=== PATIENT | male | born 1950 | race Caucasian/White ===

== ENCOUNTER 2024-03-08 12:35 | Outpatient (AMB) | payer MEDICARE, SELFPAY ==
--- OUTSIDE RECORDS SUMMARY | 2024-03-08 12:53 | XMS_ITS | Encounter Summary ---
Author Organization [facility] Address [address] [place] [address] Care Team Providers Care Chief Scientist Name Role Phone Jadon Dunn MD Primary Care Provider [phone] Encounter Details Date Type Department Care Team (Late st Contact Info) Description 03/01/2024 Orders Only [facility] Family Practice [address] [place] [phone] Jadon Dunn MD [address] [place] [address] Social History Tobacco Use Types Packs/Day Years Used Date Smoking Tobacco: Never Smokeless Tobacco: Never Comments:: Alcohol Use Standard Drinks/Week Comments Yes 0 (1 standard drink = 0.6 oz pur e alcohol) holidays [facility] Utilities Answer Date Recorded In the past 12 months has [employer], gas, oil, or water [employer] threatened to shut off services in your home? No 01/16/2024 Hunger Vital Sign Answer Date Recorded Within the past 12 months, y ou worried that your food would run out before you got the money to buy more. Never true 01/16/20 24 Within the past 12 months, t he food you bought just didn't last and you didn't have money to get more. Never true 01/16/2024 Transportation Answer Date Recorded In the past 12 months, has l ack of reliable transportation kept you from medical appointments, meetings, work or from getting things needed for daily living? No 01/16/2024 Housing Answer Date Recorded Housing Risk Low 2 01/16/2024 Housing Risk Medium Not on file 01/16/2024 Housing Risk High Not on file 01/16/2024 What is your living situation today? LSSTEADY 01/16/2024 Sex and Gender Information Value Date Recorded Sex Assigned at Male 09/03/2019 8:11 AM EDT Legal Sex Male 2:44 AM EDT Gender Identity Male 09/03/2019 8:11 AM EDT Sexual Orientation Straight 09/03/2019 8: 11 AM EDT Occupation Industry Job Start Date Job End Date Retired Not on file Not on file Not on file documented as of this encounter Progress Notes * Jadon Dunn MD - 03/01/2024 4:57 PM EST called requesting refill. documented in this encounter Plan of Treatment Upcoming Encounters Date Type Department Care Team (Late st Contact Info) Description 04/02/2024 10:45 AM EST Follow-Up [facility] 85 [place] Pulmonology [address] [address] Hardeep Mayers MD [address] [address] 04/12/2024 3:30 PM EST Follow-Up [facility] Neurology Clinic [address] [place] [address] Luz Felix MD [address] [place] [address] 06/05/2024 1:30 PM EDT Office Visit [facility] B [address] [place] [address] Timo Payne MD [address] [place] [address] 06/19/2024 2:00 PM EDT Follow-Up [facility] Endocrinology Clinic [address] [place] [address] Electrical Accessories I Assembler: Anna Moody MD 55 [place] [address] 07/16/2024 8:00 AM EDT Appointment [facility] Cardiac Ultrasound [address] [place] [address] 07/16/2024 9:00 AM EDT Follow-Up [facility] 4th floor Cardiology Medicine [address] [place] [address] Electrical Accessories I Assembler: Iveth Padron 02/10/2025 4:40 PM EST Follow-Up [facility] 4th floor Cardiology Medicine [address] [place] [address] Electrical Accessories I Assembler: Angely Yancey MD [address] [place] [address] documented as of this encounter Visit Diagnoses Not on filedocumented in this encounter Care Teams Chief Scientist Relationship Specialty Start Date End Date Jadon Dunn MD [address] [place] [address] PCP - General Family Medicine 08/25/16 documented as of this encounter
--- OUTSIDE RECORDS SUMMARY | 2024-03-08 12:53 | XMS_ITS | Encounter Summary ---
Author Organization [facility] Address [address] [place] [address] Care Team Providers Care Retail Zone Specialist Name Role Phone Jadon Dunn MD Primary Care Provider [phone] Encounter Details Date Type Department Care Team (Late st Contact Info) Description 02/20/2024 Telephone [facility] Family Practice [address] [place] [phone] Jadon Dunn MD [address] [place] [address] Social History Tobacco Use Types Packs/Day Years Used Date Smoking Tobacco: Never Smokeless Tobacco: Never Comments:: Alcohol Use Standard Drinks/Week Comments Yes 0 (1 standard drink = 0.6 oz pur e alcohol) holidays [facility] Utilities Answer Date Recorded In the past 12 months has [employer], gas, oil, or water [employer] threatened to shut off services in your [...] on file documented as of this encounter Miscellaneous Notes * Telephone Encounter - ABDOUL Gilman - 02/23/2024 10:02 AM EST The patient spoke with PCP yesterday 02/22/2024. Pt is all set. * Telephone Encounter - ABDOUL Gilman - 02/22/2024 1:00 PM EST The patients /July called and left a VM. I called her back and I am currently waiting for her to reach back out. July: [phone] * Telephone Encounter - ABDOUL Gilman - 02/22/2024 9:55 AM EST The patient was offered an appointment with Dr. Escalante today to discuss pain. Due to the patients pain and trouble with mobility the patient needs to coordinate transportation. The patient is going tocall us back once he secures transportation. He was reminded that UC or the ED are options as well. * Telephone Encounter - Ivon Urbina MA - 02/21/2024 3:57 PM EST Pt still waiting for your recommendations. Pt still with the same symptoms from yesterday Please advice? * Telephone Encounter - ABDOUL Gilman - 02/20/2024 10:07 AM EST The patient spoke with Dr. Dunn on 01/29/2024. The patient called this morning to discuss pain again. He stated that they tylenol is helping with severity but he is still in constant pain. He would like to know if anything else could be done. He is able to find relief based on position. The patient stated that he is finding himself spending theday on his back. He explained that he devlops worsening pain with movement. Pt is still denying fever, rash, chills, nausea, vomiting, diarrhea, swelling, leg weakness, numbing, tingling, and bowel or urinary incontinence. Do you have further recommendations? Would you like to evaluate him in office ? documented in this encounter Plan of Treatment Upcoming Encounters Date Type Department Care Team (Late st Contact Info) Description 04/02/2024 10:45 AM EST Follow-Up [facility] 85 [place] Pulmonology [address] [place] [address] Hardeep Mayers MD [address] [address] 04/12/2024 3:30 PM EST Follow-Up [facility] Neurology Clinic [address] [place] [address] Luz Felix MD [address] [place] [address] 06/05/2024 1:30 PM EDT Office Visit [facility] B [address] [place] [address] Timo Payne MD 119 [place] [address] 06/19/2024 2:00 PM EDT Follow-Up [facility] Endocrinology Clinic [address] [place] [address] Clinical Operations Leader: Anna Moody MD 55 [place] [address] 07/16/2024 8:00 AM EDT Appointment [facility] Cardiac Ultrasound [address] [place] [address] 07/16/2024 9:00 AM EDT Follow-Up [facility] 4th floor Cardiology Medicine [address] [place] [address] Clinical Operations Leader: Iveth Padron 02/10/2025 4:40 PM EST Follow-Up [facility] 4th floor Cardiology Medicine [address] [place] [address] Clinical Operations Leader: Angely Yancey MD [address] [place] [address] documented as of this encounter Visit Diagnoses Not on filedocumented in this encounter Care Teams Retail Zone Specialist Relationship Specialty Start Date End Date Jadon Dunn MD [address] [place] [address] PCP - General Family Medicine 08/25/16 documented as of this encounter
--- OUTSIDE RECORDS SUMMARY | 2024-03-08 12:53 | XMS_ITS | Encounter Summary ---
Author Organization [facility] Address [address] [place] [address] Care Team Providers Care Senior Production Manager Name Role Phone Jadon Dunn MD Primary Care Provider [phone] Reason for Visit * Reason Onset Date Comments PAC Appt Request - Established- Luz Felix MD 03/01/2024 Encounter Details Date Type Department Care Team (Late st Contact Info) Description 03/01/2024 Telephone [facility] Neurology Clinic [address] [place] [address] [phone] Telephone Intake, Staff PAC Appt Request - Gerardo- Luz Felix MD Social History Tobacco Use Types Packs/Day Years Used Date Smoking Tobacco: Never Smokeless Tobacco: Never Comments:: Alcohol Use Standard Drinks/Week Comments Yes 0 (1 standard drink = 0.6 oz pur e alcohol) holidays [facility] Utilities Answer Date Recorded In the past 12 months has [employer], gas, oil, or water [employer] threatened to shut off services in your [...] encounter Miscellaneous Notes * Telephone Encounter - Marisela Holland - 03/01/2024 4:03 PM EST Called and spoke with patient and r/s appt * Telephone Encounter - Tanesha Kunz (Jenn) - 03/01/2024 3:57 PM EST Pt's is calling to reschedule appt on 03/08/[address] Felix, I'm to schedule using DT. Please reach to Sean bah reschedule. # [phone] documented in this encounter Plan of Treatment Upcoming Encounters Date Type Department Care Team (Late st Contact Info) Description 04/02/2024 10:45 AM EST Follow-Up [facility] 85 [place] Pulmonology 85 [facility] [address] [place] [address] Hardeep Mayers MD [address] [address] 04/12/2024 3:30 PM EST Follow-Up [facility] Neurology Clinic [address] [place] [address] Luz Felix MD [address] [place] [address] 06/05/2024 1:30 PM EDT Office Visit [facility] B [address] [place] [address] Timo Payne MD [address] [place] [address] 06/19/2024 2:00 PM EDT Follow-Up [facility] Endocrinology Clinic [address] [place] [address] Composition Instructor: Anna Moody MD 55 [place] [address] 07/16/2024 8:00 AM EDT Appointment [facility] Cardiac Ultrasound [address] [place] [address] 07/16/2024 9:00 AM EDT Follow-Up [facility] 4th floor Cardiology Medicine [address] [place] [address] Composition Instructor: Iveth Padron 02/10/2025 4:40 PM EST Follow-Up [facility] 4th floor Cardiology Medicine [address] [place] [address] Composition Instructor: Angely Yancey MD [address] [place] [address] documented as of this encounter Visit Diagnoses Not on filedocumented in this encounter Care Teams Senior Production Manager Relationship Specialty Start Date End Date Jadon Dunn MD [address] [place] [address] PCP - General Family Medicine 08/25/16 documented as of this encounter
--- OUTSIDE RECORDS SUMMARY | 2024-03-08 12:53 | XMS_ITS | Encounter Summary ---
Author Organization [facility] Address [address] [place] [address] Care Team Providers Care Senior Managing Director Name Role Phone Jadon Dunn MD Primary Care Provider [phone] Reason for Referral * Surgical (Routine) - Authorized Specialty Diagnoses / Procedures Referred By Contac t Referred To Contact Neurosurgery Diagnoses Spinal stenosis, unspecified spinal region Jadon Dunn MD [address] [place] [address] Phone: tel: fax: Lauro Jolly MD [address] [place] [address] Phone: tel: fax: Referral ID Status Reason Start Date Expiration Date Visits Requested Visits Authorized [id number] Authorized Specialty Services Required 02/28/2024 08/29/2025 6 6 Encounter Details Date Type Department Care Team (Late st Contact Info) Description 02/28/2024 Orders Only [facility] Family Practice [address] [place] [phone] Jadon Dunn MD [address] [place] [address] [phone] Spinal stenosis, unspecified spinal region (Primary Dx) Social History Tobacco Use Types Packs/Day Years Used Date Smoking Tobacco: Never Smokeless Tobacco: Never Comments:: Alcohol Use Standard Drinks/Week Comments Yes 0 (1 standard drink = 0.6 oz pur e alcohol) holidays [facility] Utilities Answer Date Recorded In the past 12 months has th e electric, gas, oil, or water company threatened to shut off services in your [...] 8:11 AM EDT Sexual Orientation Straight 09/03/2019 8 :11 AM EDT Occupation Industry Job Start Date Job End Date Retired Not on file Not on file Not on file documented as of this encounter Plan of Treatment Upcoming Encounters Date Type Department Care Team (Late st Contact Info) Description 04/02/2024 10:45 AM EST Follow-Up [facility] 85 [place] Pulmonology [address] [address] Hardeep Mayers MD [address] [address] 04/12/2024 3:30 PM EST Follow-Up [facility] Neurology Clinic [address] [place] [address] Luz Felix MD 26 [place] [address] 06/05/2024 1:30 PM EDT Office Visit [facility] B [address] [place] [address] Timo Payne MD 119 [place] [address] 06/19/2024 2:00 PM EDT Follow-Up [facility] Endocrinology Clinic 55 [place] [address] Golf Teacher: Anna Moody MD [address] [place] [address] 07/16/2024 8:00 AM EDT Appointment [facility] Cardiac Ultrasound 55 [place] [address] 07/16/2024 9:00 AM EDT Follow-Up [facility] 4th floor Cardiology Medicine [address] [place] [address] Golf Teacher: Iveth Padron 02/10/2025 4:40 PM EST Follow-Up [facility] 4th floor Cardiology Medicine [address] [place] [address] Golf Teacher: Angely Yancey MD [address] [place] [address] Scheduled Referrals Name Type Priority Associated Diagnoses Orde r Schedule Ambulatory referral to Neurosurgery Outpatient Referral Routine Spinal stenosis, unspecified spinal region Expected: 02/28/2024, Expires: 08/27/2024 documented as of this encounter Visit Diagnoses Diagnosis Spinal stenosis, unspecified spinal region- Primary documented in this encounter Care Teams Senior Managing Director Relationship Specialty Start Date End Date Jadon Dunn MD [address] [place] [address] PCP - General Family Medicine 08/25/16 documented as of this encounter
--- OUTSIDE RECORDS SUMMARY | 2024-03-08 12:53 | XMS_ITS | Encounter Summary ---
Author Organization [facility] Address [address] [place] [address] Care Team Providers Care Twisting Press Operator Name Role Phone Jadon Dunn MD Primary Care Provider [phone] Encounter Details Date Type Department Care Team (Late Contact Info) Description 07/03/2021 myChart Message [facility] [address] [place] [phone] Mychart, Generic Provider [address] [place], [place] [phone] Follow up appointment requested Social History Tobacco Use Types Packs/Day Years Used Date Smoking Tobacco: Never Smokeless Tobacco: Never Comments:: Alcohol Use Standard Drinks/Week Comments Yes 0 (1 standard drink = 0.6 oz pur e alcohol) ocassionally Sex and Gender Information Value Date Recorded [...] Info) Description 04/02/2024 10:45 AM EST Follow-Up [facility] 85 [place] Pulmonology [address] [address] Hardeep Mayers MD [address] [address] 04/12/2024 3:30 PM EST Follow-Up [facility] Neurology Clinic 55 [place] [address] Luz Felix MD 26 [place] [address] 06/05/2024 1:30 PM EDT Office Visit [facility] B [address] [place] [address] Timo Payne MD [address] [place] [address] 06/19/2024 2:00 PM EDT Follow-Up [facility] Endocrinology Clinic 55 [place] [address] Picu Nurse: Anna Moody MD [address] [place] [address] 07/16/2024 8:00 AM EDT Appointment [facility] Cardiac Ultrasound [address] [place] [address] 07/16/2024 9:00 AM EDT Follow-Up [facility] 4th floor Cardiology Medicine [address] [place] [address] Picu Nurse: Iveth Padron 02/10/2025 4:40 PM EST Follow-Up [facility] 4th floor Cardiology Medicine [address] [place] [address] Picu Nurse: Angely Yancey MD [address] [place] [address] documented as of this encounter Visit Diagnoses Not on filedocumented in this encounter Care Teams Twisting Press Operator Relationship Specialty Start Date End Date Jadon Dunn MD [address] [place], [place] [phone] PCP - General Family Medicine 08/25/16 documented as of this encounter
--- OUTSIDE RECORDS SUMMARY | 2024-03-08 12:53 | XMS_ITS | Encounter Summary ---
Author Organization [facility] Address [address] [place] [address] Care Team Providers Care Tank Setter Name Role Phone Jadon Dunn MD Primary Care Provider [phone] Encounter Details Date Type Department Care Team (Late st Contact Info) Description 01/27/2023 Orders Only [facility] Interventional Radiology [address] [place] [address] [phone] Jenniffer Swanson MD [address] [place] [phone] Social History Tobacco Use Types Packs/Day Years Used Date Smoking Tobacco: Never Smokeless Tobacco: Never Comments:: Alcohol Use Standard Drinks/Week Comments Yes 0 (1 standard drink = 0.6 oz pure alcohol) occasional, less than one drink per month Transportation Answer Date Recorded Please ollie the areas for ich the patient would like information or assistance: None Apply 01/25/2023 Lack of Transportation (Medical) Not on file 01/25/2023 Housing Stability Answer Date Recorded Please ollie the areas for ich the patient would like information or assistance: None Apply 01/25/2023 Unable to Pay for Housing in the Last Year Not o n file 01/25/2023 Last EPDS Total Score Not on file 01/25/2023 Unstable Housing in the Last Year Not on file 01/25/2023 Sex and Gender Information Value Date Recorded [...] Info) Description 04/02/2024 10:45 AM EST Follow-Up [facility] 85 [place] Pulmonology [address] [address] Hardeep Mayers MD [address] [address] 04/12/2024 3:30 PM EST Follow-Up [facility] Neurology Clinic 55 [place] [address] Luz Felix MD 26 [place] [address] 06/05/2024 1:30 PM EDT Office Visit [facility] B [address] [place] [address] Timo Payne MD [address] [place] [address] 06/19/2024 2:00 PM EDT Follow-Up [facility] Endocrinology Clinic [address] [place] [address] Reservations Clerk: Anna Moody MD [address] [place] [address] 07/16/2024 8:00 AM EDT Appointment [facility] Cardiac Ultrasound [address] [place] [address] 07/16/2024 9:00 AM EDT Follow-Up [address] floor Cardiology Medicine [address] [place] [address] Reservations Clerk: Iveth Padron 02/10/2025 4:40 PM EST Follow-Up [address] Cardiology Medicine [address] [place] [address] Reservations Clerk: Angely Yancey MD [address] [place] [address] documented as of this encounter Visit Diagnoses Not on filedocumented in this encounter Care Teams Tank Setter Relationship Specialty Start Date End Date Jadon Dunn MD [address] [place] [address] PCP - General Family Medicine 08/25/16 documented as of this encounter
--- OUTSIDE RECORDS SUMMARY | 2024-03-08 12:53 | XMS_ITS | Encounter Summary ---
Author Organization [facility] Address [address] [place] [address] Care Team Providers Care Customs Verifier Name Role Phone Jadon Dunn MD Primary Care Provider [phone] Encounter Details Date Type Department Care Team (Late st Contact Info) Description 02/22/2024 Documentation [facility] Family Practice [address] [place] [phone] Jadon Dunn MD [address] [place] [address] Social History Tobacco Use Types Packs/Day Years Used Date Smoking Tobacco: Never Smokeless Tobacco: Never Comments:: Alcohol Use Standard Drinks/Week Comments Yes 0 (1 standard drink = 0.6 oz pur e alcohol) holidays [facility] Utilities Answer Date Recorded In the past 12 months has [employer], gas, oil, or water [employer] threatened to shut off services in your [...] Progress Notes * Jadon Dunn MD - 02/22/2024 11:33 AM EST PC to Pt Still having pain. MRI is Monday; Dr. Felix is next Monday Pain is OK when supine but is severe with standing. Also bad with sitting. Sx start in buttocks and go down his leg PT not really helped. Sleep is OK without difficulty. A/P: L Sciatica without trauma in Pt with complex PMHx Will add a plan LS film if he can tolerate Get MRI on Monday Tramadol prn daytime if needs to go to appointments. Follow up mychart. documented in this encounter Plan of Treatment Upcoming Encounters Date Type Department Care Team (Late st Contact Info) Description 04/02/2024 10:45 AM EST Follow-Up [facility] 85 [place] Pulmonology 85 [facility] [address] [place] [address] Hardeep Mayers MD [address] [address] 04/12/2024 3:30 PM EST Follow-Up [facility] Neurology Clinic [address] [place] [address] Luz Felix MD [address] [place] [address] 06/05/2024 1:30 PM EDT Office Visit [facility] B [address] [place] [address] Timo Panye MD [address] [place] [address] 06/19/2024 2:00 PM EDT Follow-Up [facility] Endocrinology Clinic [address] [place] [address] Transportation Maintenance Supervisor: Anna Moody MD [address] [place] [address] 07/16/2024 8:00 AM EDT Appointment [facility] Cardiac Ultrasound [address] [place] [address] 07/16/2024 9:00 AM EDT Follow-Up [facility] 4th floor Cardiology Medicine [address] [place] [address] Transportation Maintenance Supervisor: Iveth Padron 02/10/2025 4:40 PM EST Follow-Up [facility] 4th floor Cardiology Medicine [address] [place] [address] Transportation Maintenance Supervisor: Angely Yancey MD [address] [place] [address] Scheduled Orders Name Type Priority Associated Diagnoses Orde r Schedule XR Lumbar Spine 2 or 3 Views Imaging Routine Sciatica of left side Expected: 02/22/2024, Expires: 04/23/2025 documented as of this encounter Visit Diagnoses Diagnosis Sciatica of left side- Primary documented in this encounter Care Teams Customs Verifier Relationship Specialty Start Date End Date Jadon Dunn MD 4 [place] [address] PCP - General Family Medicine 08/25/16 documented as of this encounter
--- OUTSIDE RECORDS SUMMARY | 2024-03-08 12:53 | XMS_ITS | Clinical Summary ---
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 aspirin 81 mg EC tablet Take 1 tablet (81 mg total) by mouth once a day. 90 tablet 3 03/28/19 24 Active rosuvastatin (CRESTOR) 20 mg tablet Take 1 tablet (20 mg total) by mouth nightly. 90 tablet 3 03/28/19 24 Active lisinopriL (PRINIVIL,ZESTRI L) 40 mg tabletIndication s:Essential (primary) hypertension TAKE 1 TABLET EVERY DAY DIRECTED. 90 tablet 3 11/15/19 24 Active sertraline (ZOLOFT) 25 mg tablet Take 2 tablets (50 mg total) by mouth once a day. 60 tablet 3 11/18/19 24 Active methIMAzole (TAPAZOLE) 5 mg tablet Take 1 tablet (5 mg total) by mouth once a day. 90 tablet 3 12/22/19 24 Active diclofenac (VOLTAREN) 75 mg EC tablet Take 1 tablet (75 mg total) by mouth 2 times a day. 60 tablet 1 03/01/19 25 Active traMADoL (ULTRAM) 50 mg tabletIndication s:Spinal stenosis, unspecified spinal region Take 1 tablet (50 mg total) by mouth every 8 hours as needed for pain for up to 5 days. 15 tablet 03/04/19 25 025 Active traMADoL (ULTRAM) 50 mg tablet Take 1 tablet (50 mg total) by mouth every 8 hours as needed for pain for up to 5 days. 15 tablet 02/21/19 025 Discontinued Active Problems Problem Noted Date Diagnosed Date Acute neuritis 01/16/2024 Assessment & Plan (01/16/2024 5:05 PM EST): Differential includes infectious versus secondary to the Tapazole versus referred pain from the lumbar spine. Will obtain labs. Venous duplex in [place] demonstrated no sign of a DVT so I will not do a D-dimer at this time as there is no clinical symptoms to warrant it. Will start diclofenac 75 twice daily with the hopes of further controlling the pain. Patient is urged to walk with a cane or a walker and do everything he can to not fall. As he seems to be considerably improving, will continue to follow and make neurology and endocrine aware. 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 Luz Felix as the family is interested in considering infusion therapy for his dementia. They are not scheduled to see him till sometime later next year. Parkinsonism 06/09/2023 Assessment & Plan (07/19/2023 5:49 PM EDT): Neurology took him off the Sinemet for a week and then ultimately it appears decided to keep him off it. Clinically today he has little to no recognizable tremor. I recommend they follow-up with Dr. Felix to decide next steps concerning this as well as his memory loss. Vertigo 03/24/2022 Hyperglycemia 01/19/2022 Assessment & Plan (01/19/2022 1:33 PM EST): Will repeat A1c and lipids Short-term memory loss 01/19/2022 Assessment & Plan (07/19/2023 5:50 PM EDT): Unchanged clinically. His still has to give him direction with driving and he was able to get 1 out of 3 after 5 minutes on memory testing. He was able to do serial threes which is impressive. Would like neurology to complete the workup with this which includes an LP. Assessment & Plan (04/26/2023 2:01 PM EDT): Clinically seems to have responded to the Sinemet although he and his noticed only small differences. He was able to do serial threes and remember 3 objects at 5 minutes. I expressed with him my concern about him driving and for now he should only drive when someone is with him as he has some sense of direction issue. His feels that his coordination is excellent and not a concern. I reminded him that should he notice any decrease in his ability to respond he must stop driving and he agrees. He assures me he does not feel depressed but he still is hyperfocused on politics. I urged him to please stop watching the news and limited to less than 10 minutes a day. Assessment & Plan (01/25/2023 2:51 PM EST): Differential diagnosis includes medication induced versus small vessel disease versus related to his aortic stenosis versus new onset dementia Alzheimer's type. Will obtain labs to rule out metabolic causes as well as infectious causes. Will obtain MRI with and without contrast of the brain. Will contact neurology to assist in further evaluation. Differential diagnosis and outcomes are reviewed. He is to hold all of the vitamins and supplements he is currently taking. Assessment & Plan (07/27/2022 2:47 PM EDT): This appears resolved. Switch statins as noted above Assessment & Plan (01/19/2022 1:41 PM EST): I was apprised by his inability to recall objects at 1 and 3 minutes. Labs will be sent and he will be referred to neurology. In light of his longstanding tremor, he had a work-up by neurology in the distant past but neither of us can remember when. Encounter for screening colonoscopy 03/05/2021 Bilateral hearing loss 10/30/2018 Assessment & Plan (01/19/2022 1:41 PM EST): Appears stable. We will follow Assessment & Plan (09/04/2019 3:32 PM EDT): Reviewed details of hearing test; F/U if worsens; using drops for cerumen Assessment & Plan (10/30/2018 2:38 PM EDT): Bolanos Lateralized to Right; will refer for audiologic eval. Bilateral impacted cerumen 10/30/2018 Assessment & Plan (10/30/2018 2:39 PM EDT): After IC; TM irrigated and cerumen removed with spoon bilaterally without complication Encounter for general adult medical examination with abnormal findings 09/26/2017 Assessment & Plan (07/27/2022 2:46 PM EDT): All vaccines are up-to-date as other well is all other screening issues. I am curious if he should have a bone density test in light of his thyroid disease etc. He is very aggressive with weightbearing exercise so I do not imagine that he has osteoporosis. Message sent to Dr. Russo to determine neck steps. Advanced directive is up-to-date and current. Assessment & Plan (07/14/2021 3:14 PM EDT): He is scheduled for a colonoscopy this fall. All of his other issues are up-to-date all vaccines and other health maintenance issues. Advanced directive is recorded in [facility] Assessment & Plan (07/14/2020 1:39 PM EDT): Will set up CRC later this year; he requests PSA without Sx; will order. Continue exercise. Assessment & Plan (11/29/2019 10:02 AM EDT): Received influenza vaccine today otherwise completely caught up. Assessment & Plan (10/30/2018 11:18 AM EDT): Will give flu shot this year otherwise is current. Keep exercising 5 days a week. Assessment & Plan (09/26/2017 4:12 PM EDT): After IC discussion, agrees to Prostate cancer screening. Discuss pros and cons. Rec Zoster vaccine. Flu in the fall. Exercise; he agrees to join a local gym. Non-alcoholic fatty liver disease 08/31/2016 Assessment & Plan (07/27/2022 2:47 PM EDT): LFTs look great with his diet and exercise plan will continue to follow clinically Assessment & Plan (01/19/2022 1:41 PM EST): Check LFTs today. Assessment & Plan (07/14/2021 3:14 PM EDT): Very stable his weight stable and his exercise routine is excellent. We will check A1c today. LFTs as well Assessment & Plan (07/14/2020 1:43 PM EDT): Back on track exercising and losing weight. Will follow Assessment & Plan (11/29/2019 10:01 AM EDT): 5% weight loss over the last year. He is congratulated. Urged to keep up the diet and resume his exercise routine. Especially as winter comes on. We will continue to follow. Labs after the first of the year Assessment & Plan (10/30/2018 11:17 AM EDT): 10 pounds over the last 12 months. Continue current eating regimen and exercise. Assessment & Plan (05/01/2018 3:23 PM EDT): We discussed his weight gain and the goal of 190. We will add Metamucil when teaspoon 3 times daily increase fluid exercise decrease carbohydrates decrease meal size. Recheck in 3-6 months depending upon how successful he is doing. Assessment & Plan (09/26/2017 4:17 PM EDT): Very happy with weight loss progress. CHeck LFT's and ultimately needs repeat US if weight loss gets to under 200; his goal is 170's Gall stone 08/31/2016 Benign head tremor 05/13/2014 Assessment & Plan (01/25/2023 2:50 PM EST): He has had this times many years and I believe sometime in the past he was seen by neurology but he cannot recall and I do not see any evidence of that in epic. He no worse than prior. Carpal tunnel syndrome of right wrist 01/21/2014 Arthritis of hand, degenerative 12/25/2013 Graves' disease 12/05/2011 Assessment & Plan (01/16/2024 5:06 PM EST): Currently on Tapazole. His labs were just done in our stable. Will discuss with Dr. Russo Assessment & Plan (07/19/2023 5:50 PM EDT): He is clinically asymptomatic currently on Tapazole 5 mg a day. 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 Assessment & Plan (06/20/2023 9:34 AM EDT): Documented history of graves disease. Stable on Methomazole 5mg Daily. - Continue home methimazole. Assessment & Plan (07/14/2021 3:14 PM EDT): He has a follow-up this fall with endocrinology we will check TSH today. Assessment & Plan (01/12/2021 2:57 PM EST): We discuss the pro and con of tapazole; he agrees to continue. Assessment & Plan (07/14/2020 1:39 PM EDT): Per Dr. Russo; ? If needs BMD scan; clinically unstable Assessment & Plan (09/04/2019 3:29 PM EDT): PEr Karan; doing well. Assessment & Plan (05/01/2018 3:23 PM EDT): We will recheck TSH today. Previous neurology workup felt his tremor was associated to his previous history of Graves'. Diverticulosis 11/16/2010 GONSALO (obstructive sleep apnea) 11/16/2010 Assessment & Plan (07/19/2023 5:48 PM EDT): This week and will be the first time since he stopped using his CPAP that his can determine if he has had any apnea or worsening of snoring. Patient states he does not feel he needs it we will be curious to see what her thoughts would be. Questions also whether he needs a repeat sleep study with his recent weight loss. Might consider. Assessment & Plan (01/19/2022 1:41 PM EST): He reports good success with his CPAP. He will discuss with his if she notices any unusual behavior Assessment & Plan (01/12/2021 3:02 PM EST): Uses CPAP successfully; Assessment & Plan (05/01/2018 3:24 PM EDT): He has reported daytime fatigue with napping almost every day. Unsure if this is because of his semi-nursing home or because of insufficient sleep. Will refer back to pulmonary for further evaluation and updating his sleep status Vitamin d deficiency 01/16/2008 Assessment & Plan (01/19/2022 1:42 PM EST): We will check 25-hydroxy vitamin D today Assessment & Plan (11/29/2019 10:02 AM EDT): Increase to 4000 a day. Hyperlipidemia 01/16/2008 Assessment & Plan (06/21/2023 11:02 AM EDT): Documented history of mixed dyslipidemia. LDL at goal on rosuvastatin 20mg nightly Latest Ref Rng & Units 01/25/2023 3:01 PM 01/19/2022 1:45 PM 07/14/2021 3:18 PM Lipids Cholesterol <200 mg/dL 139 157 140 Triglycerides <150 mg/dL 90 115 69 Cholesterol, HDL > OR = 40 mg/dL 62 64 69 LDL-Cholesterol mg/dL (calc) 60 73 56 - Continue home Crestor 20mg nightly Assessment & Plan (07/27/2022 2:46 PM EDT): In light of concerns about memory loss etc. we will stop simvastatin and switch to rosuvastatin 5 mg once a day. Recheck LFTs as well as lipid panel before next visit Assessment & Plan (07/14/2020 1:39 PM EDT): On Simvastatin 40; check labs Hypertension 01/16/2008 Assessment & Plan (06/21/2023 11:02 AM EDT): Documented history of essential HTN. Taking Lisinopril 40mg Daily. Blood pressure on admission: 139/91, baseline. - Resume Lisinopril 40mg Daily as needed for BP control. Assessment & Plan (07/27/2022 2:47 PM EDT): Currently on lisinopril 40 mg a day with stable labs. Continue. Assessment & Plan (01/19/2022 1:41 PM EST): Lisinopril 40 mg once a day. Unlikely to be contributing to his memory loss. Check BUN and creatinine Assessment & Plan (07/14/2021 3:14 PM EDT): Currently on lisinopril 40 mg a day. Continue with his aggressive exercise routine. We will check BUN/creatinine electrolytes Assessment & Plan (07/14/2020 1:40 PM EDT): On lisinopril 40/day; will check BUN/creat Assessment & Plan (11/29/2019 10:02 AM EDT): Stable on lisinopril 40 today. Assessment & Plan (05/01/2018 3:23 PM EDT): We will continue his lisinopril 40 mg a day but I asked him to please take it at bedtime. He would like to restart the spironolactone. Will restart and 25 mg in the morning. We will recheck electrolytes BUN/creatinine 1 week after. Assessment & Plan (09/26/2017 4:18 PM EDT): Based upon his weight loss and low readings today, will dc the spironolactone and have him come in in 2 weeks for labs and repeat BP check. He is to check BP at home and let me know if > 140/>90. Resolved Problems Problem Noted Date Diagnosed Date Resolved Date Severe aortic stenosis 05/05/202312/31 Assessment & Plan (07/19/2023 5:50 PM EDT): Status post TAVR everything went well and recent echo cooks and confirms that things are working well. I was hoping he might have some improved neurological status from having this replaced. I do not recognize that clinically currently he is currently on aspirin 81 mg a day and clopidogrel 75 a day. According to the and cardiology notes he should be on the clopidogrel for 3 months and then stop. Assessment & Plan (06/21/2023 11:08 AM EDT): Documented history of severe aortic stenosis. Recent pre-TAVR TTE finds peak/mean gradient (64/41 mmHg). Now s/p successful 26mm Leah S3 Ultra Resilia TAVR valve placement. Hemodynamically stable throughout, no vasopressor or TVP requirement. Right femoral access with Mantis closure, Left via Perclose. Patient returned to cardiac short stay in hemodynamically stable condition. Left femoral venous sheath left in place for vascular access was removed without difficulty. No evidence of oozing, ecchymosis, hematoma. Patient admitted for overnight observation. 06/21/23 - Patient had uneventful night. Groin sites stable, soft no hematoma or oozing. He denies chest pain, palpitations, shortness of breath. He is tolerating PO intake and ambulating at his baseline. Continues on plavix 75 mg daily and asa 81 mg daily. Stable EKG intervals. POD1 TTE showing MG of 13 mmHg. After discussion with Dr. Reyes patient is stable for discharge today. - Discharge home - 75 mg daily x 3 months and aspirin 81 mg daily for lifetime - TTE in 1 mo and 1 year - Endocarditis prophylaxis - No driving x 14 days - Outpatient follow up per Structural Heart Team. Elevated LFTs 04/05/2016 09/26/2017 Tremor of both hands 05/13/2014 023 Assessment & Plan (07/27/2022 2:47 PM EDT): Clinically it appears different and considerably less than prior. We will continue to follow. Assessment & Plan (01/19/2022 1:42 PM EST): He is referred back to neurology both for the tremor, the peripheral loss of sensation to vibration in the foot, and his memory loss. Labs pending. Distant work-up diagnosed with essential tremor years ago by [facility] neurology Assessment & Plan (07/14/2021 3:15 PM EDT): Clinically this remains stable and unchanged. We reviewed the fact that his brother was recently diagnosed with Parkinson's. He is to make me aware should he have any worsening of his symptoms. Assessment & Plan (07/14/2020 1:43 PM EDT): PT feels this is not clinically bothersome; no Treatment at this time. Assessment & Plan (05/01/2018 3:24 PM EDT): Workup by neurology in 2014 felt this was not new onset of Parkinson's. He continues to have slight tremor at rest of his hands and with a slight head purnima but that is irregular and can occur both at rest and with intention. He has no rigidity or flattening of his face ease. Both he and his feel comfortable this will follow Aortic stenosis 08/29/2012 01/01/2024 Overview (10/27/2016): mild; last echo 08/17 Assessment & Plan (04/26/2023 1:54 PM EDT): We again reviewed the indications for this and Sean is ready to move forward with aortic valve replacement. Will contact the TAVR team. Assessment & Plan (01/25/2023 2:50 PM EST): We review the recent echocardiogram together. Will discuss his memory changes with Dr. Lux. Will continue rosuvastatin 5 mg a day and lisinopril 40 mg a day Assessment & Plan (07/27/2022 2:46 PM EDT): Clinically he is unchanged. We will continue to follow clinically and will follow-up with Dr. Lux. Likely in his future will be a TAVR procedure but so far he has been very stable Assessment & Plan (07/14/2021 3:14 PM EDT): This is remained stable. Follow-up with Dr. Lux in cardiology. No active clinical signs. Assessment & Plan (01/12/2021 3:02 PM EST): Recent ETT was excellent; Echo stable Assessment & Plan (07/14/2020 1:38 PM EDT): Will review with Dr. Lux re next steps; clinicallly he is stable. Assessment & Plan (05/01/2018 3:22 PM EDT): We reviewed Dr. Lux's evaluation. I let him listen to his aortic valve. We discuss in any event he does need to replace he is a good candidate for a Travon procedure. He is not any presyncopal symptoms or other signs of aortic valve failure. Will continue to watch for these but till then continue current care. Assessment & Plan (09/26/2017 4:13 PM EDT): He never had the repeat echo. Will order today. Encounters * This document contains information received from the source organization and may not represent a complete record from that organization. Date Type Department Care Team Description 03/01/2024 myChart Message [address] [phone] Jadon Dunn MD Refill needed on tramadol 03/01/[address] [phone] Jadon Dunn MD Spinal stenosis, unspecified spinal region (Primary Dx) 03/01/2024 Orders Only [facility] [address] [phone] Jadon Dunn MD 03/01/2024 Telephone [facility] [address] [place] [phone] Telephone Intake, Staff PAC Appt Request - Established- Luz Felix MD 02/28/2024 Orders Only [address] [phone] Jadon Dunn MD Spinal stenosis, unspecified spinal region (Primary Dx) 02/28/[address] [phone] Jadon Dunn MD 02/22/[address] [phone] Jadon Dunn MD 02/20/[address] [address] Jadon Dunn MD 01/29/[address] [phone] Jadon Dunn MD 01/29/[address] [address] Jadon Dunn MD 01/18/2024 myChart Message [address] [phone] Jadon Dunn MD labs look great 01/16/2024 3:00 PM EST Office Visit [address] [phone] Jadon Dunn MD Acute neuritis (Primary Dx); Alzheimer's disease (HCC); Graves' disease 01/10/2024 Telephone [facility] [address] [place] [phone] Piedad Smith MA 01/01/2024 1:40 PM EST Follow-Up [address] floor Cardiology Medicine [address] [place] [phone] Manager Training And Development: Angely Yancey MD Mixed hyperlipidemia (Primary Dx); S/P TAVR (transcatheter aortic valve replacement); Hypertension 01/01/[address] floor Cardiology Medicine [address] [place] [phone] Manager Training And Development: Angely Yancey MD 12/26/[address] floor Cardiology Medicine [address] [place] [phone] Manager Training And Development: Iveth Padron Telephone Intake, Staff PAC Appt Request - Established 12/22/2023 myChart Message [facility] [address] [place] [phone] Manager Training And Development: Anna Moody MD results 12/22/2023 Orders Only [facility] [address] [place] [phone] Manager Training And Development: Anna Moody MD 12/20/2023 3:00 PM EST Follow-Up [facility] [address] [place] [phone] Manager Training And Development: Anna Moody MD Graves' disease (Primary Dx) from Last 3 Months Immunizations Name Administration Dates Next Due COVID-19, Pfizer, mRNA, Biva lent Booster, PF, 30 mcg/0.3 mL dose (for age 12 y and up) 06/21/2022 Covid-19, Moderna, mRNA, Vac cine, PF, 50 mcg/0.5 mL (for age 12 y and up) 10/14/2023,10/30/2022 Covid-19, Pfizer, mRNA, [place] valent, PF 30 mcg/0.3 mL dose (for ages 12 and older) 06/17/2021,11/10/2020,04/30/2020,04/02 Diphtheria and Tetanus Toxoi ds, Adsorbed for Pediatric Use 12/04/1992 INFLUENZA, SPLIT VIRUS, TRIVALENT, PF 11/17/2015 ,01/28/2014,02/22/2012 Influenza Whole 11/12/2019 Influenza, High Dose Seasona l, Preservative Free 10/14/2023,10/30/2022,11/07/2017 Influenza, High Dose Seasona l, Quadrivalent PF 10/30/2022,12/01/2021,11/29/2020 Influenza, Unspecified 12/14/2018 Pneumococcal Conjugate Vacci ne, 13 Valent 12/14/2018,11/17/2015 Pneumococcal Polysaccharide Vaccine, 23 Valent 04/03/2013 Pneumococcal conjugate PCV20,polysaccharide [id number] conjugate, adjuvant, PF (Prevnar 20) 11/27/2022 RSV, Bivalent, Protein Subun it RSVpreF, Diluent Reconstituted, 0.5 mL, PF 11/10/2022 Tetanus Toxoid, Reduced Diph theria Toxoid, and Acellular Pertussis Vaccine, Adsorbed 06/21/2022,02/22/2012 Zoster Vaccine Recombinant 10/16/2018,06/26/2018 Zoster Vaccine, Live 03/09/2013 Family History Medical History Relation Name Comments Other Brother 1 Fraternal histo ry of Type 2 Diabetes Mellitus Other Brother 2 Fraternal histo ry of Type 2 Diabetes Mellitus Other Father Paternal histor y of Silent Myocardial Infarction /Paternal history of Stroke Syndrome age 58. Other Mother Maternal histor y of Congestive Heart Failure , early 70s Other Other Denied Family h istory of Thyroid Disorder Relation Name Status Comments Brother 1 Brother 2 Father Mother Other Social History Tobacco Use Types Packs/Day Years Used Date Smoking Tobacco: Never Smokeless Tobacco: Never Tobacco Cessation:Counseling Given: Not Answered Comments:: Alcohol Use Standard Drinks/Week Comments Yes 0 (1 standard drink = 0.6 oz pur e alcohol) holidays [facility] Utilities Answer Date Recorded In the [...] file Not on file Not on file Last Filed Vital Signs Vital Sign Reading Time Taken Comments Blood Pressure 132/88 01/16/2024 3:00 PM EST Pulse 70 01/16/2024 3:00 PM EST Temperature 36.7 ??C (98.1 ??F) 10/13/2023 3:03 PM ED T Respiratory Rate 16 10/13/2023 3:03 PM EDT Oxygen Saturation 98% 01/16/2024 3:00 PM EST Inhaled Oxygen Concentration - - Weight 86.3 kg (190 lb 3.2 oz) 01/16/2024 3:00 PM EST Height 177.8 cm (5' 10 ) 01/16/2024 3:00 PM EST Body Mass Index 27.29 01/16/2024 3:00 PM EST Plan of Treatment Upcoming Encounters Date Type Department Care Team (Late st Contact Info) Description 04/02/2024 10:45 AM EST Follow-Up [facility] [address] [place] [facility] [address] [place] [address] Hardeep Mayers MD [address] [phone] 04/12/2024 3:30 PM EST Follow-Up [facility]rology Clinic [address] [place] [address] Luz Felix MD [address] [place] [address] 06/05/2024 1:30 PM EDT Office Visit [facility] [address] [place] [address] Timo Payne MD [address] [place] [phone] 06/19/2024 2:00 PM EDT Follow-Up [facility] [address] [place] [address] Manager Training And Development: Anna Moody MD [address] [place] [phone] 07/16/2024 8:00 AM EDT Appointment [facility] Cardiac Ultrasound [address] [place] [address] 07/16/2024 9:00 AM EDT Follow-Up [facility] 4th floor Cardiology Medicine [address] [place] [address] Manager Training And Development: Iveth Padron 02/10/2025 4:40 PM EST Follow-Up [facility] 4th floor Cardiology Medicine [address] [place] [address] Manager Training And Development: Angely Yancey MD [address] [place] [phone] Health Maintenance Due Date Last Done Comments Alcohol/Substance Use Screening 02/07/2024 Fall Risk Screening 02/07/2024 09/04/2019 Basic Metabolic Panel 01/16/2025 01/17/2024 , 06/21/2023, 06/20/2023, Additional history exists DTaP,Tdap,and Td Vaccines (4 - Td or Tdap) 06/21/2032 06/21/2022, 02/22/2012, 12/04/1992 Tobacco Screening 02/06/2042 01/16/2024 Hepatitis C Screening Completed 04/05/2016 Zoster Vaccines Completed 10/16/2018, 06/07, 03/09/2013 Colon Cancer Screening Discontinued Colonoscopy Discontinued 05/10/2022, 05/2022, 11/02/2015, Additional history exists RSV Vaccine (60+ years old a nd patients) Completed 11/10/2022 Pneumococcal Vaccine: 65+ Years Completed 11/27/2022, 12/14/2018, 11/17/2015, Additional history exists Statin Therapy Completed 03/28/2023 COVID-19 Vaccine Completed 10/14/2023, , 06/21/2022, Additional history exists Influenza Vaccine Completed 10/14/2023, , 10/30/2022, Additional history exists Depression Screening and Follow-Up Discontinued 01/16/2024 Social Drivers of Health Ingrid ual Screening Discontinued 01/16/2024 Cologuard Discontinued FOBT / Fit Test Discontinued Health Care Proxy Review Discontinued Hepatitis B Vaccines Discontinued Sigmoidoscopy Discontinued Medical Devices Implanted Type Area Records Management Director Device Identifier Shelf Expiration Date Model / Serial / Lot System Closure And Repair Suture-Mediated Perclose Prostyle - S0 - [id number] Implanted:Qty: 1 on 06/20/2023 by Tina Reyes MD at [facility] Implant Right: Groin [employer] [id number] 03/08/2025 [id number] / 0 / [id number] System Closure And Repair Suture-Mediated Perclose Prostyle - S0 - [id number] Implanted:Qty: 1 on 06/20/2023 by Tina Reyes MD at [facility] Implant Right: Groin [employer] [id number] 03/08/2025 [id number] / 0 / [id number] Device Closure Vascular Plug 6fr Angio-Seal Vip - S0 - [id number] Implanted:Qty: 1 on 06/20/2023 by Tina Reyes MD at [facility] Implant Left: Groin [employer] [id number] 12/23/2023 [id number] / 0 / [id number] Valve Heart Transcatheter With Commander System 26mm Quintana Leah 3 Ultra Resilia - [id number] - [id number] Implanted:Qty: 1 on 06/20/2023 by Tina Reyes MD at [facility] Tissue N/A: Heart [employer] 09/26/2025 [id number] / [id number] / Explanted Type Area Records Management Director Device Identifier Shelf Expiration Date Model / Serial / Lot Catheter Femoral Insertion [place]-Kumar J-Tip 5fr 90cm - S0 - [id number] Explanted:Qty: 1 on 06/20/2023 by Tina Reyes MD at [facility] Catheter Left: Vein [employer] [id number] 12/25/2024 [id number] / 0 / [id number] Procedures * Due to [place] state law, this organization might not be sharing negative HIV tests. Procedure Name Priority Date/Time Associated Diagnosis Comments MRI LUMBAR SPINE WO CONTRAST Routine 02/25/2024 5:20 PM EST Sciatica of left side IMAGING - SCANNED 02/25/2024 VITAMIN B12 Routine 01/17/2024 1:57 PM EST SEDIMENTATION RATE, AUTOMATED Routine 01/17/2024 1:57 PM EST Acute neuritis [facility] TICK-BORNE DISEASE, ANTIBODY [id number] Routine 01/17/2024 1:57 PM EST Acute neuritis C-REACTIVE PROTEIN Routine 01/17/2024 1: 57 PM EST Acute neuritis CBC AUTO DIFFERENTIAL Routine 01/17/2024 1:57 PM EST Acute neuritis COMPREHENSIVE METABOLIC PANEL Routine 01/17/2024 1:57 PM EST Acute neuritis T4, FREE Routine 12/20/2023 3:17 PM EST Graves' disease TSH Routine 12/20/2023 3:17 PM EST Graves' disease HEPATITIS PANEL, ACUTE Routine 7 11:38 AM EST COLONOSCOPY 11/02/2015 11:14 AM EDT from Last 3 Months or Most Recently Relevant to Health Maintenance Results * Due to [place] state law, this organization might not be sharing negative HIV tests. * MRI Lumbar Spine without Contrast (02/25/2024 5:20 PM EST) Anatomical Region Laterality Modality Spine, L-spine Magnetic Resonan ce 02/25/2024 5:0 0 PM EST Impressions 02/27/2024 11:01 AM EST Moderate to severe lumbar degenerative disc disease and facet arthropathy. Disc extrusion at L2-L3 impinges the traversing right L3 nerve root. Severe spinal canal stenosis at L3-L4. Disc protrusion at L5-S1 impinges the exiting left L5 nerve root. If this radiology report contains a blank impression section, it is an incomplete radiology report. ??Please contact the interpreting radiologist or applicable radiology division as soon as possible to obtain the completed interpretation. ? Workstation ID: [id number] Narrative 02/27/2024 11:01 AM EST INDICATION: Severe Left eg pain with any ambulation. M54.32 - I10 - Sciatica, left side TECHNIQUE: Multiplanar, multisequence MRI of the lumbar spine was performed without contrast using standard departmental protocol. COMPARISON: There are no pertinent prior studies available at this time. FINDINGS: Numbering: This report assumes five nonrib-bearing lumbar-type vertebrae. ??L5 is identified by the iliolumbar ligament and lumbosacral angle. Alignment: Grade 1 retrolisthesis L2 on L3. Slight anterolisthesis L5 on S1. Bones: Edematous endplate degeneration at L2-L3 and L3-L4. No acute fracture. Developmental stenosis: Absent. Sacroiliac joints: Incompletely imaged. Nerves: The conus medullaris terminates at L1-L2. ??The visualized spinal cord signal is intact. ??No clumping or thickening of cauda equina nerve roots. T12-L1: Imaged on sagittal sequences only. No spinal canal or neuroforaminal stenosis. L1-L2: Intervertebral disc: Small bulge. Spinal canal: No stenosis. Neuroforamina: Mild narrowing. Facet joints: Mild arthropathy. L2-L3: Intervertebral disc: Disc bulge with right subarticular extrusion. 1 cm: Migration. Spinal canal: Moderate stenosis. Disc extrusion impinges the traversing right L3 nerve root. Neuroforamina: Moderate to severe narrowing. Facet joints: Mild arthropathy. L3-L4: Intervertebral disc: Disc bulge. Spinal canal: Severe stenosis. Neuroforamina: Moderate to severe narrowing. Facet joints: Mild arthropathy. L4-L5: Intervertebral disc: Disc bulge. Spinal canal: Mild stenosis. Neuroforamina: Moderate to severe narrowing. Facet joints: Moderate arthropathy, left greater than right. L5-S1: Intervertebral disc: Disc bulge. Left foraminal protrusion. Spinal canal: No stenosis. Neuroforamina: Severe left narrowing with disc protrusion impinging the exiting left L5 nerve root. Mild right narrowing. Facet joints: Moderate arthropathy with left sided effusion. Abdomen/Retroperitoneum: Probable renal cysts. Paraspinal muscles and soft tissues: Mild symmetric fatty atrophy of the paraspinal musculature. Resulting Agency Comment [id number] Procedure Note Benjamin Chamorro MD - 02/27/2024 INDICATION: Severe Left eg pain with any ambulation. M54.32 - I10 -Sciatica, left side TECHNIQUE: Multiplanar, multisequence MRI of the lumbar spine wasperformed without contrast using standard departmental protocol. COMPARISON: There are no pertinent prior studies available at this time. FINDINGS: Numbering: This report assumes five nonrib-bearing lumbar-type vertebrae.L5 is identified by the iliolumbar ligament and lumbosacral angle. Alignment: Grade 1 retrolisthesis L2 on L3. Slight anterolisthesis L5 onS1. Bones: Edematous endplate degeneration at L2-L3 and L3-L4. No acutefracture. Developmental stenosis: Absent. Sacroiliac joints: Incompletely imaged. Nerves: The conus medullaris terminates at L1-L2. The visualized spinalcord signal is intact. No clumping or thickening of cauda equina nerveroots. T12-L1: Imaged on sagittal sequences only. No spinal canal or neuroforaminalstenosis. L1-L2: Intervertebral disc: Small bulge. Spinal canal: No stenosis. Neuroforamina: Mild narrowing. Facet joints: Mild arthropathy. L2-L3: Intervertebral disc: Disc bulge with right subarticular extrusion. 1 cm:Migration. Spinal canal: Moderate stenosis. Disc extrusion impinges the traversingright L3 nerve root. Neuroforamina: Moderate to severe narrowing. Facet joints: Mild arthropathy. L3-L4: Intervertebral disc: Disc bulge. Spinal canal: Severe stenosis. Neuroforamina: Moderate to severe narrowing. Facet joints: Mild arthropathy. L4-L5: Intervertebral disc: Disc bulge. Spinal canal: Mild stenosis. Neuroforamina: Moderate to severe narrowing. Facet joints: Moderate arthropathy, left greater than right. L5-S1: Intervertebral disc: Disc bulge. Left foraminal protrusion. Spinal canal: No stenosis. Neuroforamina: Severe left narrowing with disc protrusion impinging theexiting left L5 nerve root. Mild right narrowing. Facet joints: Moderate arthropathy with left sided effusion. Abdomen/Retroperitoneum: Probable renal cysts. Paraspinal muscles and soft tissues: Mild symmetric fatty atrophy of theparaspinal musculature. IMPRESSION: Moderate to severe lumbar degenerative disc disease and facetarthropathy. Disc extrusion at L2-L3 impinges the traversing right L3 nerve root. Severe spinal canal stenosis at L3-L4. Disc protrusion at L5-S1 impinges the exiting left L5 nerve root. If this radiology report contains a blank impression section, it is anincomplete radiology report. Please contact the interpreting radiologistor applicable radiology division as soon as possible to obtain thecompleted interpretation. Workstation ID: [id number] us Jadon Dunn MD IMG MRI PROCEDURES Final Resul t * IMAGING - SCANNED (02/25/2024) Anatomical Region Laterality Modality Other us Onbase Scan Radha SCANNED PROCEDURES Final Resu lt * Vitamin B12 & Folate (01/17/2024 1:57 PM EST) Pathologist [facility] Vitamin B12 450 200 - 1,100 pg/mL 01/18/2024 3:52 AM EST [facility] Folate, Serum 18.5 ng/mL 01/18/2024 3:52 AM EST [facility] Comment: ? Reference Range ? Low: ? <3.4 ? Borderline: ?3.4-5.4 ? Normal: ?>5.4 01/17/2024 1:57 PM EST 01/18/2024 2:54 AM EST Narrative [facility] - 01/24/2024 1:58 PM EST FASTING:NO us Jadon Dunn MD LAB BLOOD ORDERABLES Final Res ult [facility] [address] [facility] 3rd Floor, [place] [address], [place] [phone] [facility] [employer] [facility] [address] [place] [address] * Tick-borne disease, antibody (01/17/2024 1:57 PM EST) A. Phagocytophilum IGG <1:64 <1:64 01/24/2024 1:51 PM EST [facility] A. Phagocytophilum IGM <1:20 <1:20 01/24/2024 1:51 PM EST [facility] Interpretation ANTIBODY NOT DETECTED 01/24/2024 1:51 PM EST [facility] Comment See Comments 01/24/2024 1:51 PM EST [facility] Comment: Anaplasma phagocytophilum is the tick-borne agent causing Human Granulocytic Ehrlichiosis (HGE). HGE is distinct and separate from Human Monocytic Ehrlichiosis (HME), caused by Ehrlichia chaffeensis. Serologic cross-reactivity between A. phagocytophilum and E. Chaffeensis is minimal (5-15%). This test was developed and its performance characteristics have been determined by [employer]. It has not been cleared or approved by the U.S. Food and Drug Administration. This assay has been validated pursuant to the CLIA regulations and is used for clinical purposes. WA1 IGG Antibody, IFA <1:256 01/19/2024 6:09 PM EST [facility] Comment: REFERENCE RANGE: ??<1:256 ?INTERPRETIVE CRITERIA: ? <1:256 Antibody not detected ? > or = 1:256 Antibody detected Babesia duncani, also known as WA1, has been associated with symptoms similar to those caused by Babesia microti. Little, if any, cross-reactivity occurs between Babesia microti and WA1. This test was developed and its analytical performance characteristics have been determined by [employer]. It has not been cleared or approved by FDA. This assay has been validated pursuant to the CLIA regulations and is used for clinical purposes. Babesia Microti IgG <1:64 <1:64 titer 01/19/2024 11:31 PM EST [facility] Comment: This test was developed and its analytical performance characteristics have been determined by [employer]. It has not been cleared or approved by the FDA. This assay has been validated pursuant to the CLIA regulations and is used for clinical purposes. Babesia Microti IgM <1:20 <1:20 titer 01/19/2024 11:31 PM EST [facility] Comment: This test was developed and its analytical performance characteristics have been determined by [employer]. It has not been cleared or approved by the FDA. This assay has been validated pursuant to the CLIA regulations and is used for clinical purposes. Interpretation See Comments 01/19/2024 11:31 PM EST [facility] Comment: ANTIBODY NOT DETECTED Elevated antibody levels to B. microti indicate exposure to the organism. Human babesiosis infection is transmitted by the bite of an infected Ixodes tick or less frequently from transfusion with blood from an infected donor. Definitive diagnosis is made by identifying intraerythrocytic organisms in peripheral blood. In patients with low parasitemia, antibody detection by IFA is recommended. IgG levels greater than or equal to 1:1024 can be detected in acute phase patients with parasites in blood smears. The IFA assay can be used as a seroepidemiologic tool to study the frequency and distribution of B. microti in endemic areas especially in persons with mixed infections also involving Borrelia burgdorferi. Lyme Ab Screen <0.90 index 01/18/2024 5:27 AM EST [facility] Comment: ? Index ?Interpretation ? ----- ? < 0.90 ? Negative ? 0.90-1.09 ?Equivocal ? > 1.09 ? Positive ?? As recommended by the Food and Drug Administration (FDA), all samples with positive or equivocal results in a Borrelia burgdorferi antibody screen will be tested using a blot method. Positive or equivocal screening test results should not be interpreted as truly positive until verified as such using a supplemental assay (e.g., B. burgdorferi blot). The screening test and/or blot for B. burgdorferi antibodies may be falsely negative in early stages of Lyme disease, including the period when erythema migrans is apparent. E. Chaffeenis AB IGG <1:64 <1:64 01/06 6:49 AM EST [facility] E. Chaffeensis AB IGM <1:20 <1:20 01/22/2024 6:49 AM EST [facility] Interpretation ANTIBODY NOT DETECTED 01/22/2024 6:49 AM EST [facility] Comment See Comments 01/22/2024 6:49 AM EST [facility] Comment: Ehrlichia chaffeensis has been identified as the causative agent of Human Monocytic Ehrlichiosis (HME). Infected individuals produce specific antibodies to E. chaffeensis that can be detected by an immunofluorescent antibody (IFA) test. Single IgG IFA titers of 1:64 or greater indicate exposure to E. chaffeensis. A four-fold rise in IgG titers between acute and convalescent samples and/or the presence of IgM antibody against E. chaffeensis suggest recent or current infection. This test was developed and its performance characteristics have been determined by [employer]. It has not been cleared or approved by the U.S. Food and Drug Administration. This assay has been validated pursuant to the CLIA regulations and is used for clinical purposes. Blood Structure of peripheral vein / Unknown 01/17/2024 1:57 PM EST 01/18/2024 1:30 AM EST Narrative [facility] - 01/24/2024 1:58 PM EST FASTING:NO us Jaodn Dunn MD LAB BLOOD ORDERABLES Final Res ult [facility] [address] [facility] 3rd Floor, [place] [address], [place] [phone] [facility] [address] [place] [address] [facility] [address] [place] [address] * CBC Auto Differential (01/17/2024 1:57 PM EST) [facility] White Blood Cell Count 8.9 3.8 - 10.8 Thousand/ uL 01/18/2024 6:22 AM EST [facility] Red Blood Cell Count 4.75 4.20 - 5.80 Million/u L 01/18/2024 6:22 AM EST [facility] Hemoglobin 14.9 13.2 - 17.1 g/dL 01/18/2024 6:22 AM EST [facility] Hematocrit 43.6 38.5 - 50.0 % 01/18/2024 6:22 AM EST [facility] MCV 91.8 80.0 - 100.0 fL 01/18/2024 6:22 AM EST [facility] MCH 31.4 27.0 - 33.0 pg 01/18/2024 6:22 AM EST [facility] MCHC 34.2 32.0 - 36.0 g/dL 01/18/2024 6:22 AM [employer] [facility] Comment: For adults, a slight decrease in the calculated MCHC value (in the range of 30 to 32 g/dL) is most likely not clinically significant; however, it should be interpreted with caution in correlation with other red cell parameters and the patient's clinical condition. RDW 13.1 11.0 - 15.0 % 01/18/2024 6:22 AM EST [facility] Platelet Count 223 140 - 400 Thousand/ uL 01/18/2024 6:22 AM EST [facility] MPV 10.5 7.5 - 12.5 fL 01/18/2024 6:22 AM EST [facility] Absolute Neutrophils 6,542 1,500 - 7,800 cells/uL 01/18/2024 6:22 AM EST [facility] Absolute Lymphocytes 1,469 850 - 3,900 cells/uL 01/18/2024 6:22 AM EST [facility] Absolute Monocytes 641 200 - 950 cells/uL 01/18/2024 6:22 AM EST [facility] Absolute Eosinophils 160 15 - 500 cells/uL 01/18/2024 6:22 AM EST [facility] Absolute Basophils 89 0 - 200 cells/uL 01/18/2024 6:22 AM EST [facility] Neutrophils 73.5 % 01/18/2024 6:22 AM EST [facility] Lymphocytes 16.5 % 01/18/2024 6:22 AM EST [facility] Monocytes 7.2 % 01/18/2024 6:22 AM EST [facility] Eosinophils 1.8 % 01/18/2024 6:22 AM EST [facility] Basophils 1.0 % 01/18/2024 6:22 AM EST [facility] Blood Structure of peripheral vein / Unknown 01/17/2024 1:57 PM EST 01/18/2024 5:31 AM EST Narrative [facility] - 01/24/2024 1:58 PM EST FASTING:NO us Jadon Dunn MD LAB BLOOD ORDERABLES Final Res ult Performing Organization Address City/[facility] [address]/[facility] Co de Phone Number [facility] [address], [place] [address], [place] [phone] [facility] [employer] [address] [address] * Sedimentation rate, automated (01/17/2024 1:57 PM EST) Sed Rate By Modified Zebergren 11 0 - 20 mm/h 01/18/2024 6:40 AM EST [facility] Blood Structure of peripheral vein / Unknown 01/17/2024 1:57 PM EST 01/18/2024 4:53 AM EST Narrative [facility] - 01/24/2024 1:58 PM EST FASTING:NO us Jadon Dunn MD LAB BLOOD ORDERABLES Final Res ult Performing Organization Address City/[facility] [address]/ZIP Co de Phone Number [facility] [address], [place] [address], [place] [phone] [facility] [address] [address] * C-Reactive Protein (01/17/2024 1:57 PM EST) C-Reactive Protein 4.6 <8.0 mg/L 01/18/2024 5:21 AM [facility] Blood Structure of peripheral vein / Unknown 01/17/2024 1:57 PM EST 01/18/2024 2:54 AM EST Narrative [facility] - 01/24/2024 1:58 PM EST FASTING:NO us Jadon Dunn MD LAB BLOOD ORDERABLES Final Res ult [facility] [address] [facility] 3rd Floor, [place] [address], [place] [phone] [facility] [employer] [address] [place] [address] * Comprehensive Metabolic Panel (01/17/2024 1:57 PM EST) Glucose 127 65 - 139 mg/dL 01/18/2024 9:21 AM [facility] Comment: ? Non-fasting reference interval BUN 17 7 - 25 mg/dL 01/18/2024 9:21 AM [place] Creatinine 0.87 0.70 - 1.28 mg/dL 01/18/2024 9:21 AM [facility] eGFR 90 > OR = 60 mL/min/1. 73m2 01/18/2024 9:21 AM [place] Bun/Creatinine Ratio SEE NOTE: 6 22 (calc) 01/18/2024 9:21 AM [facility] Comment: ?? Not Reported: BUN and Creatinine are within ?? reference range. ? Sodium 145 135 - 146 mmol/L 01/18/2024 9:21 AM [place] Potassium 4.2 3.5 - 5.3 mmol/L 01/18/2024 9:21 AM [place] Chloride 109 98 - 110 mmol/L 01/18/2024 9:21 AM [place] Carbon Dioxide 26 20 - 32 mmol/L 01/18/2024 9:21 AM [place] Calcium 9.5 8.6 - 10.3 mg/dL 01/18/2024 9:21 AM [place] Protein, Total 7.1 6.1 - 8.1 g/dL 01/18/2024 9:21 AM EST [facility] Albumin 4.7 3.6 - 5.1 g/dL 01/18/2024 9:21 AM EST [facility] Globulin 2.4 1.9 - 3.7 g/dL (calc) 01/18/2024 9:21 AM EST [facility] Albumin/Globuli n Ratio 2.0 1.0 - 2.5 (calc) 01/18/2024 9:21 AM EST [facility] Bilirubin, Total 1.0 0.2 - 1.2 mg/dL 01/18/2024 9:21 AM EST [facility] Alkaline Phosphatase 56 35 - 144 U/L 01/18/2024 9:21 AM EST [facility] AST 13 10 - 35 U/L 01/18/2024 9:21 AM EST [facility] ALT 15 9 - 46 U/L 01/18/2024 9:21 AM EST [facility] Blood Structure of peripheral vein / Unknown 01/17/2024 1:57 PM EST 01/18/2024 2:54 AM EST Narrative [facility] - 01/24/2024 1:58 PM EST FASTING:NO Jadon Dunn MD LAB BLOOD ORDERABLES Final Res ult [facility] [address] [facility] 3[address], [place] [address], [facility] [address] [place] [address] * TSH (12/20/2023 3:17 PM EST) TSH 1.930 0.280 - 3.890 uIU/mL 12/20/2023 4:16 PM EST [facility] Blood Structure of peripheral vein / Unknown Venipuncture / Unknown 12/20/2023 3:17 PM EST 12/20/2023 3:40 PM EST Anna Russo MD LAB BLOOD ORDERABLES Final Resu lt [facility] [address] [place] [address], * T4, Free (12/20/2023 3:17 PM EST) Free T4 0.96 0.93 - 1.70 ng/dL 12/20/2023 4:16 PM EST [facility] Comment: Females: (ng/dL) First Trimester ? 0.95-1.58 ng/dL Second Trimester ?0.76-1.24 ng/dL Third Trimester ? 0.70-1.25 ng/dL Dietary supplements containing biotin may interfere in assays and may skew analyte results to be falsely high. ?? For patients receiving the recommended daily doses of biotin, draw samples at least 8 hours following the last biotin supplementation. ?? For patients on keyur-doses of biotin supplements, draw samples at least 72 hours following the last biotin supplementation. Blood Structure of peripheral vein / Unknown Venipuncture / Unknown 12/20/2023 3:17 PM EST 12/20/2023 3:40 PM EST Anna Russo MD LAB BLOOD ORDERABLES Final Resu lt Performing Organization Address [facility] Co de Phone Number [facility] [address] [place] [phone], * Hepatitis Panel, Acute (04/05/2016 11:38 AM EST) Pathologist [facility] Hepatitis A IgM NON-REACT LUCA NON-REACT LUCA [facility] Hepatitis B Surface Antigen NON-REACT LUCA NON-REACT LUCA [facility] Hepatitis B Core Antibody NON-REACT LUCA NON-REACT LUCA [facility] Hepatitis C Antibody NON-REACT LUCA NON-REACT LUCA [facility] Signal To Cut-Off 0.01 <1.00 [facility] 04/05/2016 11:3 8 AM EST 04/05/2016 3:02 PM EST Narrative [facility] - 04/05/2016 7:15 PM EST Report Comments: Received Date: [id number] us Jadon Dunn MD LAB BLOOD ORDERABLES Final Res ult [facility] [address] [place] [address] [address]rd Floor, [place] [address], [place] [phone] * COLONOSCOPY (11/02/2015 11:14 AM EDT) Narrative Procedure Note Jesus Mohamud MD - 11/02/2015 11:14 AM EDT Patient Name: Sean Patel Procedure Date: 11/02/2015 11:14 AM Date of : 1950 Admit Type: Outpatient Age: 65 Room: Room 5 Gender: Male Note Status: Finalized Attending MD: Jesus Mohamud MD Procedure: Colonoscopy Indications: Personal history of colonic polyps Providers: Jesus Mohamud MD (Doctor) Referring MD: Jadon Dunn MD (Referring MD) Requesting Provider: Medicines: None Complications: No immediate complications. Estimated Blood Loss: Estimated blood loss: none. Procedure: Pre-Anesthesia Assessment: - Prior to the procedure, a History and Physical was performed, and patient medications and allergies were reviewed. The patient is competent. The risks andbenefits of the procedure and the sedation options and riskswere discussed with the patient. All questions were answered and informed consent was obtained. Patientidentification and proposed procedure were verified by the physicianin the procedure room. Mental Status Examination: alertand oriented. Airway Examination: normal oropharyngealairway and neck mobility. Respiratory Examination: clear to auscultation. CV Examination: normal. ASA Grade Assessment: II - A patient with mild systemic disease. After reviewing the risks and benefits, the patient was deemed in satisfactory condition to undergo theprocedure. The anesthesia plan was to use no sedation oranesthesia. Immediately prior to administration of medications, the patient was re-assessed for adequacy to receivesedatives. The heart rate, respiratory rate, oxygen saturations, blood pressure, adequacy of pulmonary ventilation, and response to care were monitored throughout theprocedure. The physical status of the patient was re-assessedafter the procedure. After I obtained informed consent, the scope was passed under direct vision. Throughout the procedure, the patient's blood pressure, pulse, and oxygen saturations were monitored continuously. The [id number] was introduced through the anus and advanced to thececum, identified by appendiceal orifice and ileocecal valve.The colonoscopy was performed without difficulty. Thepatient tolerated the procedure well. The quality of the bowel preparation was good. The bowel preparation used was Miralax. Findings: The perianal and digital rectal examinations were normal. Multiple small and large-mouthed diverticula were found in thesigmoid colon, in the descending colon and in the ascending colon. The exam was otherwise without abnormality. Impression: - Diverticulosis in the sigmoid colon, in thedescending colon and in the ascending colon. - The examination was otherwise normal. - No specimens collected. Recommendation: - Return to endoscopist in 5 years. Jesus Mohamud MD 11/02/2015 11:55:22 AM This report has been signed electronically. 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 Expl anation Health Care Proxy 01/16/2024 3:17 PM Health Care Proxy 09/09/2020 1:34 PM VALUES HISTORY Advance Directive 12/26/2019 9:31 AM Heal th Care proxy 11/30/19 * Full Code (Latest Code Status on File) Date Activated Date Inactivated Comments 06/20/2023 12:32 PM 06/21/2023 2:43 PM * Full Code Date Activated Date Inactivated Comments 06/20/2023 12:21 PM 06/20/2023 12:32 PM * Full Code Date Activated Date Inactivated Comments 06/20/2023 10:32 AM 06/20/2023 12:21 PM * Full Code Date Activated Date Inactivated Comments 06/19/2023 10:34 AM 06/19/2023 2:07 PM * Full Code Date Activated Date Inactivated Comments 06/19/2023 10:34 AM 06/19/2023 10:34 AM Healthcare Agents on File Name Relationship Healthcare Agent Relationshi p Communication Tiarra Patel Spouse Health Care Agent Yesika Guo Daughter Alternate Health Care Agent Chase Patel Son Alternate Health Care Agent Care Teams Cuff Cutter Relationship Specialty Start Date End Date Jadon Dunn MD [address] [place] [id number] PCP - General Family Medicine 08/25/16
--- OUTSIDE RECORDS SUMMARY | 2024-03-08 12:53 | XMS_ITS | Encounter Summary ---
Author Organization [facility] Address [address] [place] [address] Care Team Providers Care Security Control Room Officer Name Role Phone Jadon Dunn MD Primary Care Provider Encounter Details Date Type Department Care Team (Late st Contact Info) Description 02/28/2024 Telephone [facility] [address] [place] [phone] Jadon Dunn MD [address] [place] [phone] Social History Tobacco Use Types Packs/Day Years Used Date Smoking Tobacco: Never Smokeless Tobacco: Never Comments:: Alcohol Use Standard Drinks/Week Comments Yes 0 (1 standard drink = 0.6 oz pur e alcohol) holidays [facility] Utilities Answer Date Recorded In the past 12 months has [employer], gas, oil, or water [employer] threatened to shut off services in your [...] encounter Miscellaneous Notes * Telephone Encounter - Emily Becerra - 03/01/2024 3:23 PM EST Patient has called to relay that patient is scheduled for microsurgery next week. She has also requested more pain medications to be sent to the pharmacy as patient still has some but will not be enough to last until surgery date (Monday) Please advise. * Telephone Encounter - ABDOUL Gilman - 02/29/2024 9:29 AM EST The referral was faxed along with the MRI results, demographics information, and med list. I also provided Tiarra(on HIPAA) with the number to Dr. Monsivais's office to call in about 1-2 hours so they can process the referral. The patient is all set. Dr. Lauro Monsivais's fax: [phone] * Telephone Encounter - ABDOUL Gilman - 02/29/2024 9:[address] Dunn's response: Let them know Dr. Jolly office will call and arrange a visit; please put through the necessary referral. Thanks * Telephone Encounter - Emily Becerra - 02/28/2024 1:27 PM EST Patient's has called in. She estates that after discussing with patient, they have decided to go ahead with your advice and follow through with the surgery with the Doctor in [place]. Do you need me to do anything? Please advise. documented in this encounter Plan of Treatment Upcoming Encounters Date Type Department Care Team (Late st Contact Info) Description 04/02/2024 10:45 AM EST Follow-Up [address] Pulmonology [address] [place] [id number] Hardeep Mayers MD [address] [place] [phone] 04/12/2024 3:30 PM EST Follow-Up [facility] [address] [place] [phone] Luz Felix MD [address] [place] [phone] 06/05/2024 1:30 PM EDT Office Visit [facility] [address] [place] [address] Timo Payne MD [address] [place] [phone] 06/19/2024 2:00 PM EDT Follow-Up [facility] [address] [place] [address] [employer] Knife Fish Chopper: Anna Moody MD [address] [place] [phone] 07/16/2024 8:00 AM EDT Appointment [facility] Cardiac Ultrasound [address] [place] [address] 07/16/2024 9:00 AM EDT Follow-Up [facility] 4th floor Cardiology Medicine [address] [place] [address] [employer] Chopper: Iveth Padron 02/10/2025 4:40 PM EST Follow-Up [facility] 4th floor Cardiology Medicine [address] [place] [address] [employer] Fish Chopper: Angely Yancey MD [address] [place] [address] documented as of this encounter Visit Diagnoses Diagnosis Facet arthropathy of spine- Primary Spondylosis of unspecified site without mention of myelopathy Protrusion of lumbar intervertebral disc documented in this encounter Care Teams Security Control Room Officer Relationship Specialty Start Date End Date Jadon Dunn MD [address] [place] [phone] PCP - General Family Medicine 08/25/16 documented as of this encounter
--- OUTSIDE RECORDS SUMMARY | 2024-03-08 12:53 | XMS_ITS | Referral Summary ---
Author Organization [facility] Address [address] [place] [address] Care Team Providers Care Manager Laboratory Name Role Phone Jadon Dunn MD Primary Care Provider [phone] Encounters * This document contains information received from the source organization and may not represent a complete record from that organization. Date Type Department Care Team Description 03/01/2024 myChart Message [address] [phone] Jadon Dunn MD Refill needed on tramadol 03/01/2024 Refill [facility] [address] [place] [phone] Jadon Dunn MD Spinal stenosis, unspecified spinal region (Primary Dx) 03/01/2024 Orders Only [facility] [address] [place] [phone] Jadon Dunn MD 03/01/2024 Telephone [facility]rology [facility] [address] [place] [address] Telephone Intake, Staff PAC Appt Request - Established- Luz Felix MD 02/28/2024 Orders Only [address] [phone] Jadon Dunn MD Spinal stenosis, unspecified spinal region (Primary Dx) 02/28/2024 Telephone [facility] [address] [place] [phone] Jadon Dunn MD 02/22/2024 Documentation [facility] [address] [place] [phone] Jadon Dunn MD 02/20/2024 Telephone [facility] [address] [place] [phone] Jadon Dunn MD 01/29/[address] [phone] Jadon Dunn MD 01/29/[address] [phone] Jadon Dunn MD 01/18/2024 myChart Message [address] [phone] Jadon Dunn MD labs look great 01/16/2024 3:00 PM EST Office Visit [address] [phone] Jadon Dunn MD Acute neuritis (Primary Dx); Alzheimer's disease (HCC); Graves' disease 01/10/[address] [phone] Piedad Smith MA 01/01/2024 Telephone [facility] 4th floor Cardiology Medicine [address] [place] [address] Tax Collector: Angely Yancey MD 01/01/2024 1:40 PM EST Follow-Up [facility] 4th floor Cardiology Medicine [address] [place] [address] Tax Collector: Angely Yancey MD Mixed hyperlipidemia (Primary Dx); S/P TAVR (transcatheter aortic valve replacement); Hypertension 12/26/[address] Cardiology Medicine [address] [place] [address] Tax Collector: Iveth Padron Telephone Intake, Staff PAC Appt Request - Established 12/22/2023 myChart Message [facility] Endocrinology Clinic [address] [place] [address] Tax Collector: Anna Moody MD results 12/22/2023 Orders Only [facility] Endocrinology [facility] [address] [place] [address] Tax Collector: Anna Moody MD 12/20/2023 3:00 PM EST Follow-Up [facility]inology [facility] [address] [place] [address] Tax Collector: Anna Moody MD Graves' disease (Primary Dx) from Last 3 Months Allergies No known active allergies Medications * [...] up to 5 days. 15 tablet 02/21/19 25 025 Discontinued Active Problems Problem Noted Date Diagnosed Date Acute neuritis 01/16/2024 Assessment & Plan (01/16/2024 5:05 PM EST): Differential includes infectious versus secondary to the Tapazole versus referred pain from the lumbar spine. Will obtain labs. Venous duplex in [place] demonstrated no sign of a DVT so [...] Advanced directive is recorded in [facility] Assessment & Plan (07/14/2020 1:39 PM EDT): [...] day. He should schedule follow-up with his ornamenter. Assessment & Plan (06/20/2023 9:34 AM EDT): [...] & Plan (09/04/2019 3:29 PM EDT): PEr Russo; doing well. Assessment & Plan (05/01/2018 3:23 [...] Unsure if this is because of his semi-fci or because of insufficient sleep. Will refer [...] diagnosed with essential tremor years ago by [facility] neurology Assessment & Plan (07/14/2021 3:15 PM [...] had the repeat echo. Will order today. Immunizations Name Administration Dates Next Due COVID-19, Pfizer, mRNA, Biva lent Booster, PF, 30 mcg/0.3 mL dose (for age 12 y and up) 06/21/2022 Covid-19, Moderna, mRNA, Vac cine, PF, 50 mcg/0.5 mL (for age 12 y and up) 10/14/2023,10/30/2022 Covid-19, Pfizer, mRNA, [place] valent, PF 30 mcg/0.3 mL dose (for [...] Vaccine, 23 Valent 04/03/2013 Pneumococcal conjugate PCV20,polysaccharide [id number] conjugate, adjuvant, PF (Prevnar 20) 11/27/2022 RSV, Bivalent, Protein Subun it RSVpreF, Diluent Reconstituted, 0.5 mL, PF 11/10/2022 Tetanus Toxoid, Reduced Diph theria Toxoid, and Acellular Pertussis Vaccine, Adsorbed 06/21/2022,02/22/2012 Zoster Vaccine Recombinant 10/16/2018,06/26/2018 Zoster Vaccine, Live 03/09/2013 Social History Tobacco Use Types Packs/Day Years Used Date Smoking Tobacco: Never Smokeless Tobacco: Never Tobacco Cessation:Counseling Given: Not Answered Comments:: Alcohol Use Standard Drinks/Week Comments Yes 0 (1 standard drink = 0.6 oz pur e alcohol) holidays [facility] Utilities Answer Date Recorded In the past 12 months has e Location Labs, gas, oil, or water [employer] threatened to shut off services in your [...] kg (190 lb 3.2 oz) 01/16/2024 3:00 P M EST Height 177.8 cm (5' 10 ) 01/16/2024 3:00 PM EST Body Mass Index 27.29 01/16/2024 3:00 PM EST Plan of Treatment Upcoming Encounters Date Type Department Care Team (Late st Contact Info) Description 04/02/2024 10:45 AM EST Follow-Up [facility] [place] Pulmon[facility] [address] [address] Hardeep Mayers MD [address] [phone] 04/12/2024 3:30 PM EST Follow-Up [facility] Neurology Clinic [address] [place] [address] Luz Felix MD [address] [place] [address] 06/05/2024 1:30 PM EDT Office Visit [facility] [address] [place] [address] Timo Payne MD [address] [place] [phone] 06/19/2024 2:00 PM EDT Follow-Up [facility] Endocrinology Clinic [address] [place] [address] Tax Collector: Anna Moody MD [address] [place] [address] 07/16/2024 8:00 AM EDT Appointment [facility] Cardiac Ultrasound [address] [place] [phone] 07/16/2024 9:00 AM EDT Follow-Up [facility] 4th floor Cardiology Medicine [address] [place] [address] Tax Collector: Iveth Padron 02/10/2025 4:40 PM EST Follow-Up [facility] 4th floor Cardiology Medicine [address] [place] [address] Tax Collector: Angely Yancey MD [address] [place] [address] Medical Devices Implanted Type Area Veterinarian Epidemiologist Device Identifier Shelf Expiration Date Model / Serial / Lot System Closure And Repair Suture-Mediated Perclose Prostyle - S0 - [id number] Implanted:Qty: 1 on 06/20/2023 by EricTina bailey MD at [facility] Implant Right: Groin [employer] [id number] 03/08/2025 [id number] / 0 / [id number] System Closure And Repair Suture-Mediated Perclose Prostyle - S0 - [id number] Implanted:Qty: 1 on 06/20/2023 by Tina Reyes MD at [facility] Implant Right: Groin [employer] [id number] 03/08/2025 [id number] / 0 / [id number] Device Closure Vascular Plug 6fr Angio-Seal Vip - S0 - [id number] Implanted:Qty: 1 on 06/20/2023 by Tina Reyes MD at [facility] Implant Left: Groin [employer] [id number] 12/23/2023 [id number] / 0 / [id number] 91 Valve Heart Transcatheter With Commander System 26mm Quintana Leah 3 Ultra Resilia - [id number] - [id number] Implanted:Qty: 1 on 06/20/2023 by Tina Reyes MD at [facility] Tissue N/A: Heart [employer] 09/26/2025 [id number] / [id number] / Explanted Type Area Veterinarian Epidemiologist Device Identifier Shelf Expiration Date Model / Serial / Lot Catheter Femoral Insertion [place]-Kumar J-Tip 5fr 90cm - S0 - [id number] Explanted:Qty: 1 on 06/20/2023 by Tina Reyes MD at [facility] Catheter Left: Vein [employer] [id number] 12/25/2024 [id number] / 0 / [id number] Procedures * Due to [place] state law, this organization might not be sharing negative HIV tests. Procedure Name Priority Date/Time Associated Diagnosis Comments MRI LUMBAR SPINE WO CONTRAST Routine 02/25/2024 5:20 PM EST Sciatica of left side IMAGING - SCANNED 02/25/2024 VITAMIN B12 Routine 01/17/2024 1:57 PM EST SEDIMENTATION RATE, AUTOMATED Routine 01/17/2024 1:57 PM EST Acute neuritis [facility], ANTIBODY [id number] Routine 01/17/2024 1:57 PM EST Acute neuritis [...] to Health Maintenance Results * Due to [place] state law, this organization might not be sharing negative HIV tests. * MRI Lumbar Spine without Contrast (02/25/2024 5:20 PM EST) Anatomical Region Laterality Modality Spine, L-spine Magnetic Resonan ce 02/25/2024 5:00 PM EST Impressions 02/27/2024 11:01 AM EST [...] obtain the completed interpretation. ? Workstation ID: [id number] Narrative 02/27/2024 11:01 AM EST INDICATION: Severe [...] of the paraspinal musculature. Resulting Agency Comment [id number] Procedure Note Benjamin Chamorro MD - 02/27/2024 [...] possible to obtain thecompleted interpretation. Workstation ID: [id number] us Jadon Dunn MD IMG MRI PROCEDURES Final Resul t * IMAGING - SCANNED (02/25/2024) Anatomical Region Laterality Modality Other us Onbase Scan [facility] SCANNED PROCEDURES Final Resu lt * Vitamin B12 & Folate (01/17/2024 1:57 PM EST) [facility] Vitamin B12 450 200 - 1,100 pg/mL 01/18/2024 3:52 AM EST [facility] Folate, Serum 18.5 ng/mL 01/18/2024 3:52 AM EST [facility] Comment: ? Reference Range ? Low: ? <3.4 ? Borderline: ?3.4-5.4 ? Normal: ?>5.4 01/17/2024 1:57 PM EST 01/18/2024 2:54 AM EST Narrative [facility] - 01/24/2024 1:58 PM EST FASTING:NO us Jadon Dunn MD LAB BLOOD ORDERABLES Final Res ult [facility] [address] [facility] 3rd Floor, [place] [address], [facility] [address] [place] [address] * Tick-borne disease, antibody (01/17/2024 1:57 PM EST) A. Phagocytophilum IGG <1:64 <1:64 01/24/2024 1:51 PM EST [facility] A. Phagocytophilum IGM <1:20 <1:20 01/24/2024 1:51 PM EST [facility] Interpretation ANTIBODY NOT DETECTED 01/24/2024 1:51 PM EST [facility] Comment See Comments 01/24/2024 1:51 PM EST [facility] Comment: Anaplasma phagocytophilum is the tick-borne agent causing Human Granulocytic Ehrlichiosis (HGE). HGE is distinct and separate from Human Monocytic Ehrlichiosis (HME), caused by Ehrlichia chaffeensis. Serologic cross-reactivity between A. phagocytophilum and E. Chaffeensis is minimal (5-15%). This test was developed and its performance characteristics have been determined by [employer]. It has not been cleared or approved by the U.S. Food and Drug Administration. This assay has been validated pursuant to the CLIA regulations and is used for clinical purposes. WA1 IGG Antibody, IFA <1:256 01/19/2024 6:09 PM EST [facility] Comment: REFERENCE RANGE: ??<1:256 ?INTERPRETIVE CRITERIA: ? <1:256 Antibody not detected ? > or = 1:256 Antibody detected Babesia duncani, also known as WA1, has been associated with symptoms similar to those caused by Babesia microti. Little, if any, cross-reactivity occurs between Babesia microti and WA1. This test was developed and its analytical performance characteristics have been determined by [employer]. It has not been cleared or approved by FDA. This assay has been validated pursuant to the CLIA regulations and is used for clinical purposes. Babesia Microti IgG <1:64 <1:64 titer 01/19/2024 11:31 PM EST [facility] Comment: This test was developed and its analytical performance characteristics have been determined by [employer]. It has not been cleared or approved by the FDA. This assay has been validated pursuant to the CLIA regulations and is used for clinical purposes. Babesia Microti IgM <1:20 <1:20 titer 01/19/2024 11:31 PM EST [facility] Comment: This test was developed and its analytical performance characteristics have been determined by [employer]. It has not been cleared or approved by the FDA. This assay has been validated pursuant to the CLIA regulations and is used for clinical purposes. Interpretation See Comments 01/19/2024 11:31 PM EST [facility] Comment: ANTIBODY NOT DETECTED Elevated antibody levels [...] Screen <0.90 index 01/18/2024 5:27 AM EST [facility] Comment: ? Index ?Interpretation ? ----- ? [...] IGG <1:64 <1:64 01/06 6:[address] [facility] E. Chaffeensis AB IGM <1:20 <1:20 01/22/2024 6:49 AM EST [facility] Interpretation ANTIBODY NOT DETECTED 01/22/2024 6:[address] [facility] Comment See Comments 01/22/2024 6:[address] [facility] Comment: Ehrlichia chaffeensis has been identified as [...] its performance characteristics have been determined by [employer]. It has not been cleared or approved [...] ORDERABLES Final Res ult [facility] [address] [facility] [address], [place] [address], [place] [phone] [facility] [address] [place] [address] [facility] [address] [place] [address] * CBC Auto Differential (01/17/2024 1:57 PM EST) [facility] White Blood Cell Count 8.9 3.8 - 10.8 Thousand/ uL 01/18/2024 6:22 AM EST [facility] Red Blood Cell Count 4.75 4.20 - 5.80 Million/u L 01/18/2024 6:22 AM EST [facility] Hemoglobin 14.9 13.2 - 17.1 g/dL 01/18/2024 6:22 AM EST [facility] Hematocrit 43.6 38.5 - 50.0 % 01/18/2024 6:22 AM EST [facility] MCV 91.8 80.0 - 100.0 fL 01/18/2024 6:22 AM EST [facility] MCH 31.4 27.0 - 33.0 pg 01/18/2024 6:22 AM EST [facility] MCHC 34.2 32.0 - 36.0 g/dL 01/18/2024 6:22 AM [employer] [facility] Comment: For adults, a slight decrease in the calculated MCHC value (in the range of 30 to 32 g/dL) is most likely not clinically significant; however, it should be interpreted with caution in correlation with other red cell parameters and the patient's clinical condition. RDW 13.1 11.0 - 15.0 % 01/18/2024 6:22 AM EST [facility] Platelet Count 223 140 - 400 Thousand/ uL 01/18/2024 6:22 AM EST [facility] [facility] MPV 10.5 7.5 - 12.5 fL 01/18/2024 6:22 AM EST [facility] [facility] Absolute Neutrophils 6,542 1,500 - 7,800 cells/uL 01/18/2024 6:[address] [facility] Absolute Lymphocytes 1,469 850 - 3,900 cells/uL 01/18/2024 6:22 AM [employer] [facility] Monocytes 641 200 - 950 cells/uL 01/18/2024 6:22 AM EST [facility] [facility] Absolute Eosinophils 160 15 - 500 cells/uL 01/18/2024 6:22 AM EST [facility] [facility] Absolute Basophils 89 0 - 200 cells/uL 01/18/2024 6:22 AM EST [facility] [facility] Neutrophils 73.5 % 01/18/2024 6:22 AM EST [facility] Lymphocytes 16.5 % 01/18/2024 6:22 AM EST [facility] Monocytes 7.2 % 01/18/2024 6:22 AM EST [facility] Eosinophils 1.8 % 01/18/2024 6:22 AM EST [facility] Basophils 1.0 % 01/18/2024 6:22 AM EST [facility] Blood Structure of peripheral vein / Unknown 01/17/2024 1:57 PM EST 01/18/2024 5:31 AM EST Narrative [facility] - 01/24/2024 1:58 PM EST FASTING:NO Jadon Dunn MD LAB BLOOD ORDERABLES Final Res ult Performing Organization Address City/[facility]/ZIP Co de Phone Number [facility] [address], [facility] [place] [address], [place] [phone] [facility] [address] [place] [address] * Sedimentation rate, automated (01/17/2024 1:57 PM EST) Sed Rate By Modified Zebergren 11 0 - 20 mm/h 01/18/2024 6:40 AM EST [facility] Blood Structure of peripheral vein / Unknown 01/17/2024 1:57 PM EST 01/18/2024 4:53 AM EST Narrative [facility] - 01/24/2024 1:58 PM EST FASTING:NO us Jadon Dunn MD LAB BLOOD ORDERABLES Final Res ult [facility] [address], [place] [address], [place] [phone] [facility] [address] [place] [address] * C-Reactive Protein (01/17/2024 1:57 PM EST) C-Reactive Protein 4.6 <8.0 mg/L 01/18/2024 5:21 AM EST [facility] Blood Structure of peripheral vein / Unknown 01/17/2024 1:57 PM EST 01/18/2024 2:54 AM EST Narrative [facility] - 01/24/2024 1:58 PM EST FASTING:NO us Jadon Dunn MD LAB BLOOD ORDERABLES Final Res ult [facility] [address] [facility] [address], [place] [address], [place] [phone] [facility] [address] [place] [address] * Comprehensive Metabolic Panel (01/17/2024 1:57 PM EST) Pathologist [facility] Glucose 127 65 - 139 mg/dL 01/18/2024 9:21 AM [employer] Comment: ? Non-fasting reference interval BUN 17 7 - 25 mg/dL 01/18/2024 9:21 AM [employer] Creatinine 0.87 0.70 - 1.28 mg/dL 01/18/2024 9:21 AM [employer] eGFR 90 > OR = 60 mL/min/1. 73m2 01/18/2024 9:21 AM [employer] Bun/Creatinine Ratio SEE NOTE: 6 (calc) 01/18/2024 9:21 AM [employer] Comment: ?? Not Reported: BUN and Creatinine are within ?? reference range. ? Sodium 145 135 - 146 mmol/L 01/18/2024 9:21 AM [employer] Potassium 4.2 3.5 - 5.3 mmol/L 01/18/2024 9:21 AM [employer] Chloride 109 98 - 110 mmol/L 01/18/2024 9:21 AM [employer] Carbon Dioxide 26 20 - 32 mmol/L 01/18/2024 9:21 AM EST [facility] Calcium 9.5 8.6 - 10.3 mg/dL 01/18/2024 9:21 AM EST [facility] Protein, Total 7.1 6.1 - 8.1 g/dL 01/18/2024 9:21 AM EST [facility] Albumin 4.7 3.6 - 5.1 g/dL 01/18/2024 9:21 AM EST [facility] Globulin 2.4 1.9 - 3.7 g/dL (calc) 01/18/2024 9:21 AM EST [facility] Albumin/Globuli n Ratio 2.0 1.0 - 2.5 (calc) 01/18/2024 9:21 AM EST [facility] Bilirubin, Total 1.0 0.2 - 1.2 mg/dL 01/18/2024 9:21 AM EST [facility] Alkaline Phosphatase 56 35 - 144 U/L 01/18/2024 9:21 AM EST [facility] AST 13 10 - 35 U/L 01/18/2024 9:21 AM EST [facility] [facility] ALT 15 9 - 46 U/L 01/18/2024 9:21 AM EST [facility] Blood Structure of peripheral vein / Unknown 01/17/2024 1:57 PM EST 01/18/2024 2:54 AM EST Narrative [facility] - 01/24/2024 1:58 PM EST FASTING:NO us Jadon Dunn MD LAB BLOOD ORDERABLES Final Res ult [facility] [address] [facility] [address], [place] [address], [facility] [facility] [address] [place] [address] * TSH (12/20/2023 3:17 PM EST) TSH 1.930 0.280 - 3.890 uIU/mL 12/20/2023 4:16 PM EST [facility] Blood Structure of peripheral vein / Unknown Venipuncture / Unknown 12/20/2023 3:17 PM EST 12/20/2023 3:40 PM EST Anna Russo MD LAB BLOOD ORDERABLES Final Resu lt Performing Organization Address City/[facility] Co de Phone Number [facility] [address] [place] [address], * T4, Free (12/20/2023 3:17 PM EST) Pathologist [facility] Free T4 0.96 0.93 - 1.70 ng/dL 12/20/2023 4:16 PM EST [email or web address] Comment: Females: (ng/dL) First [...] MD LAB BLOOD ORDERABLES Final Resu lt [facility] [address] [place] [address], [place] * Hepatitis Panel, Acute (04/05/2016 11:38 AM EST) [facility] Hepatitis A IgM NON-REACT LUCA NON-REACT LUCA [facility] Hepatitis B Surface Antigen NON-REACT LUCA NON-REACT LUCA [facility] Hepatitis B Core Antibody NON-REACT LUCA NON-REACT LUCA [facility] Hepatitis C Antibody NON-REACT LUCA NON-REACT LUCA [facility] Signal To Cut-Off 0.01 <1.00 [facility] 04/05/2016 11:3 8 AM EST 04/05/2016 3:02 PM EST Narrative [facility] - 04/05/2016 7:15 PM EST Report Comments: Received Date: [id number] us Jadon Dunn MD LAB BLOOD ORDERABLES Final Res ult [facility] [address], [place] [address], [place] [phone] * COLONOSCOPY (11/02/2015 11:14 AM EDT) Narrative [...] and oxygen saturations were monitored continuously. The [id number] was introduced through the anus and advanced [...] Recently Relevant to Health Maintenance Insurance MEDICARE [facility] Advance Directives Documents on File Type Date Recorded Patient Tar Boiler Expl anation Health Care Proxy 01/16/2024 3:17 [...] Relationship Healthcare Agent Relationshi p Communication Tiarra Jorge Spouse Health Care Agent Yesika Guo Daughter Alternate Health Care Agent Chase Patel Son Alternate Health Care Agent Care Teams Manager Laboratory Relationship Specialty Start Date End Date Jadon Dunn MD [address] [place] [phone] PCP - General Family Medicine 08/25/16
--- OUTSIDE RECORDS SUMMARY | 2024-03-08 12:53 | XMS_ITS | Encounter Summary ---
Author Organization [facility] Address [address] [place] [address] Care Team Providers Care Route Sales Person Name Role Phone Jadon Dunn MD Primary Care Provider Encounter Details Date Type Department Care Team (Late st Contact Info) Description 03/01/2024 myChart Message [facility] [address] [place] [phone] Jadon Dunn MD [address] [place] [address] Refill needed on tramadol Social History Tobacco Use Types Packs/Day Years Used Date Smoking Tobacco: Never Smokeless Tobacco: Never Comments:: Alcohol Use Standard Drinks/Week Comments Yes 0 (1 standard drink = 0.6 oz pur e alcohol) holidays [facility] Utilities Answer Date Recorded In the past 12 months has e [employer], gas, oil, or water [email or web address] threatened to shut off services in your [...] encounter Miscellaneous Notes * Telephone Encounter - Christine Edmonds [place] - 03/04/2024 8:32 AM EST Rx request sent to provider. documented in this encounter Plan of Treatment Upcoming Encounters Date Type Department Care Team (Late st Contact Info) Description 04/02/2024 10:45 AM EST Follow-Up [facility] [address] [place] [facility]mon[facility] [address] [address] Hardeep Mayers MD [address] [address] 04/12/2024 3:30 PM EST Follow-Up [facility] Building Neurology Clinic [address] [place] [address] Luz Felix MD [address] [place] [address] 06/05/2024 1:30 PM EDT Office Visit [facility] B [address] [place] [address] Timo Payne MD [address] [place] [address] 06/19/2024 2:00 PM EDT Follow-Up [facility] Endocrinology Clinic [address] [place] [address] Reconciliation Analyst: Anna Moody MD [address] [place] [address] 07/16/2024 8:00 AM EDT Appointment [facility] Cardiac Ultrasound [address] [place] [address] 07/16/2024 9:00 AM EDT Follow-Up [facility] 4th floor Cardiology Medicine [address] [place] [address] Reconciliation Analyst: Iveth Padron 02/10/2025 4:40 PM EST Follow-Up [facility] 4th floor Cardiology Medicine [address] [place] [address] Reconciliation Analyst: Angely Yancey MD [address] [place] [address] documented as of this encounter Visit Diagnoses Not on filedocumented in this encounter Care Teams Route Sales Person Relationship Specialty Start Date End Date Jadon Dunn MD [address] [place] [address] PCP - General Family Medicine 08/25/16 documented as of this encounter
--- OUTSIDE RECORDS SUMMARY | 2024-03-08 12:53 | XMS_ITS | Encounter Summary ---
Author Organization [facility] Address [address] [place] [address] Care Team Providers Care Pressurised Container Filler Name Role Phone Jadon Dunn MD Primary Care Provider [phone] Encounter Details Date Type Department Care Team (Late st Contact Info) Description 01/18/2024 myCTresatat Message [facility] [address] [place] [phone] Jadon Dunn MD [address] [place] [address] labs look great Social History Tobacco Use Types Packs/Day Years Used Date Smoking Tobacco: Never Smokeless Tobacco: Never Comments:: Alcohol Use Standard Drinks/Week Comments Yes 0 (1 standard drink = 0.6 oz pur e alcohol) holidays [facility] Utilities Answer Date Recorded In the past 12 months has th e [employer], gas, oil, or water [employer] threatened to shut off services in your [...] encounter Miscellaneous Notes * Telephone Encounter - Ivon Urbina MA - 01/24/2024 1:52 PM EST Patient is calling back regarding his labs from 01/15. Pt want to know what would be the next stepsregarding his labs results? Patient say he didn't see the message that you sent over [employer] but he is feeling a little better with the medications documented in this encounter Plan of Treatment Upcoming Encounters Date Type Department Care Team (Late st Contact Info) Description 04/02/2024 10:45 AM EST Follow-Up [facility] 85 [place] Pulmon[facility] [address] [address] Hardeep Mayers MD [address] [address] 04/12/2024 3:30 PM EST Follow-Up [facility] Neurology Clinic [address] [place] [address] Luz Felix MD [address] [place] [address] 06/05/2024 1:30 PM EDT Office Visit [facility] B [address] [place] [address] Timo Payne MD [address] [place] [address] 06/19/2024 2:00 PM EDT Follow-Up [facility] Endocrinology Clinic [address] [place] [address] Milled Lumber Grader: Anna Moody MD [address] [place] [address] 07/16/2024 8:00 AM EDT Appointment [facility] Cardiac Ultrasound [address] [place] [address] 07/16/2024 9:00 AM EDT Follow-Up [facility] 4th floor Cardiology Medicine [address] [place] [address] Milled Lumber Grader: Iveth Padron 02/10/2025 4:40 PM EST Follow-Up [facility] 4th floor Cardiology Medicine [address] [place] [address] Milled Lumber Grader: Angely Yancey MD [address] [place] [address] documented as of this encounter Visit Diagnoses Not on filedocumented in this encounter Care Teams Pressurised Container Filler Relationship Specialty Start Date End Date Jadon Dunn MD [address] [place] [address] PCP - General Family Medicine 08/25/16 documented as of this encounter
--- OUTSIDE RECORDS SUMMARY | 2024-03-08 12:53 | XMS_ITS | Encounter Summary ---
Author Organization [facility] Address [address] [place] [address] Care Team Providers Care Sewer Line Photo Inspector Name Role Phone Jadon Dunn MD Primary Care Provider [phone] Encounter Details Date Type Department Care Team (Latest Contact Info) Description 03/09/2023 [employer] Message [facility] Interventional Lab [address] [place] [phone] Mychart, Generic Provider [address] [place], [place] [phone] Pre-procedure instructions/ Coronary angiography Social History Tobacco Use Types Packs/Day Years [...] Info) Description 04/02/2024 10:45 AM EST Follow-Up [facility] 85 [place] Pulmonology [address] [address] Hardeep Mayers MD [address] [address] 04/12/2024 3:30 PM EST Follow-Up [facility] Neurology Clinic 55 [place] [address] Luz Felix MD [address] [place] [address] 06/05/2024 1:30 PM EDT Office Visit [facility] B [address] [place] [address] Timo Payne MD [address] [place] [address] 06/19/2024 2:00 PM EDT Follow-Up [facility] Endocrinology Clinic 55 [place] [address] Construction Engineer: Anna Moody MD [address] [place] [address] 07/16/2024 8:00 AM EDT Appointment [facility] Cardiac Ultrasound [address] [place] [address] 07/16/2024 9:00 AM EDT Follow-Up [facility] 4th floor Cardiology Medicine [address] [place] [address] Construction Engineer: Iveth Padron 02/10/2025 4:40 PM EST Follow-Up [facility] 4th floor Cardiology Medicine [address] [place] [address] Construction Engineer: Angely Yancey MD [address] [place] [phone] documented as of this encounter Visit Diagnoses Not on filedocumented in this encounter Care Teams Sewer Line Photo Inspector Relationship Specialty Start Date End Date Jadon Dunn MD [address] [place] [address] PCP - General Family Medicine 08/25/16 documented as of this encounter
--- OUTSIDE RECORDS SUMMARY | 2024-03-08 12:53 | XMS_ITS | Clinical Summary ---
Author Organization [facility] Address [address] [place] [address] Care Team Providers Care Private Security Guard Name Role Phone Unavailable Primary Care Provider Unavailabl e Allergies No known active allergies Medications * This document contains information received from the source organization and may not represent a complete record from that organization. No known medications Active Problems Problem Noted Date Diagnosed Date Obstructive sleep apnea syndrome 07/18/2013 HTN (hypertension) 07/18/2013 Overview (06/13/2014): Social History Tobacco Use Types Packs/Day Years Used Date Smoking Tobacco: Never Smokeless Tobacco: Never Alcohol Use Standard Drinks/Week Comments Not Asked 0 (1 standard drink = 0.6 oz pur e alcohol) Sex and Gender Information Value Date Recorded Sex Assigned at Not on file Legal Sex Male 10:25 PM EDT Gender Identity Not on file Sexual Orientation Not on file Last Filed Vital Signs Vital Sign Reading Time Taken Comments Blood Pressure 124/88 07/18/2013 9:41 AM EDT Pulse 66 07/18/2013 9:41 AM EDT Temperature - - Respiratory Rate - - Oxygen Saturation - - Inhaled Oxygen Concentration - - Weight 102 kg (224 lb) 07/18/2013 9:41 AM EDT Height 180.3 cm (5' 11 ) 07/18/2013 9:41 AM EDT Body Mass Index 31.24 07/18/2013 9:41 AM EDT Plan of Treatment Health Maintenance Due Date Last Done Comments Hepatitis C Screening 1950 DTaP/Tdap/Td (1 - Tdap) 02/15/1966 Pneumococcal 50+ years (1 of 1 - PCV) 02/15/1998 Zoster (Shingrix) (1 of 2) 02/15/1998 RSV (1 - 1-dose 75+ series) 02/15/2023 COVID-19 Vaccine (2023-2 5 season) 2023 Influenza (#1) 2023 HPV Vaccine Aged Out No longer eligi ble based on patient's age to complete this topic Hep A Aged Out No longer eligi ble based on patient's age to complete this topic Hep B Aged Out No longer eligi ble based on patient's age to complete this topic Hib Aged Out No longer eligi ble based on patient's age to complete this topic Meningococcal ACWY Aged Out No longer eligible based on patient's age to complete this topic Zoster (Zostavax) Discontinued Insurance * Guarantor: RYLIE PATEL Account Type Relation to Patient Date of Phone Billing Address Personal/Family [address] [place] [address] MEDICARE PART B [facility] MEDICARE-SUPPLEMENTAL
--- OUTSIDE RECORDS SUMMARY | 2024-03-08 12:53 | XMS_ITS | Encounter Summary ---
Author Organization [facility] Address [address] [place] [address] Care Team Providers Care Kitchen Supervisor Name Role Phone Jadon Dunn MD Primary Care Provider [phone] Reason for Visit * Reason Comments Med Refill Encounter Details Date Type Department Care Team (Late st Contact Info) Description 03/01/2024 Refill [facility] [address] [place] [phone] Jadon Dunn MD [address] [place] [phone] Spinal stenosis, unspecified spinal region (Primary Dx) Social History Tobacco Use Types Packs/Day Years Used Date Smoking Tobacco: Never Smokeless Tobacco: Never Comments:: Alcohol Use Standard Drinks/Week Comments Yes 0 (1 standard drink = 0.6 oz pur e alcohol) holidays [facility] Utilities Answer Date Recorded In the past 12 months has [employer], gas, oil, or water company threatened [...] Info) Description 04/02/2024 10:45 AM EST Follow-Up [address] Pulmonology [address] [address] Hardeep Mayers MD [address] [address] 04/12/2024 3:30 PM EST Follow-Up [facility] Neurology Clinic [address] [place] [address] Luz Felix MD [address] [place] [address] 06/05/2024 1:30 PM EDT Office Visit [facility] B [address] [place] [address] Timo Payne MD [address] [place] [address] 06/19/2024 2:00 PM EDT Follow-Up [facility] Endocrinology Clinic [address] [place] [address] Pedicab Driver: Anna Moody MD [address] [place] [address] 07/16/2024 8:00 AM EDT Appointment [facility] Cardiac Ultrasound [address] [place] [address] 07/16/2024 9:00 AM EDT Follow-Up [facility] 4th floor Cardiology Medicine [address] [place] [address] Pedicab Driver: Iveth Padron 02/10/2025 4:40 PM EST Follow-Up [address] floor Cardiology Medicine [address] [place] [address] Pedicab Driver: Angely Yancey MD [address] [place] [address] documented as of this encounter Visit Diagnoses Diagnosis Spinal stenosis, unspecified spinal region- Primary documented in this encounter Care Teams Kitchen Supervisor Relationship Specialty Start Date End Date Jadon Dunn MD [address] [place] [address] PCP - General Family Medicine 08/25/16 documented as of this encounter
--- NOTE | 2024-03-08 12:55 | HO.SPINEOV ---
Vital Signs 03/08/24 13:01 Height 5 ft 10 in Weight 181 lb BMI 26.0 Intake Visit Reasons: Left low back pain. Intake Note: Mr. Patel is here today c/o left sided low back pain. Conductor/Engineer Required: No Physical Exam Vital Signs: BMI result Body Mass Index 26.0 Assessment & Plan Assessment & Plan (1) Lumbosacral radiculopathy at L5: Code(s): M54.17 - Radiculopathy, lumbosacral region Category: Medical (2) Lumbar stenosis with neurogenic claudication: Code(s): M48.062 - Spinal stenosis, lumbar region with neurogenic claudication Category: Medical Plan Dear colleague Thank you for referring Sean Patel to the office today with a chief complaint of severe left leg pain. HPI: This 74-year-old previously very active male developed severe pain radiating down his left leg to the outside of his ankle around [facility]. The pain is debilitating and not improving despite anti-inflammatories extra-strength Tylenol and tramadol. In addition to the pain there is hip weakness. The pain is constantly present. The best position is laying flat. He denies numbness bowel urinary problems. The pain prevented him from doing physical therapy. PMH: Mitral valve replacement 2023. His last cardiology visit in the fall reported no issues., hypertension, Graves disease, early stage Alzheimer's Medications: Tramadol, extra-strength Tylenol, rosuvastatin, sertraline, diclofenac, methimazole Allergies: NKDA Social history: , nonsmoker. Review of systems: No chest pain or shortness of breath. Physical Exam: Pleasant male who was in obvious discomfort. He is standing deviated towards the right side. Straight leg raise is positive with radiating pain down his left leg. There is iliopsoas weakness 3/5 on the left. Sensory exam is intact. Normal reflexes Radiological Studies: MRI done at [place] on 02/25/2024 shows a severe left L5 foraminal stenosis with possible small intraforaminal disc herniation. In addition there is severe L3-4 central spinal stenosis and a right L2-3 disc herniation and stenosis. Impression/Plan: This patient is suffering from severe left L5 radiculopathy due to severe L5 neuroforaminal stenosis and possible intraforaminal disc herniation. I recommended a left L5 foraminotomy to decompress the L5 nerve root but also a left L3-4 hemilaminotomy. The right L2-3 disc herniation is of no significance clinically. He is in so much pain and therefore I scheduled him early for 03/20/2024. He will get preoperative clearance from his primary care physician and education administrator. Thank you for allowing me to participate in your patients care. total time spent was 50 minutes in counseling ,coordination of plan, personal review of imaging, surgical decision making and subsequent plan Lauro Jolly MD, PhD Spine Fellowship Trained Neurosurgeon Director, [facility] Coding Level of Care Code New Pt Level 4 (04247) Diagnoses Lumbosacral radiculopathy at L5 M54.17 Lumbar stenosis with neurogenic claudication M48.062
[2024-03-08 13:01] VITALS: BMI 26.0
== END 2024-03-08 13:45 | disposition home or self-care (01) ==
PROVIDERS: PCP Family Medicine; Referring Provider Family Medicine; Visit Provider Neurological Surgery
DX: M54.17 Radiculopathy, lumbosacral region (principal); M48.062 Spinal stenosis, lumbar region with neurogenic claudication
CPT/HCPCS: 99204

== ENCOUNTER → 2024-03-08 12:35 | Outpatient (BNVA) | payer MEDICARE, SELFPAY | PROVIDERS: PCP Family Medicine; Referring Provider Family Medicine; Visit Provider Neurological Surgery | DX: M54.17 Radiculopathy, lumbosacral region (principal); M48.062 Spinal stenosis, lumbar region with neurogenic claudication | CPT/HCPCS: 99202 ==

== ENCOUNTER 2024-03-20 06:23 | Day surgery (SDC) | payer MEDICARE, SELFPAY ==
[2024-03-15 09:56] VITALS: BMI 24.8
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
--- NOTE | ~2024-03-20 | FL_ITS ---
EXAMINATION: FL GUIDANCE ONLY HISTORY: l3-l5 left laminotomy COMPARISON: None available. TECHNIQUE: Fluoroscopy time: 9.6 seconds. Cumulative Dose: 8.1036 mGy. DAP: 2.9988 mGym2 Images: 1. FINDINGS: A single fluoroscopic spot film of the lumbar spine in the lateral projection demonstrates a probe directed toward the L5-S1 intervertebral disc space from a posterior approach. FL/FL guidance in OR IMPRESSION: Fluoroscopy during procedure. Please see procedure report for additional information. Electronically signed by: Christopher Higgins MD 03/20/2024 09:00 AM ANGY
--- OUTSIDE RECORDS SUMMARY | 2024-03-20 06:25 | XMS_ITS | Referral Summary ---
Author Organization [facility] Address [address] [place] [address] Care Team Providers Care Mobile Home Set Up Person Name Role Phone Jadon Dunn MD Primary Care Provider Encounters * This document contains information received from the source organization and may not represent a complete record from that organization. Date Type Department Care Team Description 03/09/[address] [phone] Jadon Dunn MD 03/01/2024 myChart Message [address] [phone] Jadon Dunn MD Refill needed on tramadol 03/01/[address] [phone] Jadon Dunn MD Spinal stenosis, unspecified spinal region (Primary Dx) 03/01/2024 Orders Only [address] [phone] Jadon Dunn MD 03/01/2024 Telephone [facility] [address] [place] [address] [phone] Telephone Intake, Staff PAC Appt Request - Established- Luz Felix MD 02/28/2024 Orders Only [facility] [address] [place] [phone] Jadon Dunn MD Spinal stenosis, unspecified spinal region (Primary Dx) 02/28/[address] [phone] Jadon Dunn MD 02/22/[address] [phone] Jadon Dnun MD 02/20/[address] [phone] Jadon Dunn MD 01/29/[address] [address] Jadon Dunn MD 01/29/[address] [address] Jadon Dunn MD 01/18/2024 myChart Message [address] [phone] Jadon Dunn MD labs look great 01/16/2024 3:00 PM EST Office Visit [address] [phone] Jadon Dunn MD Acute neuritis (Primary Dx); Alzheimer's disease (HCC); Graves' disease 01/10/[address] [phone] Piedad Smith MA 01/01/2024 Telephone [facility] 4th floor Cardiology Medicine [address] [place] [address] Coding Quality Analyst: Angely Yancey MD 01/01/2024 1:40 PM EST Follow-Up [address] Cardiology Medicine [address] [place] [phone] Coding Quality Analyst: Angely Yancey MD Mixed hyperlipidemia (Primary Dx); S/P TAVR (transcatheter aortic valve replacement); Hypertension 12/26/[address] Cardiology Medicine [address] [place] [address] Coding Quality Analyst: Iveth Padron Telephone Intake, Staff PAC Appt Request - Established 12/22/2023 myChart Message [facility] [address] [place] [phone] Coding Quality Analyst: Anna Moody MD results 12/22/2023 Orders Only [facility] [address] [place] [address] Coding Quality Analyst: Anna Moody MD 12/20/2023 3:00 PM EST Follow-Up [facility] [address] [place] [phone] Coding Quality Analyst: Anna Moody MD Graves' disease (Primary Dx) [...] 03/01/19 25 Active traMADoL (ULTRAM) 50 mg tablet Take 1 tablet (50 mg total) by mouth every 8 hours as needed for pain for up to 5 days. 15 tablet 02/21/19 25 025 Discontinued traMADoL (ULTRAM) 50 mg tabletIndication s:Spinal stenosis, unspecified spinal region Take 1 tablet (50 mg total) by mouth every 8 hours as needed for pain for up to 5 days. 15 tablet 03/04/19 25 025 Active Problems Problem Noted Date Diagnosed Date Acute neuritis 01/16/2024 Assessment & Plan (01/16/2024 5:05 PM EST): Differential includes infectious versus secondary to the Tapazole versus referred pain from the lumbar spine. Will obtain labs. Venous duplex in [place] demonstrated no sign of a DVT so [...] maintenance issues. Advanced directive is recorded in [facility] Assessment & Plan (07/14/2020 1:39 PM EDT): [...] day. He should schedule follow-up with his acute care clinical nurse specialist. Assessment & Plan (06/20/2023 9:34 AM EDT): [...] Plan (07/14/2020 1:39 PM EDT): Per Dr. Rusos; ? If needs BMD scan; clinically unstable [...] Unsure if this is because of his semi-group home or because of insufficient sleep. Will [...] diagnosed with essential tremor years ago by [facility] neurology Assessment & Plan (07/14/2021 3:15 PM [...] (05/01/2018 3:22 PM EDT): We reviewed Dr. Lxu's evaluation. I let him listen to his [...] y and up) 10/14/2023,10/30/2022 Covid-19, Pfizer, mRNA, Mccormick valent, PF 30 mcg/0.3 mL dose (for [...] Vaccine, 23 Valent 04/03/2013 Pneumococcal conjugate PCV20,polysaccharide [id number] conjugate, adjuvant, PF (Prevnar 20) 11/27/2022 RSV, [...] = 0.6 oz pur e alcohol) holidays [facility] Utilities Answer Date Recorded In the past 12 months has [employer], [employer], oil, or water [email or web address] threatened to shut off services in your [...] Info) Description 04/02/2024 10:45 AM EST Follow-Up [facility] [address] [facility] [facility] [address] [place] [address] Hardeep Mayers MD [address] [address] 04/12/2024 3:30 PM EST Follow-Up [facility] [address] [place] [address] Luz Felix MD [address] [place] [phone] 06/05/2024 1:30 PM EDT Office Visit [facility] [address] [place] [address] Timo Payne MD [address] [place] [phone] 06/19/2024 2:00 PM EDT Follow-Up [facility] [address] [place] [phone] Coding Quality Analyst: Anna Moody MD [address] [place] [phone] 07/16/2024 8:00 AM EDT Appointment [facility] Cardiac Ultrasound [address] [place] [phone] 07/16/2024 9:00 AM EDT Follow-Up [facility] 4th floor Cardiology Medicine [address] [place] [phone] Coding Quality Analyst: Iveth Padron 02/10/2025 4:40 PM EST Follow-Up [facility] 4th floor Cardiology Medicine [address] [place] [address] Coding Quality Analyst: Angely Yancey MD [address] [place] [phone] Medical Devices Implanted Type Area Wood Mechanist Device Identifier Shelf Expiration Date Model / Serial / Lot System Closure And Repair Suture-Mediated Perclose Prostyle - S0 - [id number] Implanted:Qty: 1 on 06/20/2023 by Tina Reyes MD at [facility] Implant Right: Groin [employer] [id number] 03/08/2025 [id number] / 0 / [id number] System Closure And Repair Suture-Mediated Perclose Prostyle - S0 - [id number] Implanted:Qty: 1 on 06/20/2023 by Tina Reyes MD at [facility] Implant Right: Groin [employer] [id number] 03/08/2025 [id number] / 0 / [id number] Device Closure Vascular Plug 6fr Angio-Seal Vip - S0 - [id number] Implanted:Qty: 1 on 06/20/2023 by Tina Reyes MD at [facility] Implant Left: Groin [employer] [id number] 12/23/2023 [id number] / 0 / [id number] 91 Valve Heart Transcatheter With Commander System 26mm Quintana Leah 3 Ultra Resilia - [id number] - [id number] Implanted:Qty: 1 on 06/20/2023 by Tina Reyes MD at [facility] Tissue N/A: Heart [employer] 09/26/2025 [id number] / [id number] / Explanted Type Area Wood Mechanist Device Identifier Shelf Expiration Date Model / Serial / Lot Catheter Femoral Insertion Oldhams-Kumar J-Tip 5fr 90cm - S0 - [id number] Explanted:Qty: 1 on 06/20/2023 by Tina Reyes MD at [facility] Catheter Left: Vein [employer] [id number] 12/25/2024 [id number] / 0 / [id number] Procedures * Due to [place] state law, this organization might not be sharing negative HIV tests. Procedure Name Priority Date/Time Associated Diagnosis Comments MRI LUMBAR SPINE WO CONTRAST Routine 02/25/2024 5:20 PM EST Sciatica of left side IMAGING - SCANNED 02/25/2024 VITAMIN B12 Routine 01/17/2024 1:57 PM EST SEDIMENTATION RATE, AUTOMATED Routine 01/17/2024 1:57 PM EST Acute neuritis [facility], ANTIBODY [id number] Routine 01/17/2024 1:57 PM EST Acute neuritis [...] to Health Maintenance Results * Due to [place] state law, this organization might not be [...] obtain the completed interpretation. ? Workstation ID: [id number] Narrative 02/27/2024 11:01 AM EST INDICATION: Severe [...] of the paraspinal musculature. Resulting Agency Comment [id number] Procedure Note Benjamin Chamorro MD - 02/27/2024 [...] possible to obtain thecompleted interpretation. Workstation ID: [id number] us Jadon Dunn MD IMG MRI PROCEDURES Final Resul t * IMAGING - SCANNED (02/25/2024) Anatomical Region Laterality Modality Other us Onbase Scan Radha SCANNED PROCEDURES Final Resu lt * Vitamin B12 & Folate (01/17/2024 1:57 PM EST) [facility] Vitamin B12 450 200 - 1,100 pg/mL 01/18/2024 3:52 AM EST [employer] Folate, Serum 18.5 ng/mL 01/18/2024 3:52 AM EST [employer] Comment: ? Reference Range ? Low: ? <3.4 ? Borderline: ?3.4-5.4 ? Normal: ?>5.4 01/17/2024 1:57 PM EST 01/18/2024 2:54 AM EST [facility] - 01/24/2024 1:58 PM EST FASTING:NO us Jadon Dunn MD LAB BLOOD ORDERABLES Final Res ult [facility] [address], [place] [address], [facility] [address] [place] [address] * Tick-borne disease, antibody (01/17/2024 1:57 PM EST) A. Phagocytophilum IGG <1:64 <1:64 01/24/2024 1:51 PM EST [facility] A. Phagocytophilum IGM <1:20 <1:20 01/24/2024 1:51 PM EST [facility] Interpretation ANTIBODY NOT DETECTED 01/24/2024 1:51 PM EST [facility] Comment See Comments 01/24/2024 1:51 PM EST [facility] Comment: Anaplasma phagocytophilum is the tick-borne agent causing Human Granulocytic Ehrlichiosis (HGE). HGE is distinct and separate from Human Monocytic Ehrlichiosis (HME), caused by Ehrlichia chaffeensis. Serologic cross-reactivity between A. phagocytophilum and E. Chaffeensis is minimal (5-15%). This test was developed and its performance characteristics have been determined by [employer]. It has not been cleared or approved by the U.S. Food and Drug Administration. This assay has been validated pursuant to the CLIA regulations and is used for clinical purposes. WA1 IGG Antibody, IFA <1:256 01/19/2024 6:09 PM EST [facility] Comment: REFERENCE RANGE: ??<1:256 ?INTERPRETIVE CRITERIA: ? <1:256 Antibody not detected ? > or = 1:256 Antibody detected Babesia duncani, also known as WA1, has been associated with symptoms similar to those caused by Babesia microti. Little, if any, cross-reactivity occurs between Babesia microti and WA1. This test was developed and its analytical performance characteristics have been determined by [employer]. It has not been cleared or approved by FDA. This assay has been validated pursuant to the CLIA regulations and is used for clinical purposes. Babesia Microti IgG <1:64 <1:64 titer 01/19/2024 11:31 PM EST [employer] Comment: This test was developed and its analytical performance characteristics have been determined by [employer]. It has not been cleared or approved by the FDA. This assay has been validated pursuant to the CLIA regulations and is used for clinical purposes. Babesia Microti IgM <1:20 <1:20 titer 01/19/2024 11:31 PM EST [employer] Comment: This test was developed and its analytical performance characteristics have been determined by [employer]. It has not been cleared or approved by the FDA. This assay has been validated pursuant to the CLIA regulations and is used for clinical purposes. Interpretation See Comments 01/19/2024 11:31 PM EST [employer] Comment: ANTIBODY NOT DETECTED Elevated antibody levels [...] Screen <0.90 index 01/18/2024 5:27 AM EST [employer] Comment: ? Index ?Interpretation ? ----- ? [...] AB IGG <1:64 <1:64 01/06 6:49 AM [employer] [facility] E. Chaffeensis AB IGM <1:20 <1:20 01/22/2024 6:49 AM [employer] [facility] Interpretation ANTIBODY NOT DETECTED 01/22/2024 6:49 AM [employer] [facility] Comment See Comments 01/22/2024 6:49 AM [employer] [facility] Comment: Ehrlichia chaffeensis has been identified as [...] its performance characteristics have been determined by [employer]. It has not been cleared or approved by the U.S. Food and Drug Administration. This assay has been validated pursuant to the CLIA regulations and is used for clinical purposes. Blood Structure of peripheral vein / Unknown 01/17/2024 1:57 PM EST 01/18/2024 1:30 AM EST [facility] - 01/24/2024 1:58 PM EST FASTING:NO us Jadon Dunn MD LAB BLOOD ORDERABLES Final Res ult [facility] [address], [place] [address], [place] [phone] [facility] [address] [place] [address] [facility] [address] [place] [address] * CBC Auto Differential (01/17/2024 1:57 PM EST) White Blood Cell Count 8.9 3.8 - 10.8 Thousand/ uL 01/18/2024 6:22 AM EST [employer] Red Blood Cell Count 4.75 4.20 - 5.80 Million/u L 01/18/2024 6:22 AM EST [employer] [facility] Hemoglobin 14.9 13.2 - 17.1 g/dL 01/18/2024 6:22 AM EST [facility] Hematocrit 43.6 38.5 - 50.0 % 01/18/2024 6:22 AM EST [facility] MCV 91.8 80.0 - 100.0 fL 01/18/2024 6:22 AM EST [facility] MCH 31.4 27.0 - 33.0 pg 01/18/2024 6:22 AM EST [facility] MCHC 34.2 32.0 - 36.0 g/dL 01/18/2024 6:22 AM EST [employer] Comment: For adults, a slight decrease in the calculated MCHC value (in the range of 30 to 32 g/dL) is most likely not clinically significant; however, it should be interpreted with caution in correlation with other red cell parameters and the patient's clinical condition. RDW 13.1 11.0 - 15.0 % 01/18/2024 6:22 AM EST [employer] [facility] Platelet Count 223 140 - 400 Thousand/ uL 01/18/2024 6:22 AM EST [employer] [facility] MPV 10.5 7.5 - 12.5 fL 01/18/2024 6:22 AM EST [employer] [facility] Absolute Neutrophils 6,542 1,500 - 7,800 cells/uL 01/18/2024 6:22 AM EST [facility] Absolute Lymphocytes 1,469 850 - 3,900 cells/uL 01/18/2024 6:22 AM EST [facility] Absolute Monocytes 641 200 - 950 cells/uL 01/18/2024 6:22 AM EST [facility] Absolute Eosinophils 160 15 - 500 cells/uL 01/18/2024 6:22 AM EST [facility] Absolute Basophils 89 0 - 200 cells/uL 01/18/2024 6:22 AM EST [facility] Neutrophils 73.5 % 01/18/2024 6:22 AM EST [facility] Lymphocytes 16.5 % 01/18/2024 6:22 AM EST [facility] Monocytes 7.2 % 01/18/2024 6:22 AM EST [facility] Eosinophils 1.8 % 01/18/2024 6:22 AM EST [facility] Basophils 1.0 % 01/18/2024 6:22 AM EST [facility] Blood Structure of peripheral vein / Unknown 01/17/2024 1:57 PM EST 01/18/2024 5:31 AM EST Narrative [facility] - 01/24/2024 1:58 PM EST FASTING:NO us Jadon Dunn MD LAB BLOOD ORDERABLES Final Res ult [facility] [address], [place] [address], [facility] [address] [place] [address] * Sedimentation rate, automated (01/17/2024 1:57 PM EST) Sed Rate By Modified Rileyren 11 0 - 20 mm/h 01/18/2024 6:40 AM EST [facility] Blood Structure of peripheral vein / Unknown 01/17/2024 1:57 PM EST 01/18/2024 4:53 AM EST Narrative [facility] - 01/24/2024 1:58 PM EST FASTING:NO us Jadon Dunn MD LAB BLOOD ORDERABLES Final Res ult Performing Organization Address City/[facility]/ZIP Co de Phone Number [facility] [address], [facility] [place] [address], [place] [phone] [facility] [address] [place] [address] * C-Reactive Protein (01/17/2024 1:57 PM EST) Pathologist [facility] C-Reactive Protein 4.6 <8.0 mg/L 01/18/2024 5:21 AM [employer] Blood Structure of peripheral vein / Unknown 01/17/2024 1:57 PM EST 01/18/2024 2:54 AM EST [facility] - 01/24/2024 1:58 PM EST FASTING:NO us Jadon Dunn MD LAB BLOOD ORDERABLES Final Res ult Performing Organization Address City/[facility]/ZIP Co de Phone Number [facility] [address], [facility] [place] [address], [place] [phone] [facility] [address] [place] [address] * Comprehensive Metabolic Panel (01/17/2024 1:57 PM EST) Pathologist [facility] Glucose 127 65 - 139 mg/dL 01/18/2024 9:21 AM [employer] Comment: ? Non-fasting reference interval BUN 17 7 - 25 mg/dL 01/18/2024 9:21 AM [employer] Creatinine 0.87 0.70 - 1.28 mg/dL 01/18/2024 9:21 AM [employer] eGFR 90 > OR = 60 mL/min/1. 73m2 01/18/2024 9:21 AM [employer] Bun/Creatinine Ratio SEE NOTE: (calc) 01/18/2024 9:21 AM [employer] Comment: ?? Not Reported: BUN and Creatinine are within ?? reference range. ? Sodium 145 135 - 146 mmol/L 01/18/2024 9:21 AM [employer] Potassium 4.2 3.5 - 5.3 mmol/L 01/18/2024 9:21 AM EST [facility] Chloride 109 98 - 110 mmol/L 01/18/2024 9:21 AM EST [facility] Carbon Dioxide 26 20 - 32 mmol/L 01/18/2024 9:21 AM EST [facility] Calcium 9.5 8.6 - 10.3 mg/dL 01/18/2024 9:21 AM EST [facility] Protein, Total 7.1 6.1 - 8.1 g/dL 01/18/2024 9:21 AM EST [facility] Albumin 4.7 3.6 - 5.1 g/dL 01/18/2024 9:21 AM EST [facility] Globulin 2.4 1.9 - 3.7 g/dL (calc) 01/18/2024 9:21 AM EST [facility] Albumin/Globuli n Ratio 2.0 1.0 - 2.5 (calc) 01/18/2024 9:21 AM [facility] Bilirubin, Total 1.0 0.2 - 1.2 mg/dL 01/18/2024 9:21 AM [employer] Alkaline Phosphatase 56 35 - 144 U/L 01/18/2024 9:21 AM EST [facility] AST 13 10 - 35 U/L 01/18/2024 9:21 AM EST [facility] ALT 15 9 - 46 U/L 01/18/2024 9:21 AM [facility] Blood Structure of peripheral vein / Unknown 01/17/2024 1:57 PM EST 01/18/2024 2:54 AM EST Narrative [facility] - 01/24/2024 1:58 PM EST FASTING:NO us Jadon Dunn MD LAB BLOOD ORDERABLES Final Res ult [facility] [address], [place] [address], [place] [phone] [facility] [address] [place] [address] * TSH (12/20/2023 3:17 PM EST) TSH 1.930 0.280 - 3.890 uIU/mL 12/20/2023 4:16 PM EST [facility] Blood Structure of peripheral vein / Unknown Venipuncture / Unknown 12/20/2023 3:17 PM EST 12/20/2023 3:40 PM EST Anna Russo MD LAB BLOOD ORDERABLES Final Resu lt Performing Organization Address [facility] Co de Phone Number [facility] [address] [place] [address], [place] * T4, Free (12/20/2023 3:17 PM EST) Free T4 0.96 0.93 - 1.70 ng/dL 12/20/2023 4:16 PM EST [facility] [facility] Comment: Females: (ng/dL) First [...] ORDERABLES Final Resu lt Performing Organization Address [facility] Co de Phone Number [facility] [employer] [facility] [address] [place] [address], [place] * Hepatitis Panel, Acute (04/05/2016 11:38 AM EST) Pathologist [facility] Hepatitis A IgM NON-REACT LUCA NON-REACT LUCA [facility] Hepatitis B Surface Antigen NON-REACT LUCA NON-REACT LUCA [facility] Hepatitis B Core Antibody NON-REACT LUCA NON-REACT LUCA [facility] Hepatitis C Antibody NON-REACT LUCA NON-REACT LUCA [facility] Signal To Cut-Off 0.01 <1.00 [facility] 04/05/2016 11:3 8 AM EST 04/05/2016 3:02 PM EST Narrative [facility] - 04/05/2016 7:15 PM EST Report Comments: Received Date: [id number] us Jadon Dunn MD LAB BLOOD ORDERABLES Final Res ult [employer] [address], [facility] [place] [address], * COLONOSCOPY (11/02/2015 11:14 AM EDT) Narrative [...] and oxygen saturations were monitored continuously. The [id number] was introduced through the anus and advanced [...] Recently Relevant to Health Maintenance Insurance MEDICARE [facility] Advance Directives Documents on File Type Date Recorded Patient Brake Specialist Expl anation Health Care Proxy 01/16/2024 3:17 [...] Son Alternate Health Care Agent Care Teams Mobile Home Set Up Person Relationship Specialty Start Date End Date Jadon Dunn MD [address] [place] [phone] PCP - General Family Medicine 08/25/16
--- OUTSIDE RECORDS SUMMARY | 2024-03-20 06:25 | XMS_ITS | Clinical Summary ---
Author Organization [facility] Address [address] [place] [address] Care Team Providers Care Boat Engine Mechanic Name Role Phone Jadon Dunn MD Primary Care Provider Allergies No known active allergies Medications * [...] maintenance issues. Advanced directive is recorded in psychiatric Assessment & Plan (07/14/2020 1:39 PM EDT): [...] day. He should schedule follow-up with his textile stylist. 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 Will refer [...] LFTs 04/05/2016 09/26/2017 Tremor of both hands 05/13/201401/25/ 023 Assessment & Plan (07/27/2022 2:47 PM [...] diagnosed with essential tremor years ago by [facility] Assessment & Plan (07/14/2021 3:15 PM [...] Type Department Care Team Description 03/09/[address] [address] Jadon Dunn MD 03/01/2024 myChart Message [address] [address] Jadon Dunn MD Refill needed on tramadol 03/01/[address] [address] Jadon Dunn MD Spinal stenosis, unspecified spinal region (Primary Dx) 03/01/2024 Orders Only [facility] [address] [place] [phone] Jadon Dunn MD 03/01/2024 Telephone [facility] [address] [place] [address] [phone] Telephone Intake, Staff PAC Appt Request - Established- Luz Felix MD 02/28/2024 Orders Only [address] [address] Jadon Dunn MD Spinal stenosis, unspecified spinal region (Primary Dx) 02/28/[address] [address] Jadon Dunn MD 02/22/[address] [address] Jadon Dunn MD 02/20/[address] [address] Jadon Dunn MD 01/29/[address] [address] Jadon Dunn MD 01/29/[address] [address] Jadon Dunn MD 01/18/2024 myChart Message [address] [address] Jadon Dunn MD labs look great 01/16/2024 3:00 PM EST Office Visit [facility] [address] [place] [address] Jadon Dunn MD Acute neuritis (Primary Dx); Alzheimer's disease (HCC); Graves' disease 01/10/2024 Telephone [facility] [address] [place] [address] Piedad Smith MA 01/01/2024 1:40 PM EST Follow-Up [facility] 4th floor Cardiology Medicine [address] [place] [address] Hand Compositor: Angely Yancey MD Mixed hyperlipidemia (Primary Dx); S/P TAVR (transcatheter aortic valve replacement); Hypertension 01/01/[address] floor Cardiology Medicine [address] [place] [address] Hand Compositor: Angely Yancey MD 12/26/[address] floor Cardiology Medicine [address] [place] [address] Hand Compositor: Iveth Padron Telephone Intake, Staff PAC Appt Request - Established 12/22/2023 myChart Message [facility]ology [facility] [address] [place] [address] Hand Compositor: Anna Moody MD results 12/22/2023 Orders Only [facility] [address] [place] [address] Hand Compositor: Anna Moody MD 12/20/2023 3:00 PM EST Follow-Up [facility] [address] [place] [address] Hand Compositor: Anna Moody MD Graves' disease (Primary Dx) from Last 3 Months Immunizations Name Administration Dates Next Due COVID-19, Pfizer, mRNA, Biva lent Booster, PF, 30 mcg/0.3 mL dose (for age 12 y and up) 06/21/2022 Covid-19, Moderna, mRNA, Vac cine, PF, 50 mcg/0.5 mL (for age 12 y and up) 10/14/2023,10/30/2022 Covid-19, Pfizer, mRNA, Jackson valent, PF 30 mcg/0.3 mL dose (for [...] Vaccine, 23 Valent 04/03/2013 Pneumococcal conjugate PCV20,polysaccharide CRQ225 conjugate, adjuvant, PF (Prevnar 20) 11/27/2022 RSV, [...] = 0.6 oz pur e alcohol) holidays [facility] Utilities Answer Date Recorded In the [...] Follow-Up [facility] [address] [place] [facility] [address] [address] Hardeep Mayers MD [address] [address] 04/12/2024 3:30 PM EST Follow-Up [facility] [address] [place] [address] Luz Felix MD [address] [place] [address] 06/05/2024 1:30 PM EDT Office Visit [facility] [address] [place] [address] Timo Payne MD [address] [place] [address] 06/19/2024 2:00 PM EDT Follow-Up [facility] Endocrinology Clinic [address] [place] [address] Hand Compositor: Anna Moody MD [address] [place] [address] 07/16/2024 8:00 AM EDT Appointment [facility] Cardiac Ultrasound [address] [place] [address] 07/16/2024 9:00 AM EDT Follow-Up [facility] 4th floor Cardiology Medicine [address] [place] [address] Hand Compositor: Iveth Padron 02/10/2025 4:40 PM EST Follow-Up [facility] 4th floor Cardiology Medicine [address] [place] [address] Hand Compositor: Angely Yancey MD [address] [place] [address] Health Maintenance Due Date Last Done Comments Alcohol/Substance Use Screening 02/07/2024 Fall Risk Screening 02/07/2024 09/04/2019 Basic Metabolic Panel 01/16/2025 01/17/2024 , 06/21/2023, 06/20/2023, Additional history exists DTaP,Tdap,and Td Vaccines (4 - Td or Tdap) 06/21/2032 06/21/2022, 02/22/2012, 12/04/1992 Tobacco Screening 02/06/2042 01/16/2024 Hepatitis C Screening Completed 04/05/2016 Zoster Vaccines Completed 10/16/2018, 06/07, 03/09/2013 Colon Cancer Screening Discontinued Colonoscopy Discontinued 05/10/2022, 0405/2022, 11/02/2015, Additional history exists RSV Vaccine (60+ [...] Sigmoidoscopy Discontinued Medical Devices Implanted Type Area Drafting Instructor Device Identifier Shelf Expiration Date Model / Serial / Lot System Closure And Repair Suture-Mediated Perclose Prostyle - S0 - [id number] Implanted:Qty: 1 on 06/20/2023 by Tina Reyes MD at [facility] Implant Right: Groin [employer] [id number] 03/08/2025 [id number] / 0 / [id number] System Closure And Repair Suture-Mediated Perclose Prostyle - S0 - [id number] Implanted:Qty: 1 on 06/20/2023 by Tina Reyes MD at [facility] Implant Right: Groin [employer] [id number] 03/08/2025 [id number] / 0 / [id number] Device Closure Vascular Plug 6fr Angio-Seal Vip - S0 - [id number] Implanted:Qty: 1 on 06/20/2023 by Tina Reyes MD at [facility] Implant Left: Groin [employer] [id number] 12/23/2023 [id number] / 0 / [id number] 91 Valve Heart Transcatheter With Commander System 26mm Quintana Leah 3 Ultra Resilia - [id number] - [id number] Implanted:Qty: 1 on 06/20/2023 by Tina Reyes MD at [facility] Tissue N/A: Heart [employer] 09/26/2025 [id number] / [id number] / Explanted Type Area Drafting Instructor Device Identifier Shelf Expiration Date Model / Serial / Lot Catheter Femoral Insertion [place] J-Tip 5fr 90cm - S0 - [id number] Explanted:Qty: 1 on 06/20/2023 by Tina Reyes MD at [facility] Catheter Left: Vein [employer] [id number] 12/25/2024 [id number] / 0 / [id number] Procedures * Due to [place] state law, this organization might not be sharing negative HIV tests. Procedure Name Priority Date/Time Associated Diagnosis Comments MRI LUMBAR SPINE WO CONTRAST Routine 02/25/2024 5:20 PM EST Sciatica of left side IMAGING - SCANNED 02/25/2024 VITAMIN B12 Routine 01/17/2024 1:57 PM EST SEDIMENTATION RATE, AUTOMATED Routine 01/17/2024 1:57 PM EST Acute neuritis [facility], ANTIBODY [id number] Routine 01/17/2024 1:57 PM EST Acute neuritis [...] to Health Maintenance Results * Due to [place] state law, this organization might not be [...] obtain the completed interpretation. ? Workstation ID: [id number] Narrative 02/27/2024 11:01 AM EST INDICATION: Severe [...] of the paraspinal musculature. Resulting Agency Comment [id number] Procedure Note Benjamin Chamorro MD - 02/27/2024 [...] possible to obtain thecompleted interpretation. Workstation ID: [id number] us Jadon Dunn MD IMG MRI PROCEDURES Final Resul t * IMAGING - SCANNED (02/25/2024) Anatomical Region Laterality Modality Other us Onbase Scan Radha SCANNED PROCEDURES Final Resu lt * Vitamin B12 & Folate (01/17/2024 1:57 PM EST) [facility] Vitamin B12 450 200 - 1,100 pg/mL 01/18/2024 3:52 AM EST [facility] Folate, Serum 18.5 ng/mL 01/18/2024 3:52 AM EST [facility] Comment: ? Reference Range ? Low: ? <3.4 ? Borderline: ?3.4-5.4 ? Normal: ?>5.4 01/17/2024 1:57 PM EST 01/18/2024 2:54 AM EST Narrative [facility] - 01/24/2024 1:58 PM EST FASTING:NO us Jadon Dunn MD LAB BLOOD ORDERABLES Final Res ult [facility] [address] [facility] 3rd Floor, [place] [address], [place] [phone] [employer] [address] [address] * Tick-borne disease, antibody (01/17/2024 1:57 PM EST) A. Phagocytophilum IGG <1:64 <1:64 01/24/2024 1:51 PM EST [employer] [facility] A. Phagocytophilum IGM <1:20 <1:20 01/24/2024 1:51 PM EST [employer] [facility] Interpretation ANTIBODY NOT DETECTED 01/24/2024 1:51 PM EST [facility] Comment See Comments 01/24/2024 1:51 PM EST [facility] Comment: Anaplasma phagocytophilum is the tick-borne agent causing Human Granulocytic Ehrlichiosis (HGE). HGE is distinct and separate from Human Monocytic Ehrlichiosis (HME), caused by Ehrlichia chaffeensis. Serologic cross-reactivity between A. phagocytophilum and E. Chaffeensis is minimal (5-15%). This test was developed and its performance characteristics have been determined by [facility]. It has not been cleared or approved by the U.S. Food and Drug Administration. This assay has been validated pursuant to the CLIA regulations and is used for clinical purposes. WA1 IGG Antibody, IFA <1:256 01/19/2024 6:09 PM EST [facility] Comment: REFERENCE RANGE: ??<1:256 ?INTERPRETIVE CRITERIA: ? <1:256 Antibody not detected ? > or = 1:256 Antibody detected Babesia duncani, also known as WA1, has been associated with symptoms similar to those caused by Babesia microti. Little, if any, cross-reactivity occurs between Babesia microti and WA1. This test was developed and its analytical performance characteristics have been determined by [facility]. It has not been cleared or approved by FDA. This assay has been validated pursuant to the CLIA regulations and is used for clinical purposes. Babesia Microti IgG <1:64 <1:64 titer 01/19/2024 11:31 PM EST [facility] Comment: This test was developed and its analytical performance characteristics have been determined by [facility]. It has not been cleared or approved by the FDA. This assay has been validated pursuant to the CLIA regulations and is used for clinical purposes. Babesia Microti IgM <1:20 <1:20 titer 01/19/2024 11:31 PM EST [facility] Comment: This test was developed and its analytical performance characteristics have been determined by [facility]. It has not been cleared or approved by the FDA. This assay has been validated pursuant to the CLIA regulations and is used for clinical purposes. Interpretation See Comments 01/19/2024 11:31 PM EST [facility] Comment: ANTIBODY NOT DETECTED Elevated antibody levels [...] Screen <0.90 index 01/18/2024 5:27 AM EST [employer] [facility] Comment: ? Index ?Interpretation ? ----- ? [...] IGG <1:64 <1:64 01/06 6:49 AM EST [employer] [facility] E. Chaffeensis AB IGM <1:20 <1:20 01/22/2024 6:49 AM EST [employer] [facility] Interpretation ANTIBODY NOT DETECTED 01/22/2024 6:49 AM EST [employer] [facility] Comment See Comments 01/22/2024 6:49 AM EST [employer] [facility] Comment: Ehrlichia chaffeensis has been identified [...] its performance characteristics have been determined by [facility]. It has not been cleared or approved [...] ORDERABLES Final Res ult [facility] [address] [facility] 3rd Floor, [place] [address], [place] [phone] [employer] [address] [address] [facility] [address] [place] [address] * CBC Auto Differential (01/17/2024 1:57 PM EST) [facility] White Blood Cell Count 8.9 3.8 - 10.8 Thousand/ uL 01/18/2024 6:22 AM EST [employer] [facility] Red Blood Cell Count 4.75 4.20 - 5.80 Million/u L 01/18/2024 6:22 AM EST [employer] [facility] Hemoglobin 14.9 13.2 - 17.1 g/dL 01/18/2024 6:22 AM EST [employer] [facility] Hematocrit 43.6 38.5 - 50.0 % 01/18/2024 6:22 AM EST [employer] [facility] MCV 91.8 80.0 - 100.0 fL 01/18/2024 6:22 AM EST [employer] [facility] MCH 31.4 27.0 - 33.0 pg 01/18/2024 6:22 AM EST [employer] [facility] MCHC 34.2 32.0 - 36.0 g/dL 01/18/2024 6:22 AM EST [employer] [facility] Comment: For adults, a slight decrease in the calculated MCHC value (in the range of 30 to 32 g/dL) is most likely not clinically significant; however, it should be interpreted with caution in correlation with other red cell parameters and the patient's clinical condition. RDW 13.1 11.0 - 15.0 % 01/18/2024 6:22 AM EST [employer] [facility] Platelet Count 223 140 - 400 Thousand/ uL 01/18/2024 6:22 AM EST [employer] [facility] MPV 10.5 7.5 - 12.5 fL 01/18/2024 6:22 AM EST [employer] [facility] Absolute Neutrophils 6,542 1,500 - 7,800 cells/uL 01/18/2024 6:22 AM EST [employer] [facility] Absolute Lymphocytes 1,469 850 - 3,900 cells/uL 01/18/2024 6:22 AM EST [employer] [facility] Absolute Monocytes 641 200 - 950 cells/uL 01/18/2024 6:22 AM EST [facility] Absolute Eosinophils 160 15 - 500 cells/uL 01/18/2024 6:22 AM EST [facility] Absolute Basophils 89 0 - 200 cells/uL 01/18/2024 6:22 AM EST [facility] Neutrophils 73.5 % 01/18/2024 6:22 AM EST [facility] Lymphocytes 16.5 % 01/18/2024 6:22 AM EST [facility] Monocytes 7.2 % 01/18/2024 6:22 AM EST [facility] Eosinophils 1.8 % 01/18/2024 6:22 AM EST [facility] Basophils 1.0 % 01/18/2024 6:22 AM EST [facility] Blood Structure of peripheral vein / Unknown 01/17/2024 1:57 PM EST 01/18/2024 5:31 AM EST Narrative [facility] - 01/24/2024 1:58 PM EST FASTING:NO us Jadon Dunn MD LAB BLOOD ORDERABLES Final Res ult Performing Organization Address City/[facility]/ZIP Co de Phone Number [facility] [address], [place] [address], [place] [phone] [employer] [address] [address] * Sedimentation rate, automated (01/17/2024 1:57 PM EST) Sed Rate By Modified Zebergren 11 0 - 20 mm/h 01/18/2024 6:40 AM EST [employer] [facility] Blood Structure of peripheral vein / Unknown 01/17/2024 1:57 PM EST 01/18/2024 4:53 AM EST Narrative [facility] - 01/24/2024 1:58 PM EST FASTING:NO us Jadon Dunn MD LAB BLOOD ORDERABLES Final Res ult Performing Organization Address City/[facility]/ZIP Co de Phone Number [facility] [address], [place] [address], [place] [phone] [employer] [address] [address] * C-Reactive Protein (01/17/2024 1:57 PM EST) Pathologist [facility] C-Reactive Protein 4.6 <8.0 mg/L 01/18/2024 5:21 AM [employer] Blood Structure of peripheral vein / Unknown 01/17/2024 1:57 PM EST 01/18/2024 2:54 AM EST Narrative [facility] - 01/24/2024 1:58 PM EST FASTING:NO us Jadon Dunn MD LAB BLOOD ORDERABLES Final Res ult [facility] [address] [facility] 3rd Floor, [place] [address], [facility] [address] [place] [address] * Comprehensive Metabolic Panel (01/17/2024 1:57 PM EST) Pathologist [facility] Glucose 127 65 - 139 mg/dL 01/18/2024 9:21 AM [employer] Comment: ? Non-fasting reference interval BUN 17 7 - 25 mg/dL 01/18/2024 9:21 AM [employer] Creatinine 0.87 0.70 - 1.28 mg/dL 01/18/2024 9:21 AM [employer] eGFR 90 > OR = 60 mL/min/1. 73m2 01/18/2024 9:21 AM [employer] Bun/Creatinine Ratio SEE NOTE: 22 (calc) 01/18/2024 9:21 AM [employer] Comment: ?? Not Reported: BUN and Creatinine are within ?? reference range. ? Sodium 145 135 - 146 mmol/L 01/18/2024 9:21 AM [employer] Potassium 4.2 3.5 - 5.3 mmol/L 01/18/2024 9:21 AM [employer] Chloride 109 98 - 110 mmol/L 01/18/2024 9:21 AM [employer] Carbon Dioxide 26 20 - 32 mmol/L 01/18/2024 9:21 AM [employer] Calcium 9.5 8.6 - 10.3 mg/dL 01/18/2024 9:21 AM EST [employer] [facility] Protein, Total 7.1 6.1 - 8.1 g/dL 01/18/2024 9:21 AM EST [employer] [facility] Albumin 4.7 3.6 - 5.1 g/dL 01/18/2024 9:21 AM EST [employer] [facility] Globulin 2.4 1.9 - 3.7 g/dL (calc) 01/18/2024 9:21 AM EST [employer] [facility] Albumin/Globuli n Ratio 2.0 1.0 - 2.5 (calc) 01/18/2024 9:21 AM EST [employer] [facility] Bilirubin, Total 1.0 0.2 - 1.2 mg/dL 01/18/2024 9:21 AM EST [employer] [facility] Alkaline Phosphatase 56 35 - 144 U/L 01/18/2024 9:21 AM EST [employer] [facility] AST 13 10 - 35 U/L 01/18/2024 9:21 AM EST [employer] [facility] ALT 15 9 - 46 U/L 01/18/2024 9:21 AM EST [employer] [facility] Blood Structure of peripheral vein / Unknown 01/17/2024 1:57 PM EST 01/18/2024 2:54 AM EST Narrative [facility] - 01/24/2024 1:58 PM EST FASTING:NO us Jadon Dunn MD LAB BLOOD ORDERABLES Final Res ult [facility] [address] [facility] 3rd Floor, [place] [address], [employer] [address] [place] [address] * TSH (12/20/2023 3:17 PM EST) TSH 1.930 0.280 - 3.890 uIU/mL 12/20/2023 4:16 PM EST [facility] Blood Structure of peripheral vein / Unknown Venipuncture / Unknown 12/20/2023 3:17 PM EST 12/20/2023 3:40 PM EST Anna Russo MD LAB BLOOD ORDERABLES Final Resu lt Performing Organization Address [facility] Co de Phone Number [facility] [address] [place] [address], [place] * T4, Free (12/20/2023 3:17 PM EST) Free T4 0.96 0.93 - 1.70 ng/dL 12/20/2023 4:16 PM EST [facility] Comment: Females: (ng/dL) First [...] ORDERABLES Final Resu lt Performing Organization Address City/[facility] Co de Phone Number [facility] [address] [place] [address], [place] * Hepatitis Panel, Acute (04/05/2016 11:38 AM EST) Pathologist [facility] Hepatitis A IgM NON-REACT LUCA NON-REACT LUCA [employer] [facility] Hepatitis B Surface Antigen NON-REACT LUCA NON-REACT LUCA [employer] [facility] Hepatitis B Core Antibody NON-REACT LUCA NON-REACT LUCA [employer] [facility] Hepatitis C Antibody NON-REACT LUCA NON-REACT LUCA [employer] [facility] Signal To Cut-Off 0.01 <1.00 Results [facility] 04/05/2016 11:3 8 AM EST 04/05/2016 3:02 PM EST Narrative [facility] - 04/05/2016 7:15 PM EST Report Comments: Received Date: [id number] us Jadon Dunn MD LAB BLOOD ORDERABLES Final Res ult [facility] [address], [place] [address], * COLONOSCOPY (11/02/2015 11:14 AM EDT) Narrative Procedure Note Jesus Mohamud MD - 11/02/2015 11:14 AM EDT Patient Name: Sean Mejiaivero Procedure Date: 11/02/2015 11:14 AM Date of [...] and oxygen saturations were monitored continuously. 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
--- OUTSIDE RECORDS SUMMARY | 2024-03-20 06:25 | XMS_ITS | Clinical Summary ---
Author Organization [facility] Address [address] [place] [address] Care Team Providers Care Franchise Sales Manager Name Role Phone Unavailable Primary Care Provider [...] Date of Phone Billing Address Personal/Family [address] [place] [address] MEDICARE PART B [facility] MEDICARE-SUPPLEMENTAL
--- OUTSIDE RECORDS SUMMARY | 2024-03-20 06:26 | XMS_ITS | Encounter Summary ---
Author Organization [facility] Address [address] [place] [address] Care Team Providers Care Digital Media Sales Consultant Name Role Phone Jadon Dunn MD Primary Care Provider [phone] Encounter Details Date Type Department Care Team (Late st Contact Info) Description 02/28/2024 Telephone [facility] Family Practice [address] [place] [phone] Jadon Dunn MD [address] [place] [phone] Social History Tobacco Use Types Packs/Day Years Used Date Smoking Tobacco: Never Smokeless Tobacco: Never Comments:: Alcohol Use Standard Drinks/Week Comments Yes 0 (1 standard drink = 0.6 oz pur e alcohol) holidays [facility] Utilities Answer Date Recorded In the past 12 months has [employer], gas, oil, or water [employer] threatened to shut off services in your [...] is all set. Dr. Lauro Monsivais's fax: [phone] * Telephone Encounter - ABDOUL Gilman - [...] with the surgery with the Doctor in [place]. Do you need me to do anything? Please advise. documented in this encounter Plan of Treatment Upcoming Encounters Date Type Department Care Team (Late st Contact Info) Description 04/02/2024 10:45 AM EST Follow-Up [address] Pulmonology [address] [place] [address] Hardeep Mayers MD [address] [place] [address] 04/12/2024 3:30 PM EST Follow-Up [facility] [address] [place] [address] Luz Felix MD [address] [place] [address] 06/05/2024 1:30 PM EDT Office Visit [facility] [address] [place] [address] Timo Payne MD [address] [place] [address] 06/19/2024 2:00 PM EDT Follow-Up [facility] Endocrinology Clinic [address] [place] [address] Vocational Nurse: Anna Moody MD [address] [place] [address] 07/16/2024 8:00 AM EDT Appointment [facility] Cardiac Ultrasound [address] [place] [address] 07/16/2024 9:00 AM EDT Follow-Up [facility] 4th floor Cardiology Medicine [address] [place] [address] Vocational Nurse: Iveth Padron 02/10/2025 4:40 PM EST Follow-Up [facility] 4th floor Cardiology Medicine [address] [place] [address] Vocational Nurse: Angely Yancey MD [address] [place] [address] documented as of this encounter Visit Diagnoses Diagnosis Facet arthropathy of spine- Primary 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
--- OUTSIDE RECORDS SUMMARY | 2024-03-20 06:26 | XMS_ITS | Encounter Summary ---
Author Organization [facility] Address [address] [place] [address] Care Team Providers Care Pilot Plant Supervisor Name Role Phone Jadon Dunn MD Primary Care Provider [phone] Encounter Details Date Type Department Care Team (Late st Contact Info) Description 02/22/2024 Documentation [facility] Family Practice [address] [place] [phone] Jadon Dunn MD [address] [place] [address] Social History Tobacco Use Types Packs/Day Years Used Date Smoking Tobacco: Never Smokeless Tobacco: Never Comments:: Alcohol Use Standard Drinks/Week Comments Yes 0 (1 standard drink = 0.6 oz pur e alcohol) holidays [facility] Utilities Answer Date Recorded In the past 12 months has [employer], gas, oil, or water [employer] threatened to shut off services in your [...] Info) Description 04/02/2024 10:45 AM EST Follow-Up [facility] 85 [place] [facility] 85 [facility] [address] [place] [address] Hardeep Mayers MD [address] [address] 04/12/2024 3:30 PM EST Follow-Up [facility] Neurology Clinic [address] [place] [address] Luz Felix MD [address] [place] [address] 06/05/2024 1:30 PM EDT Office Visit [facility] B [address] [place] [address] Timo Payne MD [address] [place] [address] 06/19/2024 2:00 PM EDT Follow-Up [facility] Endocrinology Clinic 55 [place] [address] Assistant Corporate Secretary: Anna Moody MD [address] [place] [address] 07/16/2024 8:00 AM EDT Appointment [facility] Cardiac Ultrasound [address] [place] [address] 07/16/2024 9:00 AM EDT Follow-Up [facility] 4th floor Cardiology Medicine [address] [place] [address] Assistant Corporate Secretary: Iveth Padron 02/10/2025 4:40 PM EST Follow-Up [facility] 4th floor Cardiology Medicine [address] [place] [address] Assistant Corporate Secretary: Angely Yancey MD [address] [place] [address] Scheduled Orders Name Type Priority Associated Diagnoses Orde r Schedule XR Lumbar Spine 2 or 3 Views Imaging Routine Sciatica of left side Expected: 02/22/2024, Expires: 04/23/2025 documented as of this encounter Visit Diagnoses Diagnosis Sciatica of left side- Primary documented in this encounter Care Teams Pilot Plant Supervisor Relationship Specialty Start Date End Date Jadon Dunn MD 4 [place] [address] PCP - General Family Medicine 08/25/16 documented as of this encounter
--- OUTSIDE RECORDS SUMMARY | 2024-03-20 06:26 | XMS_ITS | Clinical Summary ---
Author Organization [facility] Address 1 [place] [address] Care Team Providers Care Tobacco Drier Operator Name Role Phone Unavailable Primary Care Provider Unavailabl e Social History Tobacco Use Types Packs/Day Years Used Date Smoking Tobacco: Never Assessed Sex and Gender Information Value Date Recorded Sex Assigned at Not on file Legal Sex Male 8:57 PM EST Gender Identity Not on file Sexual Orientation Not on file Plan of Treatment Health Maintenance Due Date Last Done Comments Colorectal Cancer: COLONOSCO PY Screening every 10 yrs (or Modifier) 1950 Depression: Screening Annual ly using PHQ-2/9 in Adults 18 yrs or above (or HM Modifier)([facility]) 02/15/1966 Hepatitis C Virus Infection in Adolescents and Adults: Screening (or Modifier) ([facility]) 02/15/1966 SDOH Screening Reminder: Ingrid eric for all adults ([facility]) 02/15/1966 Tobacco Smoking Cessation: i n Adults excluding Women: Behavioral and Pharmacotherapy Interventions ([facility]) 02/15/1966 DTaP/Tdap/Td Vaccines ([facility]) (1 - Tdap) 02/15/1967 Lipid Screening: Every 5 yrs for Men aged 35+ (or HM Modifier) ([facility]) 1984 Colorectal Cancer Screening 45 -75 Yrs (or HM Modifier ) 02/15/1993 Colorectal Cancer: FLEXIBLE SIGMOIDOSCOPY Screening every 5 yrs 02/15/1993 Colorectal Cancer: Fecal Imm unochemical Test (FIT) Annually [facility] 02/15/1993 Colorectal Cancer: High-sens itivity gFOBT Screening Annually [facility] 02/15/1993 Colorectal Cancer: Stool Col oguard Screening every 3 yrs 02/15/1993 Colorectal Cancer:CT Colonography Screening every 5 yr s 02/15/1993 Zoster/Shingles Vaccine Seri es Screening: Adults aged 18+ yrs (or HM Modifiers)([facility]) (1 of 2) 02/15/1998 Pneumococcal Vaccination Scr eening: Patients 65+ yrs of age ([facility]) (1 of 1 - PCV) 02/15/2013 RSV Vaccines (1 - 1-dose 75+ series) 02/15/2023 Flu Vaccination: Ages 65+: Y early High Dose Recommended (or Modifier)([facility]) 09/07/2023 COVID-19 Vaccine Screening: Initial Series and Booster Status ([facility]) (2023- season) 2023 [employer] Devices Not on file Insurance [place] [address]
--- OUTSIDE RECORDS SUMMARY | 2024-03-20 06:26 | XMS_ITS | Encounter Summary ---
Author Organization [facility] Address [address] [place] [address] Care Team Providers Care Regulator Operator Name Role Phone Jadon Dunn MD Primary Care Provider [phone] Encounter Details Date Type Department Care Team (Late Contact Info) Description 07/03/2021 myChart Message [facility] [address] [place] [address] Mychart, Generic Provider [address] [place], [place] [phone] Follow up appointment requested Social History Tobacco [...] Description 04/02/2024 10:45 AM EST Follow-Up [facility] 85 [place] [facility] [address] [address] Hardeep Mayers MD [address] [address] 04/12/2024 3:30 PM EST Follow-Up [facility] Neurology Clinic 55 [place] [address] Luz Felix MD 26 [place] [address] 06/05/2024 1:30 PM EDT Office Visit [facility] B [address] [place] [address] Timo Payne MD [address] [place] [address] 06/19/2024 2:00 PM EDT Follow-Up [facility] Endocrinology Clinic 55 [place] [address] Service Inspector: Anna Moody MD [address] [place] [address] 07/16/2024 8:00 AM EDT Appointment [facility] Cardiac Ultrasound [address] [place] [address] 07/16/2024 9:00 AM EDT Follow-Up [facility] 4th floor Cardiology Medicine [address] [place] [address] Service Inspector: Iveth Padron 02/10/2025 4:40 PM EST Follow-Up [facility] 4th floor Cardiology Medicine [address] [place] [address] Service Inspector: Angely Yancey MD [address] [place] [address] documented as of this encounter Visit Diagnoses Not on filedocumented in this encounter Care Teams Regulator Operator Relationship Specialty Start Date End Date Jadon Dunn MD [address] [place], [place] [phone] PCP - General Family Medicine 08/25/16 documented as of this encounter
--- OUTSIDE RECORDS SUMMARY | 2024-03-20 06:26 | XMS_ITS | Encounter Summary ---
Author Organization [facility] Address [address] [place] [address] Care Team Providers Care Fiberglass Laminator Name Role Phone Jadon Dunn MD Primary Care Provider [phone] Reason for Referral * Surgical (Routine) - Authorized Specialty Diagnoses / Procedures Referred By Contac t Referred To Contact Neurosurgery Diagnoses Spinal stenosis, unspecified spinal region Jadon Dunn MD [address] [place] [address] Phone: tel: fax: Lauro Jolly MD [address] [place] [address] Phone: tel: fax: Referral ID Status Reason Start Date Expiration Date Visits Requested Visits Authorized [id number] Authorized Specialty Services Required 02/28/2024 08/29/2025 6 6 Encounter Details Date Type Department Care Team (Late st Contact Info) Description 02/28/2024 Orders Only [facility] [address] [place] [phone] Jadon Dunn MD [address] [place] [address] [phone] Spinal stenosis, unspecified spinal region (Primary Dx) Social History Tobacco Use Types Packs/Day Years Used Date Smoking Tobacco: Never Smokeless Tobacco: Never Comments:: Alcohol Use Standard Drinks/Week Comments Yes 0 (1 standard drink = 0.6 oz pur e alcohol) holidays [facility] Utilities Answer Date Recorded In the [...] Info) Description 04/02/2024 10:45 AM EST Follow-Up [facility] 85 [place] Pulmonology [address] [address] Hardeep Mayers MD [address] [address] 04/12/2024 3:30 PM EST Follow-Up [facility] Neurology Clinic [address] [place] [address] Luz Felix MD 26 [place] [address] 06/05/2024 1:30 PM EDT Office Visit [facility] B [address] [place] [address] Timo Payne MD [address] [place] [address] 06/19/2024 2:00 PM EDT Follow-Up [facility] Endocrinology Clinic 55 [place] [address] Farmworker Dairy: Anna Moody MD [address] [place] [address] 07/16/2024 8:00 AM EDT Appointment [facility] Cardiac Ultrasound [address] [place] [address] 07/16/2024 9:00 AM EDT Follow-Up [facility] 4th floor Cardiology Medicine [address] [place] [address] Farmworker Dairy: Iveth Padron 02/10/2025 4:40 PM EST Follow-Up [facility] 4th floor Cardiology Medicine [address] [place] [address] Farmworker Dairy: Angely Yancey MD [address] [place] [address] Scheduled Referrals Name Type Priority Associated Diagnoses Orde r Schedule Ambulatory referral to Neurosurgery Outpatient Referral Routine Spinal stenosis, unspecified spinal region Expected: 02/28/2024, Expires: 08/27/2024 documented as of this encounter Visit Diagnoses Diagnosis Spinal stenosis, unspecified spinal region- Primary documented in this encounter Care Teams Fiberglass Laminator Relationship Specialty Start Date End Date Jadon Dunn MD 4 [place] [address] PCP - General Family Medicine 08/25/16 documented as of this encounter
--- OUTSIDE RECORDS SUMMARY | 2024-03-20 06:26 | XMS_ITS | Encounter Summary ---
Author Organization [facility] Address [address] [place] [address] Care Team Providers Care Chiropractor Sole Practitioner Name Role Phone Jadon Dunn MD Primary Care Provider [phone] Encounter Details Date Type Department Care Team (Late st Contact Info) Description 03/01/2024 myChart Message [facility] Family Practice [address] [place] [phone] Jadon Dunn MD [address] [place] [address] Refill needed on tramadol Social History Tobacco Use Types Packs/Day Years Used Date Smoking Tobacco: Never Smokeless Tobacco: Never Comments:: Alcohol Use Standard Drinks/Week Comments Yes 0 (1 standard drink = 0.6 oz pur e alcohol) holidays [facility] Utilities Answer Date Recorded In the past 12 months has e [employer], gas, oil, or water [employer] threatened to shut off services in your [...] Info) Description 04/02/2024 10:45 AM EST Follow-Up [facility] 85 [place] Pulmonology [address] [address] Hardeep Mayers MD [address] [address] 04/12/2024 3:30 PM EST Follow-Up [facility] Neurology Clinic [address] [place] [address] Luz Felix MD [address] [place] [address] 06/05/2024 1:30 PM EDT Office Visit [facility] B [address] [place] [address] Timo Payne MD [address] [place] [address] 06/19/2024 2:00 PM EDT Follow-Up [facility] Endocrinology Clinic 55 [place] [address] Financial Services Associate: Anna Moody MD [address] [place] [address] 07/16/2024 8:00 AM EDT Appointment [facility] Cardiac Ultrasound [address] [place] [address] 07/16/2024 9:00 AM EDT Follow-Up [facility] 4th floor Cardiology Medicine [address] [place] [address] Financial Services Associate: Iveth Padron 02/10/2025 4:40 PM EST Follow-Up [facility] 4th floor Cardiology Medicine [address] [place] [address] Financial Services Associate: Angely Yancey MD [address] [place] [address] documented as of this encounter Visit Diagnoses Not on filedocumented in this encounter Care Teams Chiropractor Sole Practitioner Relationship Specialty Start Date End Date Jadon Dunn MD [address] [place] [address] PCP - General Family Medicine 08/25/16 documented as of this encounter
--- OUTSIDE RECORDS SUMMARY | 2024-03-20 06:26 | XMS_ITS | Encounter Summary ---
Author Organization [facility] Address [address] [place] [address] Care Team Providers Care Foreign Correspondent Name Role Phone Jadon Dunn MD Primary Care Provider [phone] Encounter Details Date Type Department Care Team (Late st Contact Info) Description 03/01/2024 Orders Only [facility] Family Practice [address] [place] [phone] Jadon Dunn MD [address] [place] [address] Social History Tobacco Use Types Packs/Day Years Used Date Smoking Tobacco: Never Smokeless Tobacco: Never Comments:: Alcohol Use Standard Drinks/Week Comments Yes 0 (1 standard drink = 0.6 oz pur e alcohol) holidays [facility] Utilities Answer Date Recorded In the past 12 months has [employer], gas, oil, or water [employer] threatened to shut off services in your [...] Info) Description 04/02/2024 10:45 AM EST Follow-Up [facility] 85 [place] Pulmon[facility] [address] [address] Hardeep Mayers MD [address] [address] 04/12/2024 3:30 PM EST Follow-Up [facility] Neurology Clinic [address] [place] [address] Luz Felix MD 26 [place] [address] 06/05/2024 1:30 PM EDT Office Visit [facility] B [address] [place] [address] Timo Payne MD [address] [place] [address] 06/19/2024 2:00 PM EDT Follow-Up [facility] Endocrinology Clinic 55 [place] [address] School Guard: Anna Moody MD 55 [place] [address] 07/16/2024 8:00 AM EDT Appointment [facility] Cardiac Ultrasound 55 [place] [address] 07/16/2024 9:00 AM EDT Follow-Up [facility] 4th floor Cardiology Medicine [address] [place] [address] School Guard: Iveth Padron 02/10/2025 4:40 PM EST Follow-Up [facility] 4th floor Cardiology Medicine [address] [place] [address] School Guard: Angely Yancey MD [address] [place] [address] documented as of this encounter Visit Diagnoses Not on filedocumented in this encounter Care Teams Foreign Correspondent Relationship Specialty Start Date End Date Jadon Dunn MD [address] [place] [address] PCP - General Family Medicine 08/25/16 documented as of this encounter
--- OUTSIDE RECORDS SUMMARY | 2024-03-20 06:26 | XMS_ITS | Encounter Summary ---
Author Organization [facility] Address [address] [place] [address] Care Team Providers Care Customer Marketing Intern Name Role Phone Jadon Dunn MD Primary Care Provider [phone] Encounter Details Date Type Department Care Team (Late st Contact Info) Description 01/27/2023 Orders Only [facility] Interventional Radiology [address] [place] [address] [phone] Jenniffer Swanson MD [address] [place] [address] [phone] Social History Tobacco Use Types Packs/Day Years [...] Info) Description 04/02/2024 10:45 AM EST Follow-Up [facility] 85 [place] Pulmonology [address] [address] Hardeep Mayers MD [address] [address] 04/12/2024 3:30 PM EST Follow-Up [facility] Neurology Clinic 55 [place] [address] Luz Felix MD 26 [place] [address] 06/05/2024 1:30 PM EDT Office Visit [facility] B 119 [place] [address] Timo Payne MD [address] [place] [address] 06/19/2024 2:00 PM EDT Follow-Up [facility] Endocrinology Clinic 55 [place] [address] Supervisor Public Message Service: Anna Moody MD [address] [place] [address] 07/16/2024 8:00 AM EDT Appointment [facility] Cardiac Ultrasound 55 [place] [address] 07/16/2024 9:00 AM EDT Follow-Up [address] floor Cardiology Medicine 55 [place] [address] Supervisor Public Message Service: Iveth Padron 02/10/2025 4:40 PM EST Follow-Up [address] Cardiology Medicine [address] [place] [address] Supervisor Public Message Service: Angely Yancey MD [address] [place] [address] documented as of this encounter Visit Diagnoses Not on filedocumented in this encounter Care Teams Customer Marketing Intern Relationship Specialty Start Date End Date Jadon Dunn MD [address] [place] [address] PCP - General Family Medicine 08/25/16 documented as of this encounter
--- OUTSIDE RECORDS SUMMARY | 2024-03-20 06:26 | XMS_ITS | Encounter Summary ---
Author Organization [facility] Address [address] [place] [address] Care Team Providers Care Control Technician Name Role Phone Jadon Dunn MD Primary Care Provider [phone] Encounter Details Date Type Department Care Team (Late st Contact Info) Description 02/20/2024 Telephone [facility] Family Practice [address] [place] [phone] Jadon Dunn MD [address] [place] [address] Social History Tobacco Use Types Packs/Day Years Used Date Smoking Tobacco: Never Smokeless Tobacco: Never Comments:: Alcohol Use Standard Drinks/Week Comments Yes 0 (1 standard drink = 0.6 oz pur e alcohol) holidays [facility] Utilities Answer Date Recorded In the past 12 months has [employer], gas, oil, or water [employer] threatened to shut off services in your [...] for her to reach back out. July: [phone] * Telephone Encounter - ABDOUL Gilman - [...] Info) Description 04/02/2024 10:45 AM EST Follow-Up [facility] 85 [place] Pulmonology [address] [place] [address] Hardeep Mayers MD [address] [address] 04/12/2024 3:30 PM EST Follow-Up [facility] Neurology Clinic 55 [place] [address] Luz Felix MD [address] [place] [address] 06/05/2024 1:30 PM EDT Office Visit [facility] B [address] [place] [address] Timo Payne MD 119 [place] [address] 06/19/2024 2:00 PM EDT Follow-Up [facility] Endocrinology Clinic [address] [place] [address] High School Physical Education Teacher: Anna Moody MD 55 [place] [address] 07/16/2024 8:00 AM EDT Appointment [facility] Cardiac Ultrasound [address] [place] [address] 07/16/2024 9:00 AM EDT Follow-Up [facility] 4th floor Cardiology Medicine [address] [place] [address] High School Physical Education Teacher: Iveth Padron 02/10/2025 4:40 PM EST Follow-Up [facility] 4th floor Cardiology Medicine [address] [place] [address] [employer] Physical Education Teacher: Angely Yancey MD [address] [place] [address] documented as of this encounter Visit Diagnoses Not on filedocumented in this encounter Care Teams Control Technician Relationship Specialty Start Date End Date Jadon Dunn MD [address] [place] [address] PCP - General Family Medicine 08/25/16 documented as of this encounter
--- OUTSIDE RECORDS SUMMARY | 2024-03-20 06:26 | XMS_ITS | Encounter Summary ---
Author Organization [facility] Address [address] [place] [address] Care Team Providers Care Wash Helper Name Role Phone Jadon Dunn MD Primary Care Provider [phone] Reason for Visit * Reason Onset Date Comments PAC Appt Request - Established- Luz Felix MD 03/01/2024 Encounter Details Date Type Department Care Team (Late st Contact Info) Description 03/01/2024 Telephone [facility] Neurology Clinic [address] [place] [address] [phone] Telephone Intake, Staff PAC Appt Request - Gerardo- Luz Felix MD Social History Tobacco Use Types Packs/Day Years Used Date Smoking Tobacco: Never Smokeless Tobacco: Never Comments:: Alcohol Use Standard Drinks/Week Comments Yes 0 (1 standard drink = 0.6 oz pur e alcohol) holidays [facility] Utilities Answer Date Recorded In the past 12 months has [employer], gas, oil, or water [employer] threatened to shut off services in your [...] Please reach to Sean bah reschedule. # [phone] documented in this encounter Plan of Treatment Upcoming Encounters Date Type Department Care Team (Late st Contact Info) Description 04/02/2024 10:45 AM EST Follow-Up [facility] 85 [place] Pulmonology 85 [facility] [address] [place] [address] Hardeep Mayers MD [address] [address] 04/12/2024 3:30 PM EST Follow-Up [facility] Neurology Clinic [address] [place] [address] Luz Felix MD [address] [place] [address] 06/05/2024 1:30 PM EDT Office Visit [facility] B [address] [place] [address] Timo Payne MD 119 [place] [address] 06/19/2024 2:00 PM EDT Follow-Up [facility] Endocrinology Clinic 55 [place] [address] Cmo & President: Anna Moody MD 55 [place] [address] 07/16/2024 8:00 AM EDT Appointment [facility] Cardiac Ultrasound 55 [place] [address] 07/16/2024 9:00 AM EDT Follow-Up [facility] 4th floor Cardiology Medicine 55 [place] [address] Cmo & President: Iveth Padron 02/10/2025 4:40 PM EST Follow-Up [facility] 4th floor Cardiology Medicine 55 [place] [address] Cmo & President: Angely Yancey MD [address] [place] [address] documented as of this encounter Visit Diagnoses Not on filedocumented in this encounter Care Teams Wash Helper Relationship Specialty Start Date End Date Jadon Dunn MD 604 [place] [address] PCP - General Family Medicine 08/25/16 documented as of this encounter
--- OUTSIDE RECORDS SUMMARY | 2024-03-20 06:26 | XMS_ITS | Encounter Summary ---
Author Organization [facility] Address [address] [place] [address] Care Team Providers Care Cotton Grader Name Role Phone Jadon Dunn MD Primary Care Provider [phone] Reason for Visit * Reason Comments Med Refill Encounter Details Date Type Department Care Team (Late st Contact Info) Description 03/01/2024 Refill [facility] [address] [place] [phone] Jadon Dunn MD [address] [place] [id number] Spinal stenosis, unspecified spinal region (Primary Dx) Social History Tobacco Use Types Packs/Day Years Used Date Smoking Tobacco: Never Smokeless Tobacco: Never Comments:: Alcohol Use Standard Drinks/Week Comments Yes 0 (1 standard drink = 0.6 oz pur e alcohol) holidays [facility] Utilities Answer Date Recorded In the past 12 months has [employer] electric, gas, oil, or water company threatened [...] Info) Description 04/02/2024 10:45 AM EST Follow-Up [address] Pulmonology [address] [address] Hardeep Mayers MD [address] [address] 04/12/2024 3:30 PM EST Follow-Up [facility] Neurology Clinic [address] [place] [address] Luz Felix MD [address] [place] [address] 06/05/2024 1:30 PM EDT Office Visit [facility] B [address] [place] [address] Timo Payne MD [address] [place] [address] 06/19/2024 2:00 PM EDT Follow-Up [facility] Endocrinology Clinic [address] [place] [address] Professor Of Business: Anna Moody MD [address] [place] [address] 07/16/2024 8:00 AM EDT Appointment [facility] Cardiac Ultrasound [address] [place] [address] 07/16/2024 9:00 AM EDT Follow-Up [facility] 4th floor Cardiology Medicine [address] [place] [address] Professor Of Business: Iveth Padron 02/10/2025 4:40 PM EST Follow-Up [address] floor Cardiology Medicine [address] [place] [address] Professor Of Business: Angely Yancey MD [address] [place] [address] documented as of this encounter Visit Diagnoses Diagnosis Spinal stenosis, unspecified spinal region- Primary documented in this encounter Care Teams Cotton Grader Relationship Specialty Start Date End Date Jadon Dunn MD [address] [place] [address] PCP - General Family Medicine 08/25/16 documented as of this encounter
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
[2024-03-20 06:44] VITALS: BMI 24.8
[2024-03-20 06:56] VITALS: BP 137/82; PULSE 73; RESP 16; TEMP 37.1; O2SAT 97
[2024-03-20] MEDS: methocarbamoL 750 MG TABLET PO (07:04)
[2024-03-20] MEDS: Gabapentin 300 MG CAPSULE PO (07:04)
[2024-03-20] MEDS: Lactated Ringers 1,000 ML 100 ML IVCONT (07:09)
--- NOTE | 2024-03-20 07:17 | MHC.SHP ---
Pre-Procedural Eval Section A - 24 Hr Update-Section A only Date of Service: 03/20/24 Section B - Complete if H&P > 30 days Chief Complaint: Radiculopathy, lumbosacral region,spinal stenosis Allergies: Allergies Allergy/AdvReac Type Severity Reaction Status Date / Time No Known Allergies Allergy Verified 03/20/24 06:59 Review of Systems Sugical H&P ROS: Negative: Constitution, Cardiovascular, Respiratory, Neurological, Psychiatric, Hem-Onc, Allergic/Immunologic, Gastrointestinal, Genitourinary, Musculoskeletal, Integumentary, Endocrine and Eyes/Ears/Nose/Throat Exam Surgical H&P Exam: Not Evaluated: HEENT, Not Evaluated: Heart, Not Evaluated: Lungs, Not Evaluated: Extremities, Not Evaluated: Abdomen, Not Evaluated: Skin and Not Evaluated: Neurological Exam Comment: Patient is awake, alert in no acute distress. Proposed surgical incision site is clean and dry. Plan I have reviewed the history and physical and performed a pertinent physical examination on my patient. No changes have occurred unless specified. Plan remains the same, left L3-4 hemilaminotomy, left L5 foraminotomy. Time Spent With Patient Time: Total time managing care of this patient today __7__ minutes.
[2024-03-20] MEDS: ceFAZolin Sodium/Dextrose,Iso 2 GM/50 ML PIGGYBACK IV (07:45)
--- NOTE | 2024-03-20 09:18 | W.PM.OPN ---
Operative Note Operative Note Date of Service: 03/20/24 Narrative: Preoperative Diagnosis: L3-4, L5-S1 spinal stenosis/lateral recess stenosis/neural foraminal stenosis Operation: Left L3-4 Laminotomy, Partial facetectomy and foraminotomy; left L5 laminotomy and foraminotomy with use of microscope Consent Informed Consent was obtained for this operation. I have explained the nature, purpose and benefits of the operation. I have discussed the risks and benefit of the operation including possible complications or adverse events with patient/family. Alternative(s) were discussed with the patient with their relative benefits and risks as well as the consequences of not accepting the operation were included in obtaining consent. Surgeon: LORRI RICK MD, PHD Procedure Assisted By: Julian Leyva Pac Description of Procedure This 74 year old male is suffering from excruciating left lumbar radiculopathy most likely due to severe left L5 foraminal stenosis. The MRI also shows severe L3-4 spinal stenosis. Therefore, I offered him not only an L5 foraminotomy but also a left L3-4 laminotomy me to address his severe lumbar radiculopathy. The procedure and complications were explained. The patient was consented. The patient was brought to the operating room and endotracheally intubated. The patient was turned in prone position on the Cameron frame. Prep and drape was done followed by timeout. The Physician laboratory chemical assistant provided access. A mid lumbar incision was made followed by release of the paravertebral muscle bilaterally to expose the L3-4 laminae and facet joint and L5-S1 laminae and facet joint. An intraoperative x-ray was obtained to confirm the correct levels. The microscope was brought in. I took over the procedure. The high-speed drill was used to do a left L3-4 laminotomy until flavum ligament was reached. A #2 Kerrison was used to expand the laminotomy near flush to the pedicles and to include a partial facetectomy. The flavum ligament was opened and resected with a #3 Kerrison to decompress the underlying thecal sac. The flavum ligament was removed to decompress the lateral recess and the exiting left L4 nerve root. A long nerve hook could be easily passed along the medial side of the pedicle as a sign of adequate decompression. Then attention was turned to the L5-S1 area. A left L5 laminotomy was done. The medial wall of the L5 pedicle and the beginning of the L5 foramen for palpated. Another x-ray confirmed the correct location. Accordingly, a partial facetectomy was done and the origin of the L5 nerve root was decompressed by removing hypertrophied flavum ligament and bone. A foraminotomy Kerrison was used to further decompress the nerve root in the foramen. Residual lateral foraminal stenosis was relieved with curve corrects. The microscope was removed. Hemostasis was done. The physician laboratory chemical assistant close the incision in 2 layers. Steri-Strips were used to approximate incision. An OpSite with Tegaderm was used to cover the incision. All sponge needle counts were correct. Patient was extubated and transported in stable is to recovery room. Anesthesia: General Estimated Blood Loss (ml): 30 mL Complications: None Duration of Surgery: 60 Minutes Postoperative Plan: Discharge to home
[2024-03-20 09:19] VITALS: BP 135/74; PULSE 107; RESP 16; TEMP 36.8; O2SAT 95
[2024-03-20 09:24] VITALS: BP 128/75; PULSE 101; RESP 16; O2SAT 97
[2024-03-20 09:29] VITALS: BP 133/76; PULSE 96; RESP 16; O2SAT 97
[2024-03-20 09:34] VITALS: BP 125/73; PULSE 96; RESP 16; O2SAT 96
--- NOTE | 2024-03-20 09:46 | P.DS_ITS ---
DS: Providers Provider Date of Service: 03/20/24 Date of discharge: 03/20/24 Primary care physician: Jadon Dunn MD DS: Summary Time Attestation Discharge Coordination Time (in mins): 13 Quality: Safe Use of Opioids Does Pt have an Active Cancer Diagnosis on the Problem List?: No Quality: Stroke Does the patient have a stroke diagnosis?: No Physical Exam Vital Signs: Vital Signs: Last Vital Signs Temp 98.3 F 03/20/24 09:19 Pulse 96 03/20/24 09:34 Resp 16 03/20/24 09:34 BP 125/73 03/20/24 09:34 Pulse Ox 96 03/20/24 09:34 O2 Del Method Room Air 03/20/24 09:34 BMI result Body Mass Index 24.8 Discharge Plan Discharge Patient Disposition: Home, Self-Care Referrals: Jadon Dunn MD [Primary Care Provider] - 1 Week Discharge Medications: New oxycodone 5 mg tablet 5 mg PO Q6H PRN (Reason: pain) Qty: 30 0RF Rx Instructions: Partial Fill upon patient request. Continued tramadol 50 mg tablet 50 mg PO Q8-10H PRN (Reason: Pain) methimazole 5 mg tablet 5 mg PO DAILY sertraline 25 mg tablet 50 mg PO DAILY diclofenac sodium 75 mg Tablet,Delayed Release (Dr/Ec) 75 mg PO BID lisinopril 40 mg tablet 40 mg PO DAILY rosuvastatin 20 mg tablet 20 mg PO BEDTIME acetaminophen [Acetaminophen Extra Strength] 500 mg Tablet 1,000 mg PO BID PRN (Reason: Pain) Discharge Orders: Discharge Order (Routine); Ordered 03/20/24 Ordered By: Julian Leyva Diet: Advance to usual diet Activity on Discharge: As tolerated Activity Restrictions/Additional Instructions: After your spinal surgery we ask you to observe the following restrictions/guidelines: Activity: It is normal to feel some discomfort as you increase your activity, but that will improve with time. We ask you avoid heavy lifting or acitivities that cause pain. As a general rule, 8lbs is a safe limit for lifting right after surgery. Walk as much as you feel comfortable but not to exhaustion. You will feel extra tired the first few days after surgery. Stay well hydrated. It is OK to walk up and down stairs You may return to driving when you are off narcotics (such as vicodin, oxycodone, dilaudid, etc), and you are back to normal functional capacity. If you have any concerns please check with office before driving. Return to work is specific to each patient and each surgery, so please speak with your doctor/PA at first follow up. Please bring paperwork such as FMLA at that time if you need it filled out. Medications: We recommend you take 1,000mg Tylenol every 8 hours for the first few weeks after surgery, if you do not have any liver issues and can tolerate this medication. Do not exceed 4,000mg daily. We will give you a short supply of narcotics after surgery (usually one weeks worth). Please take this only as needed secondary to [id number] medications for pain control. If you need more please call the office but do not use more than prescribed. You will need to give our office 48 hours notice if you need narcotics refilled and we do not fill narcotics on weekends or evenings. If you are on a narcotic, it is a good idea to take a stool softener such as colace or senna to avoid constipation If you take blood thinner such as aspirin, Plavix, Coumadin, Effient, Eliquis etc for conditions such as Afib, DVT, Pulmonary embolus, coronary disease, stents etc please speak with your surgeon about specific details as to when you can resume these medications. You can resume NSAIDs on post op day 1 (eg: Motrin, Naproxen, etc). Follow up: Please call the office, , after surgery to arrange a 3 week follow up for wound check. Wound Care: You may remove your dressing on the first day after surgery. ?You may ?leave open to air. Please do not remove the steri strips underneath. they will fall off on their own in one week. IT IS NORMAL FOR THE WOUND TO OOZE OR BE BLOODY FOR A FEW DAYS AFTER SURGERY. ?IF THIS HAPPENS JUST PLACE NEW DRESSING OVER IT TO AVOID STAINING CLOTHES. You may shower on post op day # 1 We ask that you do not let the water soak the wound. If it does get wet, just towel dry lightly. Please do not scrub your incision or place any type of chemical/ointment on the wound. No tub baths, pools or jacuzzis for one month. If you have any leaking or redness from your wound, or fevers, please call the office. Print Language: Swedish
[2024-03-20 09:49] VITALS: BP 130/79; PULSE 88; RESP 16; O2SAT 98
== END 2024-03-20 10:42 | disposition home or self-care (01) ==
PROVIDERS: PCP Family Medicine; Visit Provider Neurological Surgery
PROC: (CPT 63047; principal; 2024-03-20 07:30)
DX: M48.062 Spinal stenosis, lumbar region with neurogenic claudication (principal); M54.17 Radiculopathy, lumbosacral region; I10 Essential (primary) hypertension; I25.10 Atherosclerotic heart disease of native coronary artery without angina pectoris; Z95.2 Presence of prosthetic heart valve; G30.0 Alzheimer's disease with early onset; F02.80 Dementia in other diseases classified elsewhere, unspecified severity, without behavioral disturbance, psychotic disturbance, mood disturbance, and anxiety; E05.00 Thyrotoxicosis with diffuse goiter without thyrotoxic crisis or storm; Z79.1 Long term (current) use of non-steroidal anti-inflammatories (NSAID); Z79.899 Other long term (current) drug therapy
CPT/HCPCS: 63047; 63048; J0131; J0690; J1100; J2003; J2250; J2371; J2405; J2704; J3010

== ENCOUNTER → 2024-03-20 06:23 | Outpatient (BNV) | payer MEDICARE, SELFPAY | PROVIDERS: PCP Family Medicine; Visit Provider Neurological Surgery | DX: M48.062 Spinal stenosis, lumbar region with neurogenic claudication (principal) | CPT/HCPCS: 63047; 63048; 99499 ==

== ENCOUNTER 2024-04-10 13:15 | Outpatient (AMB) | payer MEDICARE, SELFPAY ==
--- NOTE | 2024-04-10 13:44 | A.SPINEOV_ITS ---
Intake Visit Reasons: 1st post op Intake Note: Mr. Patel is here today for his 1st post op. Early Morning Required: No Allergies No Known Allergies Allergy (Verified 04/10/24 13:44) Assessment & Plan Assessment & Plan (1) Status post lumbar spine surgery for decompression of spinal cord: Code(s): Z98.890 - Other specified postprocedural states Category: Surgical Plan Procedure: Left L3-4 Laminotomy, Partial facetectomy and foraminotomy Sean comes in today for his 1st postoperative visit after having a left L3-[address] Jolly a few weeks ago. He is accompanied by his Tiarra. To recap he was suffering from severe left leg pain radiating down to his left lateral calf when he was initially evaluated in clinic. Today, he reports almost complete resolution of his symptoms. He does state that he still has some pain in his left calf, but overall it is significantly improved compared to prior to surgery. He is ambulating well around his home, and has no issue completing stairs. He is no longer utilizing his narcotic pain medication. He asked several questions regarding the postoperative healing course all of which I answered to the best of my ability. No new neurological deficits. The patient ambulates well and rises from a s eated position without difficulty. His posterior incision site is closed, well healing, with no signs of swelling or drainage. I would like to follow up with eSan again in 6 weeks for his 2nd postoperative visit. Julian Jolly MD,PhD [facility] Coding Level of Care Code Global (69906) Diagnoses Status post lumbar spine surgery for decompression of spinal cord Z98.890
--- OUTSIDE RECORDS SUMMARY | 2024-04-10 15:48 | XMS_ITS | Referral Summary ---
Author Organization [facility] Address [address] [place] [address] Care Team Providers Care Senior Capital Markets Specialist Name Role Phone Jadon Dunn MD Primary Care Provider [phone] Encounters * This document contains information received from the source organization and may not represent a complete record from that organization. Date Type Department Care Team Description 04/08/2024 Orders Only [facility] [address] [place] [address] Provider, MD Tommy 04/06/2024 External Contact [facility] [address] [place] [address] Hardeep Mayers MD GONSALO (obstructive sleep apnea) [G47.33] (Primary Dx) 04/06/2024 Telephone [facility] [address] [place] [address] Hardeep Mayers MD HST Results - CPAP 04/03/2024 myChart Message [facility] [address] [place] [address] Mychart, Generic Provider APPOINTMENT 04/02/2024 Telephone [facility] [address] [place] [address] Hardeep Mayers MD 04/02/2024 10:45 AM EST Follow-Up [facility] [address] [place] [address] Hardeep Mayers MD GONSALO (obstructive sleep apnea) (Primary Dx) 03/09/[address] [address] Jadon Dunn MD 03/01/2024 myChart Message [address] [address] Jadon Dunn MD Refill needed on tramadol 03/01/[address] [address] Jadon Dunn MD Spinal stenosis, unspecified spinal region (Primary Dx) 03/01/2024 Orders Only [address] [address] Jadon Dunn MD 03/01/2024 Telephone [facility] [address] [place] [address] Telephone Intake, Staff PAC Appt Request - Noé Felix MD 02/28/2024 Orders Only [address] [address] Jadon Dunn MD Spinal stenosis, unspecified spinal region (Primary Dx) 02/28/[address] [address] Jadon Dunn MD 02/22/[address] [address] Jadon Dunn MD 02/20/[address] [place] [address] Jadon Dunn MD 01/29/[address] [address] Jadon Dunn MD 01/29/[address] [address] Jadon Dunn MD 01/18/2024 myChart Message [address] [address] Jadon Dunn MD labs look great 01/16/2024 3:00 PM EST Office Visit [address] [address] Jadon Dunn MD Acute neuritis (Primary Dx); Alzheimer's disease (HCC); Graves' disease from Last 3 Months Allergies No known active allergies Medications * This document contains information received from the source organization and may not represent a complete record from that organization. aspirin 81 mg EC tablet Take 1 tablet (81 mg total) by mouth once a day. 90 tablet 3 4 Active rosuvastatin (CRESTOR) 20 mg tablet Take 1 tablet (20 mg total) by mouth nightly. 90 tablet 3 4 Active lisinopriL (PRINIVIL,ZESTRIL ) 40 mg tabletIndications :Essential (primary) hypertension TAKE 1 TABLET EVERY DAY DIRECTED. 90 tablet 3 4 Active sertraline (ZOLOFT) 25 mg tablet Take 2 tablets (50 mg total) by mouth once a day. 60 tablet 3 4 Active methIMAzole (TAPAZOLE) 5 mg tablet Take 1 tablet (5 mg total) by mouth once a day. 90 tablet 3 4 Active diclofenac (VOLTAREN) 75 mg EC tablet Take 1 tablet (75 mg total) by mouth 2 times a day. 60 tablet 1 5 Active oxyCODONE-acetami nophen (PERCOCET) 5-325 mg tablet Take 1 tablet by mouth every 6 hours as needed. 4 Active Active Problems Problem Noted Date Diagnosed Date Acute neuritis 01/16/2024 Assessment & Plan (01/16/2024 5:05 PM EST): Differential includes infectious versus secondary to the Tapazole versus referred pain from the lumbar spine. Will obtain labs. Venous duplex in [place] demonstrated no sign of a DVT so [...] maintenance issues. Advanced directive is recorded in [facility] Assessment & Plan (07/14/2020 1:39 PM EDT): [...] day. He should schedule follow-up with his bath steward/stewardess. 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 Will refer [...] diagnosed with essential tremor years ago by [facility] neurology Assessment & Plan (07/14/2021 3:15 [...] the repeat echo. Will order today. Immunizations Immunization Administration Dates Next Due COVID-19, Pfizer, mRNA, Biva lent Booster, PF, 30 mcg/0.3 mL dose (for age 12 y and up) 06/21/2022 Covid-19, Moderna, mRNA, Vac cine, PF, 50 mcg/0.5 mL (for age 12 y and up) 10/14/2023,10/30/2022 Covid-19, Pfizer, mRNA, [place]agu[place] valent, PF 30 mcg/0.3 mL dose (for [...] Vaccine, 23 Valent 04/03/2013 Pneumococcal conjugate PCV20,polysaccharide KFF898 conjugate, adjuvant, PF (Prevnar 20) 11/27/2022 RSV, [...] = 0.6 oz pur e alcohol) holidays [facility] Utilities Answer Date Recorded In [...] Sign Reading Time Taken Comments Blood Pressure 158/87 04/02/2024 11:04 AM EST Pulse 77 04/02/2024 11:04 AM EST Temperature 36.7 ??C (98.1 ??F) 10/13/2023 3:03 PM ED T Respiratory Rate 16 10/13/2023 3:03 PM EDT Oxygen Saturation 97% 04/02/2024 11:04 AM EST Inhaled Oxygen Concentration - - Weight 80.7 kg (178 lb) 04/02/2024 11:04 AM EST Height 177.8 cm (5' 10 ) 04/02/2024 11:04 AM EST Body Mass Index 25.54 04/02/2024 11:04 AM EST Plan of Treatment Upcoming Encounters Date Type Department Care Team (Late st Contact Info) Description 04/12/2024 3:30 PM EST Office Visit [facility] [address] [place] [address] Luz Felix MD [address] [place] [address] 06/05/2024 1:30 PM EDT Office Visit [facility] [address] [place] [address] Timo Payne MD [address] [place] [address] 06/19/2024 2:00 PM EDT Follow-Up [facility] [address] [place] [address] Anvilsmith: Anna Moody MD [address] [place] [address] 07/16/2024 8:00 AM EDT Appointment [facility] Cardiac Ultrasound [address] [place] [address] 07/16/2024 9:00 AM EDT Follow-Up [facility] 4th floor Cardiology Medicine [address] [place] [address] Anvilsmith: Iveth Padron 02/10/2025 4:40 PM EST Follow-Up [address] floor Cardiology Medicine [address] [place] [address] Anvilsmith: Iveth Lux, Angely West MD [address] [place] [address] 04/08/2025 10:45 AM EST Follow-Up [facility] [address] [place] [address] Hardeep Mayers MD [address] [address] Medical Devices Implanted Type Area Group Home Counselor Device Identifier Shelf Expiration Date Model / Serial / Lot System Closure And Repair Suture-Mediated Perclose Prostyle - S0 - [id number] Implanted:Qty: 1 on 06/20/2023 by Tina Reyes MD at [facility] Implant Right: Groin [employer] [id number] 03/08/2025 [id number] / 0 / [id number] System Closure And Repair Suture-Mediated Perclose Prostyle - S0 - [id number] Implanted:Qty: 1 on 06/20/2023 by Tina Reyes MD at [facility] Implant Right: Groin [employer] [id number] 03/08/2025 [id number] / 0 / [id number] Device Closure Vascular Plug 6fr Angio-Seal Vip - S0 - [id number] Implanted:Qty: 1 on 06/20/2023 by Tina Reyes MD at [facility] Implant Left: Groin [employer] [id number] 12/23/2023 [id number] / 0 / [id number] 91 Valve Heart Transcatheter With Commander System 26mm Quintana Leah 3 Ultra Resilia - [id number] - [id number] Implanted:Qty: 1 on 06/20/2023 by Tina Reyes MD at [facility] Tissue N/A: Heart [employer] 09/26/2025 [id number] / [id number] / Explanted Type Area Group Home Counselor Device Identifier Shelf Expiration Date Model / Serial / Lot Catheter Femoral Insertion Coram-Kumar J-Tip 5fr 90cm - S0 - [id number] Explanted:Qty: 1 on 06/20/2023 by Tina Reyes MD at [facility] Catheter Left: Vein [employer] [id number] 12/25/2024 [id number] / 0 / [id number] Procedures * Due to [place] state law, this organization might not be sharing negative HIV tests. Procedure Name Priority Date/Time Associated Diagnosis Comments SLEEP STUDY - SCANNED Routine 04/03/2024 8:11 AM EST PROCEDURE - SCANNED 03/20/2024 PROCEDURE - SCANNED 03/20/2024 MRI LUMBAR SPINE WO CONTRAST Routine 02/25/2024 5:20 PM EST Sciatica of left side IMAGING - SCANNED 02/25/2024 VITAMIN B12 Routine 01/17/2024 1:57 PM EST SEDIMENTATION RATE, AUTOMATED Routine 01/17/2024 1:57 PM EST Acute neuritis [facility], ANTIBODY [id number] Routine 01/17/2024 1:57 PM EST Acute neuritis C-REACTIVE PROTEIN Routine 01/17/2024 1: 57 PM EST Acute neuritis CBC AUTO DIFFERENTIAL Routine 01/17/2024 1:57 PM EST Acute neuritis COMPREHENSIVE METABOLIC PANEL Routine 01/17/2024 1:57 PM EST Acute neuritis HEPATITIS PANEL, ACUTE Routine 7 11:38 AM EST COLONOSCOPY 11/02/2015 11:14 AM EDT from Last 3 Months or Most Recently Relevant to Health Maintenance Results * Due to [place] state law, this organization might not be sharing negative HIV tests. * SLEEP STUDY - SCANNED (04/03/2024 8:11 AM EST) us Unknown Provider MD SCANNED PROCEDURES Final Res ult * PROCEDURE - SCANNED (03/20/2024) us Onbase Scan Radha SCANNED PROCEDURES Final Resu lt * PROCEDURE - SCANNED (03/20/2024) us Onbase Scan Radha SCANNED PROCEDURES Final Resu lt * MRI Lumbar Spine without Contrast (02/25/2024 [...] obtain the completed interpretation. ? Workstation ID: [id number] Narrative 02/27/2024 11:01 AM EST INDICATION: Severe [...] of the paraspinal musculature. Resulting Agency Comment [id number] Procedure Note Benjamin Chamorro MD - 02/27/2024 [...] possible to obtain thecompleted interpretation. Workstation ID: [id number] us Jadon Dunn MD IMG MRI PROCEDURES Final Resul t * IMAGING - SCANNED (02/25/2024) Anatomical Region Laterality Modality Other us Onbase Scan Radha SCANNED PROCEDURES Final Resu lt * Vitamin B12 & Folate (01/17/2024 1:57 PM EST) [facility] Vitamin B12 450 200 - 1,100 pg/mL 01/18/2024 3:52 AM EST [employer] Folate, Serum 18.5 ng/mL 01/18/2024 3:52 AM EST [facility] Comment: ? Reference Range ? Low: ? <3.4 ? Borderline: ?3.4-5.4 ? Normal: ?>5.4 01/17/2024 1:57 PM EST 01/18/2024 2:54 AM EST Narrative [facility] - 01/24/2024 1:58 PM EST FASTING:NO us Jadon Dunn MD LAB BLOOD ORDERABLES Final Res ult [facility] [address] [facility] [address], [place] [address], [place] [phone] [facility] [address] [address] * Tick-borne disease, antibody (01/17/2024 1:57 PM EST) A. Phagocytophilum IGG <1:64 <1:64 01/24/2024 1:51 PM EST [email or web address] A. Phagocytophilum IGM <1:20 <1:20 01/24/2024 1:51 PM EST [employer] [facility] Interpretation ANTIBODY NOT DETECTED 01/24/2024 1:51 PM EST [employer] [facility] Comment See Comments 01/24/2024 1:51 PM EST [employer] [facility] Comment: Anaplasma phagocytophilum is the tick-borne agent causing Human Granulocytic Ehrlichiosis (HGE). HGE is distinct and separate from Human Monocytic Ehrlichiosis (HME), caused by Ehrlichia chaffeensis. Serologic cross-reactivity between A. phagocytophilum and E. Chaffeensis is minimal (5-15%). This test was developed and its performance characteristics have been determined by [email or web address]. It has not been cleared or approved by the U.S. Food and Drug Administration. This assay has been validated pursuant to the CLIA regulations and is used for clinical purposes. WA1 IGG Antibody, IFA <1:256 01/19/2024 6:09 PM EST [email or web address] Comment: REFERENCE RANGE: ??<1:256 ?INTERPRETIVE CRITERIA: ? <1:256 Antibody not detected ? > or = 1:256 Antibody detected Babesia duncani, also known as WA1, has been associated with symptoms similar to those caused by Babesia microti. Little, if any, cross-reactivity occurs between Babesia microti and WA1. This test was developed and its analytical performance characteristics have been determined by [email or web address]. It has not been cleared or approved by FDA. This assay has been validated pursuant to the CLIA regulations and is used for clinical purposes. Babesia Microti IgG <1:64 <1:64 titer 01/19/2024 11:31 PM EST [email or web address] [facility] Comment: This test was developed and its analytical performance characteristics have been determined by [email or web address]. It has not been cleared or approved by the FDA. This assay has been validated pursuant to the CLIA regulations and is used for clinical purposes. Babesia Microti IgM <1:20 <1:20 titer 01/19/2024 11:31 PM EST [email or web address] [facility] Comment: This test was developed and its analytical performance characteristics have been determined by [email or web address]. It has not been cleared or approved by the FDA. This assay has been validated pursuant to the CLIA regulations and is used for clinical purposes. Interpretation See Comments 01/19/2024 11:31 PM EST [employer] Comment: ANTIBODY NOT DETECTED Elevated antibody levels [...] Screen <0.90 index 01/18/2024 5:27 AM EST [email or web address] [facility] Comment: ? Index ?Interpretation ? ----- ? [...] IGG <1:64 <1:64 01/06 6:49 AM EST [employer] [facility] E. Chaffeensis AB IGM <1:20 <1:20 01/22/2024 6:49 AM EST [employer] [facility] Interpretation ANTIBODY NOT DETECTED 01/22/2024 6:49 AM EST [employer] [facility] Comment See Comments 01/22/2024 6:49 AM EST [employer] [facility] Comment: Ehrlichia chaffeensis has been identified [...] its performance characteristics have been determined by [email or web address]. It has not been cleared or approved [...] ORDERABLES Final Res ult [facility] [address] [facility] [address], [place] [address], [email or web address] [address] [address] [employer]/[facility] [address] [place] [address] * CBC Auto Differential (01/17/2024 1:57 PM EST) [facility] White Blood Cell Count 8.9 3.8 - 10.8 Thousand/ uL 01/18/2024 6:22 AM EST [email or web address] [facility] Red Blood Cell Count 4.75 4.20 - 5.80 Million/u L 01/18/2024 6:22 AM EST [employer] [facility] Hemoglobin 14.9 13.2 - 17.1 g/dL 01/18/2024 6:22 AM EST [employer] [facility] Hematocrit 43.6 38.5 - 50.0 % 01/18/2024 6:22 AM EST [employer] [facility] MCV 91.8 80.0 - 100.0 fL 01/18/2024 6:22 AM EST [employer] [facility] MCH 31.4 27.0 - 33.0 pg 01/18/2024 6:22 AM EST [employer] [facility] MCHC 34.2 32.0 - 36.0 g/dL 01/18/2024 6:22 AM EST [employer] [facility] Comment: For adults, a slight decrease in the calculated MCHC value (in the range of 30 to 32 g/dL) is most likely not clinically significant; however, it should be interpreted with caution in correlation with other red cell parameters and the patient's clinical condition. RDW 13.1 11.0 - 15.0 % 01/18/2024 6:22 AM EST [employer] [facility] Platelet Count 223 140 - 400 Thousand/ uL 01/18/2024 6:22 AM EST [employer] [facility] MPV 10.5 7.5 - 12.5 fL 01/18/2024 6:22 AM EST [employer] [facility] Absolute Neutrophils 6,542 1,500 - 7,800 cells/uL 01/18/2024 6:22 AM EST [employer] [facility] Absolute Lymphocytes 1,469 850 - 3,900 cells/uL 01/18/2024 6:22 AM EST [email or web address] [facility] Absolute Monocytes 641 200 - 950 cells/uL 01/18/2024 6:22 AM EST [facility] Eosinophils 160 15 - 500 cells/uL 01/18/2024 6:22 AM EST [employer] [facility] Absolute Basophils 89 0 - 200 cells/uL 01/18/2024 6:22 AM EST [employer] [facility] Neutrophils 73.5 % 01/18/2024 6:22 AM EST [employer] [facility] Lymphocytes 16.5 % 01/18/2024 6:22 AM EST [employer] [facility] Monocytes 7.2 % 01/18/2024 6:22 AM EST [employer] [facility] Eosinophils 1.8 % 01/18/2024 6:22 AM EST [employer] [facility] Basophils 1.0 % 01/18/2024 6:22 AM EST [employer] [facility] Blood Structure of peripheral vein / Unknown 01/17/2024 1:57 PM EST 01/18/2024 5:31 AM EST Narrative [facility] - 01/24/2024 1:58 PM EST FASTING:NO us Jadon Dunn MD LAB BLOOD ORDERABLES Final Res ult Performing Organization Address City/[facility]/ZIP Co de Phone Number [facility] [address], [place] [address], [place] [phone] [employer] [address] [address] * Sedimentation rate, automated (01/17/2024 1:57 PM EST) Sed Rate By Modified Rileyren 11 0 - 20 mm/h 01/18/2024 6:40 AM EST [employer] [facility] Blood Structure of peripheral vein / Unknown 01/17/2024 1:57 PM EST 01/18/2024 4:53 AM EST Narrative [facility] - 01/24/2024 1:58 PM EST FASTING:NO us Jadon Dunn MD LAB BLOOD ORDERABLES Final Res ult [facility] [address], [place] [address], [place] [phone] [employer] [facility] [address] [place] [address] * C-Reactive Protein (01/17/2024 1:57 PM EST) C-Reactive Protein 4.6 <8.0 mg/L 01/18/2024 5:21 AM [employer] Blood Structure of peripheral vein / Unknown 01/17/2024 1:57 PM EST 01/18/2024 2:54 AM EST Narrative [facility] - 01/24/2024 1:58 PM EST FASTING:NO us Jadon Dunn MD LAB BLOOD ORDERABLES Final Res ult [facility] [address] [facility] [address], [place] [address], [place] [phone] [email or web address] [address] [place] [address] * Comprehensive Metabolic Panel (01/17/2024 1:57 PM EST) Pathologist [facility] Glucose 127 65 - 139 mg/dL 01/18/2024 9:21 AM [employer] Comment: ? Non-fasting reference interval BUN 17 7 - 25 mg/dL 01/18/2024 9:21 AM [employer] Creatinine 0.87 0.70 - 1.28 mg/dL 01/18/2024 9:21 AM [employer] eGFR 90 > OR = 60 mL/min/1. 73m2 01/18/2024 9:21 AM [employer] Bun/Creatinine Ratio SEE NOTE: (calc) 01/18/2024 9:21 AM [employer] Comment: ?? Not Reported: BUN and Creatinine are within ?? reference range. ? Sodium 145 135 - 146 mmol/L 01/18/2024 9:21 AM [employer] Potassium 4.2 3.5 - 5.3 mmol/L 01/18/2024 9:21 AM [employer] Chloride 109 98 - 110 mmol/L 01/18/2024 9:21 AM [employer] Carbon Dioxide 26 20 - 32 mmol/L 01/18/2024 9:21 AM [employer] Calcium 9.5 8.6 - 10.3 mg/dL 01/18/2024 9:21 AM EST [employer] [facility] Protein, Total 7.1 6.1 - 8.1 g/dL 01/18/2024 9:21 AM EST [employer] [facility] Albumin 4.7 3.6 - 5.1 g/dL 01/18/2024 9:21 AM EST [employer] [facility] Globulin 2.4 1.9 - 3.7 g/dL (calc) 01/18/2024 9:21 AM EST [employer] [facility] Albumin/Globuli n Ratio 2.0 1.0 - 2.5 (calc) 01/18/2024 9:21 AM EST [employer] [facility] Bilirubin, Total 1.0 0.2 - 1.2 mg/dL 01/18/2024 9:21 AM EST [employer] [facility] Alkaline Phosphatase 56 35 - 144 U/L 01/18/2024 9:21 AM EST [employer] [facility] AST 13 10 - 35 U/L 01/18/2024 9:21 AM EST [employer] [facility] ALT 15 9 - 46 U/L 01/18/2024 9:21 AM EST [employer] [facility] Blood Structure of peripheral vein / Unknown 01/17/2024 1:57 PM EST 01/18/2024 2:54 AM EST Narrative [facility] - 01/24/2024 1:58 PM EST FASTING:NO us Jadon Dunn MD LAB BLOOD ORDERABLES Final Res ult [facility] [address] [facility] [address], [place] [address], [email or web address] [facility] [address] [place] [address] * Hepatitis Panel, Acute (04/05/2016 11:38 AM EST) Hepatitis A IgM NON-REACT LUCA NON-REACT LUCA [employer] [facility] Hepatitis B Surface Antigen NON-REACT LUCA NON-REACT LUCA [employer] [facility] Hepatitis B Core Antibody NON-REACT LUCA NON-REACT LUCA [employer] [facility] Hepatitis C Antibody NON-REACT LUCA NON-REACT LUCA [employer] [facility] Signal To Cut-Off 0.01 <1.00 [facility] 04/05/2016 11:3 8 AM EST 04/05/2016 3:02 PM EST Narrative [facility] - 04/05/2016 7:15 PM EST Report Comments: Received Date: [id number] us Jadon Dunn MD LAB BLOOD ORDERABLES Final Res ult [employer] [address], [place] [address], [place] [phone] * COLONOSCOPY (11/02/2015 11:14 AM EDT) Narrative [...] and oxygen saturations were monitored continuously. 

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
--- OUTSIDE RECORDS SUMMARY | 2024-04-10 15:48 | XMS_ITS | Encounter Summary ---
Author Organization [facility] Address [address] [place] [address] Care Team Providers Care Assistant Director Of Public Works Name Role Phone Jadon Dunn MD Primary Care Provider Encounter Details Date Type Department Care Team (Late st Contact Info) Description 04/06/2024 External Contact [facility] 85 [place] Pulmonology 85 [facility] [address] [place] [address] Hardeep Mayers MD [address] [phone] GONSALO (obstructive sleep apnea) [G47.33] (Primary Dx) Social History Tobacco Use Types Packs/Day Years Used Date Smoking Tobacco: Never Smokeless Tobacco: Never Comments:: Alcohol Use Standard Drinks/Week Comments Yes 0 (1 standard drink = 0.6 oz pur e alcohol) holidays [facility] Utilities Answer Date Recorded In the past 12 months has [employer], gas, oil, or water [employer] threatened to shut off services in your [...] Description 04/12/2024 3:30 PM EST Office Visit [facility] Neurology Clinic [address] [place] [address] Luz Felix MD [address] [place] [address] 06/05/2024 1:30 PM EDT Office Visit [facility] B [address] [place] [address] Timo Payne MD [address] [place] [address] 06/19/2024 2:00 PM EDT Follow-Up [facility] Endocrinology Clinic [address] [place] [address] Roentgenologist: Anna Moody MD [address] [place] [address] 07/16/2024 8:00 AM EDT Appointment [facility] Cardiac Ultrasound [address] [place] [address] 07/16/2024 9:00 AM EDT Follow-Up [address] floor Cardiology Medicine 55 [place] [address] Roentgenologist: Iveth Padron 02/10/2025 4:40 PM EST Follow-Up [address] floor Cardiology Medicine [address] [place] [address] Roentgenologist: Angely Yancey MD 55 [place] [address] 04/08/2025 10:45 AM EST Follow-Up [facility] 85 [place] Pulmonology [address] [place] [address] Hardeep Mayers MD [address] [address] documented as of this encounter Visit Diagnoses Diagnosis GONSALO (obstructive sleep apnea) [G47.33]- Primary Obstructive sleep apnea (adult) (pediatric) documented in this encounter Care Teams Assistant Director Of Public Works Relationship Specialty Start Date End Date Jadon Dunn MD [address] [place] [address] PCP - General Family Medicine 08/25/16 documented as of this encounter
--- OUTSIDE RECORDS SUMMARY | 2024-04-10 15:48 | XMS_ITS | Encounter Summary ---
Author Organization [facility] Address [address] [place] [address] Care Team Providers Care Leather Cleaner Name Role Phone Jadon Dunn MD Primary Care Provider [phone] Encounter Details Date Type Department Care Team (Late st Contact Info) Description 04/02/2024 Telephone [facility] 85 [place] Pulmonology [address] [phone] Hardeep Mayers MD [address] [phone] Social History Tobacco Use Types Packs/Day Years Used Date Smoking Tobacco: Never Smokeless Tobacco: Never Comments:: Alcohol Use Standard Drinks/Week Comments Yes 0 (1 standard drink = 0.6 oz pur e alcohol) holidays [facility] Utilities Answer Date Recorded In the past 12 months has e [employer], gas, oil, or water [employer] threatened to shut off services in your [...] encounter Miscellaneous Notes * Telephone Encounter - Hardeep Mayers MD - 04/02/2024 4:03 PM EST Thanks Will put it in after HST Looking to see how things are post weight loss * Telephone Encounter - Hardeep Mayers MD - 04/02/2024 4:02 PM EST ----- Message from Mamta Webster CMA sent at 04/02/2024 2:55 PM EST ----- Email from Iliana- Juan Pablo Oleary, Yes, looks like he's eligible for a replacement as of this month. ----- Message ----- From: Hardeep Mayers MD Sent: 04/02/2024 11:26 AM EST To: 85 [facility] Clinical Staff Please ask P/RR if we can convert him from [employer] to [facility] for a replacment PAP Thanks documented in this encounter Plan of Treatment Upcoming Encounters Date Type Department Care Team (Late st Contact Info) Description 04/12/2024 3:30 PM EST Office Visit [facility] Neurology Clinic [address] [place] [address] Luz Felix MD [address] [place] [address] 06/05/2024 1:30 PM EDT Office Visit [facility] B [address] [place] [address] Timo Payen MD 119 [place] [address] 06/19/2024 2:00 PM EDT Follow-Up [facility] Endocrinology Clinic [address] [place] [address] Broach Grinder: Anna Moody MD 55 [place] [address] 07/16/2024 8:00 AM EDT Appointment [facility] Cardiac Ultrasound [address] [place] [address] 07/16/2024 9:00 AM EDT Follow-Up [facility] 4th floor Cardiology Medicine [address] [place] [address] Broach Grinder: Iveth Padron 02/10/2025 4:40 PM EST Follow-Up [facility] 4th floor Cardiology Medicine [address] [place] [address] Broach Grinder: Angely Yancey MD [address] [place] [address] 04/08/2025 10:45 AM EST Follow-Up [facility] [address] [place] Pulmonology [address] [place] [address] Hardeep Mayers MD [address] [address] documented as of this encounter Visit Diagnoses Not on filedocumented in this encounter Care Teams Leather Cleaner Relationship Specialty Start Date End Date Jadon Dunn MD [address] [place], [place] [phone] PCP - General Family Medicine 08/25/16 documented as of this encounter
--- OUTSIDE RECORDS SUMMARY | 2024-04-10 15:48 | XMS_ITS | Encounter Summary ---
Author Organization [facility] Address [address] [place] [address] Care Team Providers Care Graphic Artist Name Role Phone Jadon Dunn MD Primary Care Provider [phone] Reason for Visit * Reason Onset Date Comments PAC Appt Request - Established- Luz Felix MD 03/01/2024 Encounter Details Date Type Department Care Team (Late st Contact Info) Description 03/01/2024 Telephone [facility] Neurology Clinic [address] [place] [phone] Telephone Intake, Staff PAC Appt Request - Gerardo- Luz Felix MD Social History Tobacco Use Types Packs/Day Years Used Date Smoking Tobacco: Never Smokeless Tobacco: Never Comments:: Alcohol Use Standard Drinks/Week Comments Yes 0 (1 standard drink = 0.6 oz pur e alcohol) holidays [facility] Utilities Answer Date Recorded In the past 12 months has [employer], gas, oil, or water [employer] threatened to shut off services in your [...] Please reach to Sean bah reschedule. # [phone] documented in this encounter Plan of Treatment Upcoming Encounters Date Type Department Care Team (Late st Contact Info) Description 04/12/2024 3:30 PM EST Office Visit [facility] Neurology Clinic [address] [place] [address] Luz Felix MD 26 [place] [address] 06/05/2024 1:30 PM EDT Office Visit [facility] B [address] [place] [address] Timo Payne MD 119 [place] [address] 06/19/2024 2:00 PM EDT Follow-Up [facility] Endocrinology Clinic 55 [place] [address] Filter Press Operator: Anna Moody MD [address] [place] [address] 07/16/2024 8:00 AM EDT Appointment [facility] Cardiac Ultrasound 55 [place] [address] 07/16/2024 9:00 AM EDT Follow-Up [facility] 4th floor Cardiology Medicine [address] [place] [address] Filter Press Operator: Iveth Padron 02/10/2025 4:40 PM EST Follow-Up [facility] 4th floor Cardiology Medicine [address] [place] [address] Filter Press Operator: Angely Yancey MD [address] [place] [address] 04/08/2025 10:45 AM EST Follow-Up [facility] [address] [place] [address] [address] Hardeep Mayers MD [address] [address] documented as of this encounter Visit Diagnoses Not on filedocumented in this encounter Care Teams Graphic Artist Relationship Specialty Start Date End Date Jadon Dunn MD [address] [place] [address] PCP - General Family Medicine 08/25/16 documented as of this encounter
--- OUTSIDE RECORDS SUMMARY | 2024-04-10 15:48 | XMS_ITS | Encounter Summary ---
Author Organization [facility] Address [address] [place] [address] Care Team Providers Care Blood Bank Booking Clerk Name Role Phone Jadon Dunn MD Primary Care Provider [phone] Reason for Visit * Reason Onset Date Comments HST Results - CPAP 04/06/2024 Encounter Details Date Type Department Care Team (Late st Contact Info) Description 04/06/2024 Telephone [facility] 85 [place] Pulmonology [address] [phone] Hardeep Mayers MD [address] [phone] HST Results - CPAP Social History Tobacco Use Types Packs/Day Years [...] encounter Miscellaneous Notes * Telephone Encounter - Solange Sandoval CMA - 04/08/2024 8:27 AM EST Pt informed. Faxed to [facility] * Telephone Encounter - Hardeep Mayers MD - 04/06/2024 3:41 PM EST Please call re: HST Better with weight loss but still significant. Replacement cpap ordered [facility] Thanks documented in this encounter Plan of Treatment Upcoming Encounters Date Type Department Care Team (Late st Contact Info) Description 04/12/2024 3:30 PM EST Office Visit [facility] Neurology Clinic [address] [place] [address] Luz Felix MD 26 [place] [address] 06/05/2024 1:30 PM EDT Office Visit [facility] B [address] [place] [address] Timo Payne MD 119 [place] [address] 06/19/2024 2:00 PM EDT Follow-Up [facility] Endocrinology Clinic 55 [place] [address] Account Executive Key Accounts: Anna Moody MD 55 [place] [address] 07/16/2024 8:00 AM EDT Appointment [facility] Cardiac Ultrasound [address] [place] [address] 07/16/2024 9:00 AM EDT Follow-Up [facility] 4th floor Cardiology Medicine [address] [place] [address] Account Executive Key Accounts: Iveth Padron 02/10/2025 4:40 PM EST Follow-Up [address] floor Cardiology Medicine [address] [place] [address] Account Executive Key Accounts: Angely Yancey MD [address] [place] [address] 04/08/2025 10:45 AM EST Follow-Up [facility] 85 [place] Pulmonology [address] [place] [address] Hardeep Mayers MD [address] [address] documented as of this encounter Visit Diagnoses Diagnosis GONSALO (obstructive sleep apnea)- Primary Obstructive sleep apnea (adult) (pediatric) documented in this encounter Care Teams Blood Bank Booking Clerk Relationship Specialty Start Date End Date Jadon Dunn MD [address] [place] [address] PCP - General Family Medicine 08/25/16 documented as of this encounter
--- OUTSIDE RECORDS SUMMARY | 2024-04-10 15:48 | XMS_ITS | Clinical Summary ---
Author Organization [facility] Address [address] [place] [address] Care Team Providers Care Caregiver Services Home Name Role Phone Unavailable Primary Care Provider [...] Date of Phone Billing Address Personal/Family [address] [place] [address] MEDICARE PART B [facility] MEDICARE-SUPPLEMENTAL
--- OUTSIDE RECORDS SUMMARY | 2024-04-10 15:48 | XMS_ITS | Encounter Summary ---
Author Organization [facility] Address [address] [place] [address] Care Team Providers Care Derrick Worker Well Service Name Role Phone Jadon Dunn MD Primary Care Provider [phone] Encounter Details Date Type Department Care Team (Late st Contact Info) Description 03/01/2024 myChart Message [facility] Family Practice [address] [place] [phone] Jadon Dunn MD [address] [place] [address] Refill needed on tramadol Social History Tobacco Use Types Packs/Day Years Used Date Smoking Tobacco: Never Smokeless Tobacco: Never Comments:: Alcohol Use Standard Drinks/Week Comments Yes 0 (1 standard drink = 0.6 oz pur e alcohol) holidays [facility] Utilities Answer Date Recorded In the past 12 months has e [employer], gas, oil, or water [employer] threatened to shut off services in your [...] Description 04/12/2024 3:30 PM EST Office Visit [facility] Neurology Clinic 55 [place] [address] Luz Felix MD 26 [place] [address] 06/05/2024 1:30 PM EDT Office Visit [facility] B [address] [place] [address] Timo Payne MD 119 [place] [address] 06/19/2024 2:00 PM EDT Follow-Up [facility] Endocrinology Clinic 55 [place] [address] Dried Yeast Supervisor: Anna Moody MD [address] [place] [address] 07/16/2024 8:00 AM EDT Appointment [facility] Cardiac Ultrasound 55 [place] [address] 07/16/2024 9:00 AM EDT Follow-Up [facility] 4th floor Cardiology Medicine 55 [place] [address] Dried Yeast Supervisor: Iveth Padron 02/10/2025 4:40 PM EST Follow-Up [facility] 4th floor Cardiology Medicine 55 [place] [address] Dried Yeast Supervisor: Angely Yancey MD 55 [place] [address] 04/08/2025 10:45 AM EST Follow-Up [facility] 85 [place] Pulmonology [address] [place] [address] Hardeep Mayers MD [address] [address] documented as of this encounter Visit Diagnoses Not on filedocumented in this encounter Care Teams Derrick Worker Well Service Relationship Specialty Start Date End Date Jadon Dunn MD 604 [place] [address] PCP - General Family Medicine 08/25/16 documented as of this encounter
--- OUTSIDE RECORDS SUMMARY | 2024-04-10 15:48 | XMS_ITS | Encounter Summary ---
Author Organization [facility] Address [address] [place] [address] Care Team Providers Care [place] Mayonnaise Name Role Phone Jadon Dunn MD Primary Care Provider [phone] Encounter Details Date Type Department Care Team (Late st Contact Info) Description 04/03/2024 Rehab Management Services Message [facility] [address] [place] [address]mon[address] [place] [address] Mychart, Generic Provider [address] [place] [address] APPOINTMENT Social History Tobacco Use Types Packs/Day Years Used Date Smoking Tobacco: Never Smokeless Tobacco: Never Comments:: Alcohol Use Standard Drinks/Week Comments Yes 0 (1 standard drink = 0.6 oz pur e alcohol) holidays [facility] Utilities Answer Date Recorded In the past 12 months has e electric, gas, oil, or water company [...] Description 04/12/2024 3:30 PM EST Office Visit [facility] Neurology Clinic [address] [place] [address] Luz Felix MD [address] [place] [address] 06/05/2024 1:30 PM EDT Office Visit [facility] B [address] [place] [address] Timo Payne MD [address] [place] [address] 06/19/2024 2:00 PM EDT Follow-Up [facility] Endocrinology Clinic [address] [place] [address] Acoustical Tile Drill Press Operator: Anna Moody MD [address] [place] [address] 07/16/2024 8:00 AM EDT Appointment [facility] Cardiac Ultrasound [address] [place] [address] 07/16/2024 9:00 AM EDT Follow-Up [facility] 4th floor Cardiology Medicine [address] [place] [address] Acoustical Tile Drill Press Operator: Iveth Padron 02/10/2025 4:40 PM EST Follow-Up [facility] 4th floor Cardiology Medicine [address] [place] [address] Acoustical Tile Drill Press Operator: Angely Yancey MD [address] [place] [address] 04/08/2025 10:45 AM EST Follow-Up [facility] [address] [place] Pul[address] 85 [facility] [address] [place] [address] Hardeep Mayers MD [address] [address] documented as of this encounter Visit Diagnoses Not on filedocumented in this encounter Care Teams [place] Mayonnaise Relationship Specialty Start Date End Date Jadon Dunn MD 604 [place] [address] PCP - General Family Medicine 08/25/16 documented as of this encounter
--- OUTSIDE RECORDS SUMMARY | 2024-04-10 15:48 | XMS_ITS | Clinical Summary ---
Author Organization [facility] Address [address] [place] [address] Care Team Providers Care Hand Winder Name Role Phone Jadon Dunn MD Primary Care Provider [phone] Allergies No known active allergies Medications * [...] spine. Will obtain labs. Venous duplex in [place] demonstrated no sign of a DVT so [...] maintenance issues. Advanced directive is recorded in epic Assessment & Plan (07/14/2020 1:39 PM EDT): [...] day. He should schedule follow-up with his roller inspector and mender. Assessment & Plan (06/20/2023 9:34 AM EDT): [...] Unsure if this is because of his semi-penitentiary or because of insufficient sleep. Will refer [...] diagnosed with essential tremor years ago by [facility] neurology Assessment & Plan (07/14/2021 3:15 PM [...] Department Care Team Description 04/08/2024 Orders Only [facility] [address] [place] [address] Provider, MD Tommy 04/06/2024 External Contact [facility] [address] [place] [phone] Hardeep Mayers MD GONSALO (obstructive sleep apnea) [G47.33] (Primary Dx) 04/06/2024 Telephone [facility] [address] [place] [address] Hardeep Mayers MD HST Results - CPAP 04/03/2024 myChart Message [facility] [address] [place] [address] Mychart, Generic Provider APPOINTMENT 04/02/2024 10:45 AM EST Follow-Up [facility] [address] 85 [facility] [address] [place] [address] Hardeep Mayers MD GONSALO (obstructive sleep apnea) (Primary Dx) 04/02/[address] Pulmonology 85 [facility] [address] [place] [address] Hardeep Mayers MD 03/09/[address] [address] Jadon Dunn MD 03/01/2024 myChart Message [address] [address] Jadon Dunn MD Refill needed on tramadol 03/01/[address] [address] Jadon Dunn MD Spinal stenosis, unspecified spinal region (Primary Dx) 03/01/2024 Orders Only [address] [address] Jadon Dunn MD 03/01/2024 Telephone [facility] [address] [place] [address] Telephone Intake, Staff PAC Appt Request - Established- Luz Felix MD 02/28/2024 Orders Only [address] [phone] Jadon Dunn MD Spinal stenosis, unspecified spinal region (Primary Dx) 02/28/[address] [phone] Jadon Dunn MD 02/22/2024 Documentation [facility] [address] [place] [phone] Jadon Dunn MD 02/20/[address] [address] Jadon Dunn MD 01/29/2024 Documentation [facility] [address] [place] [phone] Jadon Dunn MD 01/29/[address] [address] Jadon Dunn MD 01/18/2024 myChart Message [address] [address] Jadon Dunn MD labs look great 01/16/2024 3:00 PM EST Office Visit [address] [address] Jadon Dunn MD Acute neuritis (Primary Dx); Alzheimer's disease (HCC); Graves' disease from Last 3 Months Immunizations Immunization Administration Dates Next Due COVID-19, Pfizer, mRNA, Biva lent Booster, PF, 30 mcg/0.3 mL dose (for age 12 y and up) 06/21/2022 Covid-19, Moderna, mRNA, Vac cine, PF, 50 mcg/0.5 mL (for age 12 y and up) 10/14/2023,10/30/2022 Covid-19, Pfizer, mRNA, Orange valent, PF 30 mcg/0.3 mL dose (for [...] Vaccine, 23 Valent 04/03/2013 Pneumococcal conjugate PCV20,polysaccharide CLN016 conjugate, adjuvant, PF (Prevnar 20) 11/27/2022 RSV, [...] = 0.6 oz pur e alcohol) holidays [facility] Utilities Answer Date Recorded In the past 12 months has th e [employer], gas, oil, or water [employer] threatened to shut off services in your [...] Description 04/12/2024 3:30 PM EST Office Visit [facility] [address] [place] [address] Luz Felix MD [address] [place] [address] 06/05/2024 1:30 PM EDT Office Visit [facility] B [address] [place] [address] Timo Payne MD [address] [place] [address] 06/19/2024 2:00 PM EDT Follow-Up [facility] Endocrinology Clinic [address] [place] [address] Equipment Oiler: Anna Moody MD [address] [place] [address] 07/16/2024 8:00 AM EDT Appointment [facility] Cardiac Ultrasound [address] [place] [address] 07/16/2024 9:00 AM EDT Follow-Up [facility] 4th floor Cardiology Medicine [address] [place] [address] Equipment Oiler: Iveth Padron 02/10/2025 4:40 PM EST Follow-Up [facility] 4th floor Cardiology Medicine [address] [place] [address] Equipment Oiler: Angely Yancey MD [address] [place] [address] 04/08/2025 10:45 AM EST Follow-Up [facility] [address] [place] [address] Hardeep Mayers MD [address] [address] Health Maintenance Due Date Last Done Comments Alcohol/Substance Use Screening 02/07/2024 Fall Risk Screening 02/07/2024 09/04/2019 COVID-19 Vaccine (2023- 5 season) 2024 10/14/2023, 10/30/2022, 06/21/2022, Additional history exists Basic Metabolic Panel 01/16/2025 01/17/2024 , 06/21/2023, 06/20/2023, Additional history exists DTaP,Tdap,and Td Vaccines (4 - Td or Tdap) 06/21/2032 06/21/2022, 02/22/2012, 12/04/1992 Tobacco Screening 02/06/2042 04/02/2024 Hepatitis C Screening Completed 04/05/2016 Zoster Vaccines Completed 10/16/2018, 06/07, 03/09/2013 Colon Cancer Screening Discontinued Colonoscopy Discontinued 05/10/2022, 05/2022, 11/02/2015, Additional history exists RSV Vaccine (60+ years old a nd patients) Completed 11/10/2022 Pneumococcal Vaccine: 50+ Years Completed 11/27/2022, 12/14/2018, 11/17/2015, Additional history exists Statin Therapy Completed 03/28/2023 Influenza Vaccine Completed 10/14/2023, , 10/30/2022, Additional history exists Depression Screening and Follow-Up Discontinued 01/16/2024 Cologuard Discontinued FOBT / Fit Test Discontinued Health Care Proxy Review Discontinued Hepatitis B Vaccines Discontinued Sigmoidoscopy Discontinued Social Drivers of Health [facility] Screening Discontinued Medical Devices Implanted Type Area Fire Chief Deputy Device Identifier Shelf Expiration Date Model / Serial / Lot System Closure And Repair Suture-Mediated Perclose Prostyle - S0 - [id number] Implanted:Qty: 1 on 06/20/2023 by Tina Reyes MD at [facility] Implant Right: Groin [employer] [id number] 03/08/2025 [id number] / 0 / [id number] System Closure And Repair Suture-Mediated Perclose Prostyle - S0 - [id number] Implanted:Qty: 1 on 06/20/2023 by Tina Reyes MD at [facility] Implant Right: Groin [employer] [id number] 03/08/2025 [id number] / 0 / [id number] Device Closure Vascular Plug 6fr Angio-Seal Vip - S0 - [id number] Implanted:Qty: 1 on 06/20/2023 by Tina Reyes MD at [facility] Implant Left: Groin [employer] [id number] 12/23/2023 [id number] / 0 / [id number] 91 Valve Heart Transcatheter With Commander System 26mm Quintana Leah 3 Ultra Resilia - [id number] - [id number] Implanted:Qty: 1 on 06/20/2023 by Tina Reyes MD at [facility] Tissue N/A: Heart [employer] 09/26/2025 [id number] / [id number] / Explanted Type Area Fire Chief Deputy Device Identifier Shelf Expiration Date Model / Serial / Lot Catheter Femoral Insertion [place] J-Tip 5fr 90cm - S0 - [id number] Explanted:Qty: 1 on 06/20/2023 by Tina Reyes MD at [facility] Catheter Left: Vein [employer] [id number] 12/25/2024 [id number] / 0 / [id number] Procedures * Due to [place] state law, this organization might not be [...] EST Acute neuritis [facility], ANTIBODY [id number] Routine 01/17/2024 1:57 PM EST Acute neuritis [...] to Health Maintenance Results * Due to [place] state law, this organization might not be [...] obtain the completed interpretation. ? Workstation ID: [id number] Narrative 02/27/2024 11:01 AM EST INDICATION: Severe [...] of the paraspinal musculature. Resulting Agency Comment [id number] Procedure Note Benjamin Chamorro MD - 02/27/2024 [...] possible to obtain thecompleted interpretation. Workstation ID: [id number] us Jadon Dunn MD IMG MRI PROCEDURES Final Resul t * IMAGING - SCANNED (02/25/2024) Anatomical Region Laterality Modality Other us Onbase Scan Radha SCANNED PROCEDURES Final Resu lt * Vitamin B12 & Folate (01/17/2024 1:57 PM EST) Vitamin B12 450 200 - 1,100 pg/mL 01/18/2024 3:52 AM EST [employer] Folate, Serum 18.5 ng/mL 01/18/2024 3:52 AM EST [employer] Comment: ? Reference Range ? Low: ? <3.4 ? Borderline: ?3.4-5.4 ? Normal: ?>5.4 01/17/2024 1:57 PM EST 01/18/2024 2:54 AM EST Narrative [facility] - 01/24/2024 1:58 PM EST FASTING:NO us Jadon Dunn MD LAB BLOOD ORDERABLES Final Res ult [facility] [address] [facility] 3rd Floor, [place] [address], [employer] [facility] [address] [place] [address] * Tick-borne disease, antibody (01/17/2024 1:57 PM EST) A. Phagocytophilum IGG <1:64 <1:64 01/24/2024 1:51 PM EST [facility] A. Phagocytophilum IGM <1:20 <1:20 01/24/2024 1:51 PM EST [facility] Interpretation ANTIBODY NOT DETECTED 01/24/2024 1:51 PM EST [facility] Comment See Comments 01/24/2024 1:51 PM EST [facility] Comment: Anaplasma phagocytophilum is the tick-borne agent causing Human Granulocytic Ehrlichiosis (HGE). HGE is distinct and separate from Human Monocytic Ehrlichiosis (HME), caused by Ehrlichia chaffeensis. Serologic cross-reactivity between A. phagocytophilum and E. Chaffeensis is minimal (5-15%). This test was developed and its performance characteristics have been determined by [employer] It has not been cleared or approved by the U.S. Food and Drug Administration. This assay has been validated pursuant to the CLIA regulations and is used for clinical purposes. WA1 IGG Antibody, IFA <1:256 01/19/2024 6:09 PM EST [facility] Comment: REFERENCE RANGE: ??<1:256 ?INTERPRETIVE CRITERIA: ? <1:256 Antibody not detected ? > or = 1:256 Antibody detected Babesia duncani, also known as WA1, has been associated with symptoms similar to those caused by Babesia microti. Little, if any, cross-reactivity occurs between Babesia microti and WA1. This test was developed and its analytical performance characteristics have been determined by [employer] It has not been cleared or approved by FDA. This assay has been validated pursuant to the CLIA regulations and is used for clinical purposes. Babesia Microti IgG <1:64 <1:64 titer 01/19/2024 11:31 PM EST [facility] Comment: This test was developed and its analytical performance characteristics have been determined by [employer] It has not been cleared or approved by the FDA. This assay has been validated pursuant to the CLIA regulations and is used for clinical purposes. Babesia Microti IgM <1:20 <1:20 titer 01/19/2024 11:31 PM EST [employer] Comment: This test was developed and its analytical performance characteristics have been determined by [employer] It has not been cleared or approved by the FDA. This assay has been validated pursuant to the CLIA regulations and is used for clinical purposes. Interpretation See Comments 01/19/2024 11:31 PM EST [employer] Comment: ANTIBODY NOT DETECTED Elevated antibody [...] Screen <0.90 index 01/18/2024 5:27 AM EST [employer] Comment: ? Index ?Interpretation ? ----- [...] IGG <1:64 <1:64 01/06 6:49 AM EST [facility] E. Chaffeensis AB IGM <1:20 <1:20 01/22/2024 6:49 AM EST [facility] Interpretation ANTIBODY NOT DETECTED 01/22/2024 6:49 AM EST [facility] Comment See Comments 01/22/2024 6:49 AM EST [facility] Comment: Ehrlichia chaffeensis has been identified [...] its performance characteristics have been determined by [employer] It has not been cleared or approved by the U.S. Food and Drug Administration. This assay has been validated pursuant to the CLIA regulations and is used for clinical purposes. Blood Structure of peripheral vein / Unknown 01/17/2024 1:57 PM EST 01/18/2024 1:30 AM EST Narrative [facility] - 01/24/2024 1:58 PM EST FASTING:NO us aJdon Dunn MD LAB BLOOD ORDERABLES Final Res ult [facility] [address] [facility] 3rd Floor, [place] [address], [facility] [address] [place] [address] [facility] [address] [place] [address] * CBC Auto Differential (01/17/2024 1:57 PM EST) [facility] White Blood Cell Count 8.9 3.8 - 10.8 Thousand/ uL 01/18/2024 6:22 AM EST [employer] [facility] Red Blood Cell Count 4.75 4.20 - 5.80 Million/u L 01/18/2024 6:22 AM EST [facility] Hemoglobin 14.9 13.2 - 17.1 g/dL 01/18/2024 6:22 AM EST [facility] Hematocrit 43.6 38.5 - 50.0 % 01/18/2024 6:22 AM EST [facility] MCV 91.8 80.0 - 100.0 fL 01/18/2024 6:22 AM EST [facility] MCH 31.4 27.0 - 33.0 pg 01/18/2024 6:22 AM EST [facility] MCHC 34.2 32.0 - 36.0 g/dL 01/18/2024 6:22 AM [employer] [facility] Comment: For adults, a slight decrease in the calculated MCHC value (in the range of 30 to 32 g/dL) is most likely not clinically significant; however, it should be interpreted with caution in correlation with other red cell parameters and the patient's clinical condition. RDW 13.1 11.0 - 15.0 % 01/18/2024 6:22 AM EST [employer] [facility] Platelet Count 223 140 - 400 Thousand/ uL 01/18/2024 6:22 AM EST [facility] MPV 10.5 7.5 - 12.5 fL 01/18/2024 6:22 AM [employer] [facility] Absolute Neutrophils 6,542 1,500 - 7,800 cells/uL 01/18/2024 6:22 AM EST [facility] Absolute Lymphocytes 1,469 850 - 3,900 cells/uL 01/18/2024 6:22 AM EST [facility] Absolute Monocytes 641 200 - 950 cells/uL 01/18/2024 6:22 AM EST [employer] [facility] Absolute Eosinophils 160 15 - 500 cells/uL 01/18/2024 6:22 AM EST [facility] Absolute Basophils 89 0 - 200 cells/uL 01/18/2024 6:22 AM EST [facility] Neutrophils 73.5 % 01/18/2024 6:22 AM EST [facility] Lymphocytes 16.5 % 01/18/2024 6:22 AM EST [facility] Monocytes 7.2 % 01/18/2024 6:22 AM EST [facility] Eosinophils 1.8 % 01/18/2024 6:22 AM EST [facility] Basophils 1.0 % 01/18/2024 6:22 AM EST [facility] Blood Structure of peripheral vein / Unknown 01/17/2024 1:57 PM EST 01/18/2024 5:31 AM EST Narrative [facility] - 01/24/2024 1:58 PM EST FASTING:NO us Jadon Dunn MD LAB BLOOD ORDERABLES Final Res ult Performing Organization Address City/[facility]/ZIP Co de Phone Number [facility] [address], [place] [address], [place] [phone] [facility] [address] [address] * Sedimentation rate, automated (01/17/2024 1:57 PM EST) Sed Rate By Modified Zebergren 11 0 - 20 mm/h 01/18/2024 6:40 AM EST [facility] Blood Structure of peripheral vein / Unknown 01/17/2024 1:57 PM EST 01/18/2024 4:53 AM EST Narrative [facility] - 01/24/2024 1:58 PM EST FASTING:NO us Jadon Dunn MD LAB BLOOD ORDERABLES Final Res ult Performing Organization Address City/[facility]/ZIP Co de Phone Number [facility] [address], [facility] [place] [address], [place] [phone] [facility] [address] [place] [address] * C-Reactive Protein (01/17/2024 1:57 PM EST) C-Reactive Protein 4.6 <8.0 mg/L 01/18/2024 5:21 AM [employer] Blood Structure of peripheral vein / Unknown 01/17/2024 1:57 PM EST 01/18/2024 2:54 AM EST Narrative [facility] - 01/24/2024 1:58 PM EST FASTING:NO us Jadon Dunn MD LAB BLOOD ORDERABLES Final Res ult [facility] [address] [facility] 3rd Floor, [place] [address], [employer] [address] [place] [address] * Comprehensive Metabolic Panel (01/17/2024 1:57 PM EST) Pathologist [facility] Glucose 127 65 - 139 mg/dL 01/18/2024 9:21 AM [employer] Comment: ? Non-fasting reference interval BUN 17 7 - 25 mg/dL 01/18/2024 9:21 AM [employer] Creatinine 0.87 0.70 - 1.28 mg/dL 01/18/2024 9:21 AM [employer] eGFR 90 > OR = 60 mL/min/1. 73m2 01/18/2024 9:21 AM [employer] Bun/Creatinine Ratio SEE NOTE: (calc) 01/18/2024 9:21 AM [employer] Comment: ?? Not Reported: BUN and Creatinine are within ?? reference range. ? Sodium 145 135 - 146 mmol/L 01/18/2024 9:21 AM [employer] Potassium 4.2 3.5 - 5.3 mmol/L 01/18/2024 9:21 AM [employer] Chloride 109 98 - 110 mmol/L 01/18/2024 9:21 AM [employer] Carbon Dioxide 26 20 - 32 mmol/L 01/18/2024 9:21 AM [employer] Calcium 9.5 8.6 - 10.3 mg/dL 01/18/2024 9:21 AM [employer] Protein, Total 7.1 6.1 - 8.1 g/dL 01/18/2024 9:21 AM [employer] Albumin 4.7 3.6 - 5.1 g/dL 01/18/2024 9:21 AM EST [facility] Globulin 2.4 1.9 - 3.7 g/dL (calc) 01/18/2024 9:21 AM EST [facility] Albumin/Globuli n Ratio 2.0 1.0 - 2.5 (calc) 01/18/2024 9:21 AM EST [facility] Bilirubin, Total 1.0 0.2 - 1.2 mg/dL 01/18/2024 9:21 AM EST [facility] Alkaline Phosphatase 56 35 - 144 U/L 01/18/2024 9:21 AM EST [facility] AST 13 10 - 35 U/L 01/18/2024 9:21 AM EST [facility] ALT 15 9 - 46 U/L 01/18/2024 9:21 AM EST [facility] Blood Structure of peripheral vein / Unknown 01/17/2024 1:57 PM EST 01/18/2024 2:54 AM EST Narrative [facility] - 01/24/2024 1:58 PM EST FASTING:NO us Jadon Dunn MD LAB BLOOD ORDERABLES Final Res ult [facility] [address] [facility] 3rd [address], [place] [address], [facility] [address] [place] [address] * Hepatitis Panel, Acute (04/05/2016 11:38 AM EST) Hepatitis A IgM NON-REACT LUCA NON-REACT LUCA [facility] Hepatitis B Surface Antigen NON-REACT LUCA NON-REACT LUCA [facility] Hepatitis B Core Antibody NON-REACT LUCA NON-REACT LUCA [facility] Hepatitis C Antibody NON-REACT LUCA NON-REACT LUCA [facility] Signal To Cut-Off 0.01 <1.00 [facility] 04/05/2016 11:3 8 AM EST 04/05/2016 3:02 PM EST [facility] [employer] [facility] - 04/05/2016 7:15 PM EST Report Comments: Received Date: [id number] us Jadon Dunn MD LAB BLOOD ORDERABLES Final Res ult [facility] [address], [place] [address], [place] [phone] * COLONOSCOPY (11/02/2015 11:14 AM EDT) Narrative [...] and oxygen saturations were monitored continuously. The [id number] was introduced through the anus and advanced [...] Recently Relevant to Health Maintenance Insurance MEDICARE [facility] Advance Directives Documents on File Type Date Recorded Patient Cylinder Devalver Expl anation Health Care Proxy 01/16/2024 3:17 [...] Son Alternate Health Care Agent Care Teams Hand Winder Relationship Specialty Start Date End Date Jadon Dunn MD [address] [place] [phone] PCP - General Family Medicine 08/25/16
--- OUTSIDE RECORDS SUMMARY | 2024-04-10 15:48 | XMS_ITS | Encounter Summary ---
Author Organization [facility] Address [address] [place] [address] Care Team Providers Care Supervisor Plastic Sheets Name Role Phone Jadon Dunn MD Primary Care Provider [phone] Encounter Details Date Type Department Care Team (Latest Contact Info) Description 03/09/2023 Riskclick Message [facility] Heart [facility] Vascular Interventional Lab [address] [place] [phone] Mychart, Generic Provider [address] [place], [place] [phone] Pre-procedure instructions/ Coronary angiography Social History Tobacco [...] Description 04/12/2024 3:30 PM EST Office Visit [facility] [address] [place] [address] Luz Felix MD [address] [place] [address] 06/05/2024 1:30 PM EDT Office Visit [facility] B [address] [place] [address] Timo Payne MD [address] [place] [address] 06/19/2024 2:00 PM EDT Follow-Up [facility] Endocrinology Clinic [address] [place] [address] Supervisor Type Bar And Segment: Anna Moody MD [address] [place] [phone] 07/16/2024 8:00 AM EDT Appointment [facility] Cardiac Ultrasound [address] [place] [address] 07/16/2024 9:00 AM EDT Follow-Up [facility] 4th floor Cardiology Medicine [address] [place] [address] Supervisor Type Bar And Segment: Iveth Padron 02/10/2025 4:40 PM EST Follow-Up [facility] 4th floor Cardiology Medicine [address] [place] [address] Supervisor Type Bar And Segment: Angely Yancey MD [address] [place] [address] 04/08/2025 10:45 AM EST Follow-Up [facility] [address] [place] [facility] [address] [place] [address] Hradeep Mayers MD [address] [address] documented as of this encounter Visit Diagnoses Not on filedocumented in this encounter Care Teams Supervisor Plastic Sheets Relationship Specialty Start Date End Date Jadon Dunn MD [address] [place] [address] PCP - General Family Medicine 08/25/16 documented as of this encounter
--- OUTSIDE RECORDS SUMMARY | 2024-04-10 15:48 | XMS_ITS | Encounter Summary ---
Author Organization [facility] Address [address] [place] [address] Care Team Providers Care Bog Worker Name Role Phone Jadon Dunn MD Primary Care Provider [phone] Encounter Details Date Type Department Care Team (Late st Contact Info) Description 07/03/2021 myChart Message [facility] [address] [place] [address] Mychart, Generic Provider [address] [place], [place] [phone] Follow up appointment requested Social History Tobacco [...] Description 04/12/2024 3:30 PM EST Office Visit [facility] Neurology Clinic [address] [place] [address] [phone] Luz Felix MD [address] [place] [address] 06/05/2024 1:30 PM EDT Office Visit [facility] B [address] [place] [address] Timo Payne MD [address] [place] [address] 06/19/2024 2:00 PM EDT Follow-Up [facility] Endocrinology Clinic [address] [place] [address] Log Scaler: Anna Moody MD [address] [place] [address] 07/16/2024 8:00 AM EDT Appointment [facility] Cardiac Ultrasound [address] [place] [address] 07/16/2024 9:00 AM EDT Follow-Up [facility] 4th floor Cardiology Medicine [address] [place] [address] Log Scaler: Iveth Padron 02/10/2025 4:40 PM EST Follow-Up [facility] 4th floor Cardiology Medicine [address] [place] [address] Log Scaler: Angely Yancey MD [address] [place] [address] 04/08/2025 10:45 AM EST Follow-Up [facility] [address] [place] [facility] [address] [place] [address] Hardeep Mayers MD [address] [address] documented as of this encounter Visit Diagnoses Not on filedocumented in this encounter Care Teams Bog Worker Relationship Specialty Start Date End Date Jadon Dunn MD [address] [place], [place] [phone] PCP - General Family Medicine 08/25/16 documented as of this encounter
--- OUTSIDE RECORDS SUMMARY | 2024-04-10 15:48 | XMS_ITS | Encounter Summary ---
Author Organization [facility] Address [address] [place] [address] Care Team Providers Care Marketing Reps [employer] Name Role Phone Jadon Dunn MD Primary Care Provider [phone] Encounter Details Date Type Department Care Team (Late st Contact Info) Description 04/08/2024 Orders Only [facility] [address] [place] [address] [place] [address] Provider, Unknown, [address] [place] [address] Social History Tobacco Use Types Packs/Day Years Used Date Smoking Tobacco: Never Smokeless Tobacco: Never Comments:: Alcohol Use Standard Drinks/Week Comments Yes 0 (1 standard drink = 0.6 oz pur e alcohol) holidays [facility] Utilities Answer Date Recorded In the past 12 months has e electric, gas, oil, or water [employer] threatened to shut off services in your [...] Description 04/12/2024 3:30 PM EST Office Visit [facility] Neurology Clinic [address] [place] [address] Luz Felix MD [address] [place] [address] 06/05/2024 1:30 PM EDT Office Visit [facility] B [address] [place] [address] Timo Payne MD [address] [place] [address] 06/19/2024 2:00 PM EDT Follow-Up [facility] Endocrinology Clinic [address] [place] [address] Loop Machine Operator: Anna Moody MD [address] [place] [address] 07/16/2024 8:00 AM EDT Appointment [facility] Cardiac Ultrasound [address] [place] [address] 07/16/2024 9:00 AM EDT Follow-Up [facility] 4th floor Cardiology Medicine [address] [place] [address] Loop Machine Operator: Iveth Padron 02/10/2025 4:40 PM EST Follow-Up [facility] 4th floor Cardiology Medicine [address] [place] [address] Loop Machine Operator: Angely Yancey MD [address] [place] [address] 04/08/2025 10:45 AM EST Follow-Up [facility] 85 [place] [facility] [address] [address] Hardeep Mayers MD [address] [address] documented as of this encounter Procedures * Due to [facility] law, this organization might not be sharing negative HIV tests. Procedure Name Priority Date/Time Associated Diagnosis Comments SLEEP STUDY - SCANNED Routine 04/03/2024 8:11 AM EST documented in this encounter Results * Due to [facility] law, this organization might not be sharing negative HIV tests. * SLEEP STUDY - SCANNED (04/03/2024 8:11 AM EST) us Unknown Provider SCANNED PROCEDURES Final Res ult documented in this encounter Visit Diagnoses Not on filedocumented in this encounter Care Teams [employer] Relationship Specialty Start Date End Date Jadon Dunn MD [address] [place] [address] PCP - General Family Medicine 08/25/16 documented as of this encounter
--- OUTSIDE RECORDS SUMMARY | 2024-04-10 15:49 | XMS_ITS | Encounter Summary ---
Author Organization [facility] Address [address] [place] [address] Care Team Providers Care Larry Operator Name Role Phone Jadon Dunn MD Primary Care Provider [phone] Encounter Details Date Type Department Care Team (Late st Contact Info) Description 01/27/2023 Orders Only [facility] Interventional Radiology [address] [place] [address] [phone] Jenniffer Swanson MD [address] [place] [address] [phone] Social History Tobacco Use Types Packs/Day Years [...] Description 04/12/2024 3:30 PM EST Office Visit [facility] Neurology Clinic [address] [place] [address] Luz Felix MD [address] [place] [address] 06/05/2024 1:30 PM EDT Office Visit [facility] B [address] [place] [address] Timo Payne MD [address] [place] [address] 06/19/2024 2:00 PM EDT Follow-Up [facility] Endocrinology Clinic [address] [place] [address] Diesel Technician: Anna Moody MD [address] [place] [address] 07/16/2024 8:00 AM EDT Appointment [facility] Cardiac Ultrasound [address] [place] [address] 07/16/2024 9:00 AM EDT Follow-Up [facility] 4th floor Cardiology Medicine [address] [place] [address] Diesel Technician: Iveth Padron 02/10/2025 4:40 PM EST Follow-Up [facility] 4th floor Cardiology Medicine [address] [place] [address] Diesel Technician: Iveth Angely Tan MD [address] [place] [address] 04/08/2025 10:45 AM EST Follow-Up [facility] 85 [place] [facility] [address] [address] Hardeep Mayers MD [address] [address] documented as of this encounter Visit Diagnoses Not on filedocumented in this encounter Care Teams Larry Operator Relationship Specialty Start Date End Date Jadon Dunn MD [address] [place] [address] PCP - General Family Medicine 08/25/16 documented as of this encounter
== END 2024-04-10 13:58 | disposition home or self-care (01) ==
PROVIDERS: PCP Family Medicine; Visit Provider Physician Assistant
DX: Z98.890 Other specified postprocedural states (principal)
CPT/HCPCS: 99024

== ENCOUNTER → 2024-04-10 13:15 | Outpatient (BNVA) | payer MEDICARE, SELFPAY | PROVIDERS: PCP Family Medicine; Visit Provider Physician Assistant | DX: Z47.89 Encounter for other orthopedic aftercare (principal); Z98.890 Other specified postprocedural states | CPT/HCPCS: 99212 ==

== ENCOUNTER 2024-05-21 12:38 | Outpatient (AMB) | payer MEDICARE, SELFPAY ==
--- NOTE | 2024-05-21 12:53 | HO.SPINEOV ---
Intake Visit Reasons: 2nd post op Intake Note: Mr. Patel is here today for his 2nd post op. [employer] Operator Required: No Allergies No Known Allergies Allergy (Verified 05/21/24 13:18) Assessment & Plan Assessment & Plan (1) Status post lumbar spine surgery for decompression of spinal cord: Code(s): Z98.890 - Other specified postprocedural states Category: Surgical Plan Procedure: Left L3-4 Laminotomy, Partial facetectomy and foraminotomy; left L5 laminotomy and foraminotomy Sean is a pleasant 74 year old male who underwent left sided L3-[address] Jolly about 2 months ago. He has been doing very well overall since his surgery. He was much more functional than he was prior to his surgery. He has been completing basic activities of daily living around his home, and has been limiting his lifting. He is again accompanied by his to this appointment today, they both asked several questions regarding the postoperative healing course, and weight restrictions. I answered all of his questions to the best of my ability. No new neurological deficits. The patient ambulates well and rises from a seated position without difficulty. His posterior incision site is closed and well healed. There is no need for continued routine follow up with Sean, he may be discharged as a patient. Julian Jolly MD,PhD [facility] Coding Level of Care Code Global (54927) Diagnoses Status post lumbar spine surgery for decompression of spinal cord Z98.890
--- OUTSIDE RECORDS SUMMARY | 2024-05-21 15:24 | XMS_ITS | Encounter Summary ---
Author Organization [facility] Address [address] [place] [address] Care Team Providers Care Internal Auditor Name Role Phone Jadon Dunn MD Primary Care Provider [phone] Encounter Details Date Type Department Care Team (Late st Contact Info) Description 01/27/2023 Orders Only [facility] Interventional Radiology [address] [place] [address] [phone] Jenniffer Swanson MD [address] [place] [address] [phone] Social History Tobacco Use Types Packs/Day Years Used Date Smoking Tobacco: Never Smokeless Tobacco: Never Comments:: Alcohol Use Standard Drinks/Week Comments Yes 0 (1 standard drink = 0.6 oz pure alcohol) occasional, less than one drink per month Transportation Answer Date Recorded Please ollie the areas for wh ich the patient would like information or assistance: None Apply 01/25/2023 Lack of Transportation (Medical) Not on file 01/25/2023 Housing Stability Answer Date Recorded Please ollie the areas for wh ich the patient would like information or [...] Care Team (Late st Contact Info) Description 06/05/2024 1:30 PM EDT Office Visit [facility] B [address] [place] [address] Timo Payne MD [address] [place] [address] 06/19/2024 2:00 PM EDT Follow-Up [facility] Endocrinology Clinic [address] [place] [address] Digital Media Buyer: Anna Moody MD [address] [place] [address] 07/16/2024 8:00 AM EDT Appointment [facility] Cardiac Ultrasound [address] [place] [address] 07/16/2024 9:00 AM EDT Follow-Up [facility] 4th floor Cardiology Medicine [address] [place] [address] Digital Media Buyer: Iveth Padron 08/23/2024 3:00 PM EDT Office Visit [facility] Neurology Clinic [address] [place] [address] Luz Felix MD [address] [place] [address] 02/10/2025 4:40 PM EST Follow-Up [facility] 4th floor Cardiology Medicine [address] [place] [address] Digital Media Buyer: Angely Yancey MD [address] [place] [address] 04/08/2025 10:45 AM EST Follow-Up [facility] 85 [place] Pulmonology [address] [address] Hardeep Mayers MD [address] [address] documented as of this encounter Visit Diagnoses Not on filedocumented in this encounter Care Teams Internal Auditor Relationship Specialty Start Date End Date Jadon Dunn MD [address] [place] [address] PCP - General Family Medicine 08/25/16 documented as of this encounter
--- OUTSIDE RECORDS SUMMARY | 2024-05-21 15:24 | XMS_ITS | Clinical Summary ---
Author Organization [facility] Address [address] [place] [address] Care Team Providers Care Sales And Leasing Agent Name Role Phone Unavailable Primary Care Provider Unavailabl e Social History Tobacco Use Types Packs/Day Years Used Date Smoking Tobacco: Never Assessed Sex and Gender Information Value Date Recorded Sex Assigned at Not on file Legal Sex Male 8:57 PM EST Gender Identity Not on file Sexual Orientation Not on file Plan of Treatment Health Maintenance Due Date Last Done Comments Depression: Screening Annual ly using PHQ-2/9 in Adults 18 yrs or above (or HM Modifier)([facility]) 02/15/1966 Hepatitis C Virus Infection in Adolescents and Adults: Screening (or Modifier) ([facility]) 02/15/1966 SDOH Screening Reminder: Ingrid eric for all adults ([facility]) 02/15/1966 Tobacco Smoking Cessation: i n Adults excluding Women: Behavioral and Pharmacotherapy Interventions ([facility]) 02/15/1966 DTaP/Tdap/Td Vaccines ([facility]) (1 - Tdap) 02/15/1967 Lipid Screening: Every 5 yrs for Men aged 35+ (or HM Modifier) ([facility]) 1984 Pneumococcal Vaccination Scr eening: Patients 50+ yrs of age ([facility]) (1 of 1 - PCV) 02/15/1998 Zoster/Shingles Vaccine Seri es Screening: Adults aged 18+ yrs (or HM Modifiers)([facility]) (1 of 2) 02/15/1998 RSV Vaccines (1 - 1-dose 75+ series) 02/15/2023 Flu Vaccination: Ages 65+: Y early High Dose Recommended (or Modifier)([facility]) 09/07/2023 COVID-19 Vaccine Screening: Initial Series and Booster Status ([facility]) ( - 2023-25 season) 2023 Medical Devices Not on [place] [address] [place] [address]
--- OUTSIDE RECORDS SUMMARY | 2024-05-21 15:24 | XMS_ITS | Encounter Summary ---
Author Organization [facility] Address [address] [place] [address] Care Team Providers Care Lieutenant Ballistics Name Role Phone Jadon Dunn MD Primary Care Provider [phone] Encounter Details Date Type Department Care Team (Late st Contact Info) Description 07/03/2021 myChart Message [facility] [address] [place] [address] Mychart, Generic Provider [address] [place] [phone] Follow up appointment requested Social History Tobacco [...] Description 06/05/2024 1:30 PM EDT Office Visit [facility] B [address] [place] [address] Timo Payne MD [address] [place] [address] 06/19/2024 2:00 PM EDT Follow-Up [facility] Endocrinology Clinic [address] [place] [address] Assembly Line Driver: Anna Moody MD [address] [place] [address] 07/16/2024 8:00 AM EDT Appointment [facility] Cardiac Ultrasound [address] [place] [address] 07/16/2024 9:00 AM EDT Follow-Up [facility] 4th floor Cardiology Medicine [address] [place] [address] Assembly Line Driver: Iveth Padron 08/23/2024 3:00 PM EDT Office Visit [facility] Neurology Clinic [address] [place] [address] Luz Felix MD [address] [place] [address] 02/10/2025 4:40 PM EST Follow-Up [facility] 4th floor Cardiology Medicine [address] [place] [address] Assembly Line Driver: Angely Yancey MD [address] [place] [address] 04/08/2025 10:45 AM EST Follow-Up [facility] 85 [place] Pulmonology [address] [place] [address] Hardeep Mayers MD [address] [place] [address] documented as of this encounter Visit Diagnoses Not on filedocumented in this encounter Care Teams Lieutenant Ballistics Relationship Specialty Start Date End Date Jadon Dunn MD [address] [place] [address] PCP - General Family Medicine 08/25/16 documented as of this encounter
--- OUTSIDE RECORDS SUMMARY | 2024-05-21 15:24 | XMS_ITS | Encounter Summary ---
Author Organization [facility] Address [address] [place] [address] Care Team Providers Care Basting Puller Name Role Phone Jadon Dunn MD Primary Care Provider [phone] Encounter Details Date Type Department Care Team (Latest Contact Info) Description 03/09/2023 [facility] Interventional Lab [address] [place] [address] Mychart, Generic Provider [address] [place] [address] Pre-procedure instructions/ Coronary angiography Social History Tobacco [...] Description 06/05/2024 1:30 PM EDT Office Visit [facility] B [address] [place] [address] Timo Payne MD [address] [place] [address] 06/19/2024 2:00 PM EDT Follow-Up [facility] Endocrinology Clinic [address] [place] [address] Data Warehousing Manager: Anna Moody MD [address] [place] [address] 07/16/2024 8:00 AM EDT Appointment [facility] Cardiac Ultrasound [address] [place] [address] 07/16/2024 9:00 AM EDT Follow-Up [facility] 4th floor Cardiology Medicine [address] [place] [address] Data Warehousing Manager: Iveth Padron 08/23/2024 3:00 PM EDT Office Visit [facility] Neurology Clinic [address] [place] [address] Luz Felix MD [address] [place] [address] 02/10/2025 4:40 PM EST Follow-Up [facility] 4th floor Cardiology Medicine [address] [place] [address] Data Warehousing Manager: Angely Yancey MD [address] [place] [address] 04/08/2025 10:45 AM EST Follow-Up [facility] 85 [place] Pulmonology [address] [place] [address] Hardeep Mayers MD [address] [address] documented as of this encounter Visit Diagnoses Not on filedocumented in this encounter Care Teams Basting Puller Relationship Specialty Start Date End Date Jadon Dunn MD [address] [place] [address] PCP - General Family Medicine 08/25/16 documented as of this encounter
--- OUTSIDE RECORDS SUMMARY | 2024-05-21 15:24 | XMS_ITS | Clinical Summary ---
Author Organization [facility] Address [address] [place] [address] Care Team Providers Care Lime Boiler Name Role Phone Unavailable Primary Care Provider [...] Date of Phone Billing Address Personal/Family [address] [place] [address] MEDICARE PART B [facility] MEDICARE-SUPPLEMENTAL
--- OUTSIDE RECORDS SUMMARY | 2024-05-21 15:24 | XMS_ITS | Referral Summary ---
Author Organization [facility] Address [address] [place] [address] Care Team Providers Care Plant Controller Name Role Phone Jadon Dunn MD Primary Care Provider [phone] Encounters Date Type Department Care Team Description 04/20/2024 Refill [facility] [address] [place] [phone] Luz Felix MD 04/12/2024 3:30 PM EST Office Visit [facility] [address] [place] [address] Luz Felix MD Alzheimer's disease (Primary Dx) 04/08/2024 Orders Only [facility] [place] [address] [place] [phone] Provider, MD Tommy 04/06/2024 External Contact [facility] [address] [facility] [facility] [address] [place] [address] Hardeep Mayers MD GONSALO (obstructive sleep apnea) [G47.33] (Primary Dx) 04/06/2024 Telephone [facility] [address] [facility] [address] [place] [address] Hardeep Mayers MD HST Results - CPAP 04/03/2024 myChart Message [facility] [address] [facility] [address] [place] [phone] Mycrachelt, Generic Provider APPOINTMENT 04/02/2024 Telephone [place] [phone] [facility] [address] [place] [phone] Hardeep Mayers MD 04/02/2024 10:45 AM EST Follow-Up [place] [address] [facility] [address] [place] [address] [address] [place] [phone] Hardeep Mayers MD GONSALO (obstructive sleep apnea) (Primary Dx) 03/09/[address] [phone] Jadon uDnn MD 03/01/2024 myChart Message [address] [phone] Jadon Dunn MD Refill needed on tramadol 03/01/[address] [phone] Jadon Dunn MD Spinal stenosis, unspecified spinal region (Primary Dx) 03/01/2024 Orders Only [address] [phone] Jadon Dunn MD 03/01/2024 Telephone [facility] [address] [place] [address] Telephone Intake, Staff PAC Appt Request - Established- Luz Felix MD 02/28/2024 Orders Only [address] [phone] Jadon Dunn MD Spinal stenosis, unspecified spinal region (Primary Dx) 02/28/[address] [phone] Jadon Dunn MD 02/22/2024 Documentation [facility] [address] [place] [address] Jadon Dunn MD from Last 3 Months Allergies No known [...] DIRECTED. 90 tablet 3 11/15/19 24 Active methIMAzole (TAPAZOLE) 5 mg tablet Take 1 tablet (5 mg total) by mouth once a day. 90 tablet 3 12/22/19 24 Active diclofenac (VOLTAREN) 75 mg EC tablet Take 1 tablet (75 mg total) by mouth 2 times a day. 60 tablet 1 03/01/19 25 Active oxyCODONE-acetam inophen (PERCOCET) 5-325 mg tablet Take 1 tablet by mouth every 6 hours as needed. 01/05/20 24 Active donepeziL (ARICEPT) 5 mg tablet Take 1 tablet (5 mg total) by mouth nightly. 30 tablet 5 04/13/19 25 025 Active sertraline (ZOLOFT) 25 mg tablet Take 2 tablets by mouth once daily 60 tablet 5 04/24/19 25 Active sertraline (ZOLOFT) 25 mg tablet Take 2 tablets (50 mg total) by mouth once a day. 60 tablet 3 11/18/19 24 025 Discontinued Active Problems Problem Noted Date Diagnosed Date Acute neuritis 01/16/2024 Assessment & Plan (01/16/2024 5:05 PM EST): Differential includes infectious versus secondary to the Tapazole versus referred pain from the lumbar spine. Will obtain labs. Venous duplex in [place] demonstrated no sign of a DVT so [...] day. He should schedule follow-up with his cardiopulmonary specialist. 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 Will refer [...] y and up) 10/14/2023,10/30/2022 Covid-19, Pfizer, mRNA, [place] valent, PF 30 mcg/0.3 mL dose (for [...] Vaccine, 23 Valent 04/03/2013 Pneumococcal conjugate PCV20,polysaccharide [id number] conjugate, adjuvant, PF (Prevnar 20) 11/27/2022 RSV, [...] = 0.6 oz pur e alcohol) holidays [facility] Utilities Answer Date Recorded In the past 12 months has e [employer], gas, oil, or water [employer] threatened to shut off services in your [...] Sign Reading Time Taken Comments Blood Pressure 114/78 04/12/2024 3:06 PM EST Pulse 74 04/12/2024 3:06 PM EST Temperature 37.1 ??C (98.7 ??F) 04/12/2024 3:06 PM ES T Respiratory Rate 16 04/12/2024 3:06 PM EST Oxygen Saturation 97% 04/12/2024 3:06 PM EST Inhaled Oxygen Concentration - - Weight 79.4 kg (175 lb) 04/12/2024 3:06 PM EST Height 177.8 cm (5' 10 ) 04/12/2024 3:06 PM EST Body Mass Index 25.11 04/12/2024 3:06 PM EST Plan of Treatment Upcoming Encounters Date Type Department Care Team (Late st Contact Info) Description 06/05/2024 1:30 PM EDT Office Visit [facility] [address] [place] [phone] Timo Payne MD [address] [place] [address] 06/19/2024 2:00 PM EDT Follow-Up [facility] [address] [place] [address] Prop Drawer: Anna Moody MD [address] [place] [address] 07/16/2024 8:00 AM EDT Appointment [facility] Cardiac Ultrasound [address] [place] [address] 07/16/2024 9:00 AM EDT Follow-Up [facility] 4th floor Cardiology Medicine [address] [place] [address] Prop Drawer: Iveth Padron 08/23/2024 3:00 PM EDT Office Visit [facility] [address] [place] [address] Luz Felix MD [address] [place] [address] 02/10/2025 4:40 PM EST Follow-Up [facility] 4th floor Cardiology Medicine [address] [place] [address] Prop Drawer: Angely Yancey MD [address] [place] [address] 04/08/2025 10:45 AM EST Follow-Up [facility] [address] [facility] [address] [place] [address] Hardeep Mayers MD [address] [address] Medical Devices Implanted Type Area Drivematic Machine Operator Device Identifier Shelf Expiration Date Model / Serial / Lot System Closure And Repair Suture-Mediated Perclose Prostyle - S0 - [id number] Implanted:Qty: 1 on 06/20/2023 by Tina Reyes MD at [facility] Implant Right: Groin [employer] [id number] 03/08/2025 [id number] / 0 / [id number] System Closure And Repair Suture-Mediated Perclose Prostyle - S0 - [id number] Implanted:Qty: 1 on 06/20/2023 by Tina Reyes MD at [facility] Implant Right: Groin [employer] [id number] 03/08/2025 [id number] / 0 / [id number] Device Closure Vascular Plug 6fr Angio-Seal Vip - S0 - [id number] Implanted:Qty: 1 on 06/20/2023 by Tina Reyes MD at [facility] Implant Left: Groin [employer] [id number] 12/23/2023 [id number] / 0 / [id number] Valve Heart Transcatheter With Commander System 26mm Barrett Leah 3 Ultra Resilia - [id number] - [id number] Implanted:Qty: 1 on 06/20/2023 by Tina Reyes MD at [facility] Tissue N/A: Heart [employer] 09/26/2025 [id number] / [id number] / Explanted Type Area Drivematic Machine Operator Device Identifier Shelf Expiration Date Model / Serial / Lot Catheter Femoral Insertion [place]umar J-Tip 5fr 90cm - S0 - [id number] Explanted:Qty: 1 on 06/20/2023 by Tina Reyes MD at [facility] Catheter Left: Vein [employer] [id number] 12/25/2024 [id number] / 0 / [id number] Procedures * Due to [place] coComment law, this organization might not be sharing negative HIV tests. Procedure Name Priority Date/Time Associated Diagnosis Comments SLEEP STUDY - SCANNED Routine 04/03/2024 8:11 AM EST PROCEDURE - SCANNED 03/20/2024 PROCEDURE - SCANNED 03/20/2024 MRI LUMBAR SPINE WO CONTRAST Routine 02/25/2024 5:20 PM EST Sciatica of left side IMAGING - SCANNED 02/25/2024 COMPREHENSIVE METABOLIC PANEL Routine 01/17/2024 1:57 PM EST Acute neuritis HEPATITIS PANEL, ACUTE Routine 11:38 AM EST COLONOSCOPY 11/02/2015 11:14 AM EDT from Last 3 Months or Most Recently Relevant to Health Maintenance Results * Due to [place] coComment law, this organization might not be sharing [...] obtain the completed interpretation. ? Workstation ID: [id number] Narrative 02/27/2024 11:01 AM EST INDICATION: Severe [...] of the paraspinal musculature. Resulting Agency Comment [id number] Procedure Note Benjamin Chamorro MD - 02/27/2024 [...] possible to obtain thecompleted interpretation. Workstation ID: [id number] us Jadon Dunn MD IMG MRI PROCEDURES Final Resul t * IMAGING - SCANNED (02/25/2024) Anatomical Region Laterality Modality Other us Onbase Scan [facility] SCANNED PROCEDURES Final Resu lt * Comprehensive Metabolic Panel (01/17/2024 1:57 PM EST) Glucose 127 65 - 139 mg/dL 01/18/2024 9:21 AM EST [employer] Comment: ? Non-fasting reference interval BUN 17 7 - 25 mg/dL 01/18/2024 9:21 AM EST [employer] Creatinine 0.87 0.70 - 1.28 mg/dL 01/18/2024 9:21 AM EST [employer] eGFR 90 > OR = 60 mL/min/1. 73m2 01/18/2024 9:21 AM [facility] Bun/Creatinine Ratio SEE NOTE: 6 - (calc) 01/18/2024 9:21 AM [facility] Comment: ?? Not Reported: BUN and Creatinine are within ?? reference range. ? Sodium 145 135 - 146 mmol/L 01/18/2024 9:21 AM [facility] Potassium 4.2 3.5 - 5.3 mmol/L 01/18/2024 9:21 AM [facility] Chloride 109 98 - 110 mmol/L 01/18/2024 9:21 AM [facility] Carbon Dioxide 26 20 - 32 mmol/L 01/18/2024 9:21 AM [facility] Calcium 9.5 8.6 - 10.3 mg/dL 01/18/2024 9:21 AM [facility] Protein, Total 7.1 6.1 - 8.1 g/dL 01/18/2024 9:21 AM [facility] Albumin 4.7 3.6 - 5.1 g/dL 01/18/2024 9:21 AM [facility] Globulin 2.4 1.9 - 3.7 g/dL (calc) 01/18/2024 9:21 AM [facility] Albumin/Globuli n Ratio 2.0 1.0 - 2.5 (calc) 01/18/2024 9:21 AM [facility] Bilirubin, Total 1.0 0.2 - 1.2 mg/dL 01/18/2024 9:21 AM [facility] Alkaline Phosphatase 56 35 - 144 U/L 01/18/2024 9:21 AM [facility] AST 13 10 - 35 U/L 01/18/2024 9:21 AM [facility] ALT 15 9 - 46 U/L 01/18/2024 9:21 AM [facility] Blood Structure of peripheral vein / Unknown 01/17/2024 1:57 PM EST 01/18/2024 2:54 AM EST Narrative [facility] - 01/24/2024 1:58 PM EST FASTING:NO us Jadon Dunn MD LAB BLOOD ORDERABLES Final Res ult Performing Organization Address City/[facility]/ZIP Co de Phone Number [facility] [address], [place] [address], [place] [phone] [facility] [address] [address] * Hepatitis Panel, Acute (04/05/2016 11:38 AM EST) Hepatitis A IgM NON-REACT LUCA NON-REACT LUCA [facility] Hepatitis B Surface Antigen NON-REACT LUCA NON-REACT LUCA [facility] Hepatitis B Core Antibody NON-REACT LUCA NON-REACT LUCA [facility] Hepatitis C Antibody NON-REACT LUCA NON-REACT LUCA [facility] Signal To Cut-Off 0.01 <1.00 [facility] 04/05/2016 11:3 8 AM EST 04/05/2016 3:02 PM EST Narrative [facility] - 04/05/2016 7:15 PM EST Report Comments: Received Date: [id number] us Jadon Dunn MD LAB BLOOD ORDERABLES Final Res ult Performing Organization Address [facility] Co de Phone Number [facility] [address], [facility] [place] [address], [place] [phone] * COLONOSCOPY (11/02/2015 11:14 AM EDT) Narrative [...] and oxygen saturations were monitored continuously. The [id number] was introduced through the anus and advanced [...] Recently Relevant to Health Maintenance Insurance MEDICARE [facility] Advance Directives Documents on File Type Date Recorded Patient Mate Fourth Expl anation Health Care Proxy 01/16/2024 3:17 [...] Son Alternate Health Care Agent Care Teams Plant Controller Relationship Specialty Start Date End Date Jadon Dunn MD [address] [place] [phone] PCP - General Family Medicine 08/25/16
--- OUTSIDE RECORDS SUMMARY | 2024-05-21 15:24 | XMS_ITS | Clinical Summary ---
Author Organization [facility] Address [address] [place] [address] Care Team Providers Care Equipment Washer Name Role Phone Jadon Dunn MD Primary Care Provider [phone] Allergies No known active allergies Medications * [...] maintenance issues. Advanced directive is [facility] in [facility] Assessment & Plan (07/14/2020 1:39 PM [...] day. 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 Assessment & Plan (06/20/2023 9:34 AM EDT): [...] Unsure if this is because of his semi-half-way or because of insufficient sleep. Will refer [...] diagnosed with essential tremor years ago by [facility] neurology Assessment & Plan (07/14/2021 3:15 [...] the repeat echo. Will order today. Encounters Date Type Department Care Team Description 04/20/2024 Refill [facility] [address] [place] [address] Luz Felix MD 04/12/2024 3:30 PM EST Office Visit [facility] [address] [place] [phone] Luz Felix MD Alzheimer's disease (Primary Dx) 04/08/2024 Orders Only [facility] [address] [place] [phone] Provider, MD Tommy 04/06/2024 External Contact [facility] [address] [place] [facility] [address] [place] [phone] Hardeep Mayers MD GONSALO (obstructive sleep apnea) [G47.33] (Primary Dx) 04/06/2024 Telephone [facility] [address] [place] [phone] Hardeep Mayers MD HST Results - CPAP 04/03/2024 myChart Message [facility] [address] [place] [facility] [address] [place] [phone] [place] Generic Provider APPOINTMENT 04/02/2024 10:45 AM EST Follow-Up [facility] [address] [place] [facility] [address] [place] [phone] Hardeep Mayers MD GONSALO (obstructive sleep apnea) (Primary Dx) 04/02/2024 Telephone [facility] [address] [place] [facility] [address] [place] [phone] Hardeep Mayers MD 03/09/[address] [phone] Jadno Dunn MD 03/01/2024 myChart Message [facility] [address] [place] [phone] Jadon Dunn MD Refill needed on tramadol 03/01/[address] [phone] Jadon Dunn MD Spinal stenosis, unspecified spinal region (Primary Dx) 03/01/2024 Orders Only [address] [phone] Jadon Dunn MD 03/01/2024 Telephone [facility] [address] [place] [address] Telephone Intake, Staff PAC Appt Request - Established- Luz Felix MD 02/28/2024 Orders Only [address] [phone] Jadon Dunn MD Spinal stenosis, unspecified spinal region (Primary Dx) 02/28/[address] [phone] Jadon Dunn MD 02/22/[address] [phone] Jadon Dunn MD from Last 3 Months Immunizations Immunization Administration Dates Next Due COVID-19, Pfizer, mRNA, Biva lent Booster, PF, 30 mcg/0.3 mL dose (for age 12 y and up) 06/21/2022 Covid-19, Moderna, mRNA, Vac cine, PF, 50 mcg/0.5 mL (for age 12 y and up) 10/14/2023,10/30/2022 Covid-19, Pfizer, mRNA, Loup valent, PF 30 mcg/0.3 mL dose (for [...] Vaccine, 23 Valent 04/03/2013 Pneumococcal conjugate PCV20,polysaccharide [id number] conjugate, adjuvant, PF (Prevnar 20) 11/27/2022 RSV, [...] = 0.6 oz pur e alcohol) holidays [facility] Utilities Answer Date Recorded In the past 12 months has th e [employer], gas, oil, or water [employer] threatened to shut off services in your [...] Description 06/05/2024 1:30 PM EDT Office Visit [facility] [address] [place] [address] Timo Payne MD [address] [place] [phone] 06/19/2024 2:00 PM EDT Follow-Up [facility] [address] [place] [address] Gas And Oil Checker: Anna Moody MD [address] [place] [address] 07/16/2024 8:00 AM EDT Appointment [facility] Cardiac Ultrasound [address] [place] [address] 07/16/2024 9:00 AM EDT Follow-Up [facility] 4th floor Cardiology Medicine [address] [place] [address] Gas And Oil Checker: Iveth Padron 08/23/2024 3:00 PM EDT Office Visit [facility] [address] [place] [address] Luz Felix MD [address] [place] [address] 02/10/2025 4:40 PM EST Follow-Up [facility] 4th floor Cardiology Medicine [address] [place] [address] Gas And Oil Checker: Angely Yancey MD [address] [place] [address] 04/08/2025 10:45 AM EST Follow-Up [facility] [address] [place] [facility] [address] [place] [phone] Hardeep Mayers MD [address] [address] Health Maintenance Due Date Last Done Comments Medicare AWV 07/28/2023 07/27/2022, 0609/2021, 07/14/2020, Additional history exists Alcohol/Substance Use Screening 02/07/2024 4 COVID-19 Vaccine (2023-2 5 season) 2024 10/14/2023, 10/30/2022, 06/21/2022, Additional history exists Basic Metabolic Panel 01/16/2025 01/17/2024 , 06/21/2023, 06/20/2023, Additional history exists Fall Risk Screening 04/12/2025 04/12/2024, 0 DTaP,Tdap,and Td Vaccines (4 - Td or Tdap) 06/21/2032 06/21/2022, 02/22/2012, 12/04/1992 Tobacco Screening 02/06/2042 04/12/2024 Hepatitis C Screening Completed 04/05/2016 Zoster Vaccines [...] Sigmoidoscopy Discontinued Social Drivers of Health Ingrid ual Screening Discontinued Medical Devices Implanted Type Area Insulation Board Head Saw Operator Device Identifier Shelf Expiration Date Model / Serial / Lot System Closure And Repair Suture-Mediated Perclose Prostyle - S0 - [id number] Implanted:Qty: 1 on 06/20/2023 by Tina Reyes MD at [facility] Implant Right: Groin [employer] [id number] 03/08/2025 [id number] / 0 / [id number] System Closure And Repair Suture-Mediated Perclose Prostyle - S0 - [id number] Implanted:Qty: 1 on 06/20/2023 by Tina Reyes MD at [facility] Implant Right: Groin [employer] [id number] 03/08/2025 [id number] / 0 / [id number] Device Closure Vascular Plug 6fr Angio-Seal Vip - S0 - [id number] Implanted:Qty: 1 on 06/20/2023 by Tina Reyes MD at [facility] Implant Left: Groin [employer] [id number] 12/23/2023 [id number] / 0 / [id number] 91 Valve Heart Transcatheter With Commander System 26mm Barrett Leah 3 Ultra Resilia - [id number] - [id number] Implanted:Qty: 1 on 06/20/2023 by Tina Reyes MD at [facility] Tissue N/A: Heart [employer] 09/26/2025 [id number] / [id number] / Explanted Type Area Insulation Board Head Saw Operator Device Identifier Shelf Expiration Date Model / Serial / Lot Catheter Femoral Insertion [place] J-Tip 5fr 90cm - S0 - [id number] Explanted:Qty: 1 on 06/20/2023 by Tina Reyes MD at [facility] Catheter Left: Vein [employer] [id number] 12/25/2024 [id number] / 0 / [id number] Procedures * Due to [employer] law, this organization might not be sharing [...] Health Maintenance Results * Due to [employer] law, this organization might not be sharing negative HIV tests. * SLEEP STUDY - SCANNED (04/03/2024 8:11 AM EST) us Unknown Provider SCANNED PROCEDURES Final Res ult * PROCEDURE [...] obtain the completed interpretation. ? Workstation ID: [id number] Narrative 02/27/2024 11:01 AM EST INDICATION: Severe [...] of the paraspinal musculature. Resulting Agency Comment [id number] Procedure Note Benjamin Chamorro MD - 02/27/2024 [...] possible to obtain thecompleted interpretation. Workstation ID: [id number] us Jadon Dunn MD IM MRI PROCEDURES Final Resul t * IMAGING - SCANNED (02/25/2024) Anatomical Region Laterality Modality Other us Onbase Scan [facility] SCANNED PROCEDURES Final Resu lt * Comprehensive Metabolic Panel (01/17/2024 1:57 PM EST) Glucose 127 65 - 139 mg/dL 01/18/2024 9:21 AM EST [facility] Comment: ? Non-fasting reference interval BUN 17 7 - 25 mg/dL 01/18/2024 9:21 AM EST [facility] Creatinine 0.87 0.70 - 1.28 mg/dL 01/18/2024 9:21 AM [facility] eGFR 90 > OR = 60 mL/min/1. 73m2 01/18/2024 9:21 AM [facility] Bun/Creatinine Ratio SEE NOTE: 6 - 22 (calc) 01/18/2024 9:21 AM [employer] [facility] Comment: ?? Not Reported: BUN and Creatinine are within ?? reference range. ? Sodium 145 135 - 146 mmol/L 01/18/2024 9:21 AM [facility] Potassium 4.2 3.5 - 5.3 mmol/L 01/18/2024 9:21 AM [facility] Chloride 109 98 - 110 mmol/L 01/18/2024 9:21 AM [facility] Carbon Dioxide 26 20 - 32 mmol/L 01/18/2024 9:21 AM [facility] Calcium 9.5 8.6 - 10.3 mg/dL 01/18/2024 9:21 AM [facility] Protein, Total 7.1 6.1 - 8.1 g/dL 01/18/2024 9:21 AM [facility] Albumin 4.7 3.6 - 5.1 g/dL 01/18/2024 9:21 AM [facility] Globulin 2.4 1.9 - 3.7 g/dL (calc) 01/18/2024 9:21 AM [facility] Albumin/Globuli n Ratio 2.0 1.0 - 2.5 (calc) 01/18/2024 9:21 AM [facility] Bilirubin, Total 1.0 0.2 - 1.2 mg/dL 01/18/2024 9:21 AM [facility] Alkaline Phosphatase 56 35 - 144 U/L 01/18/2024 9:21 AM [facility] AST 13 10 - 35 U/L 01/18/2024 9:21 AM [facility] ALT 15 9 - 46 U/L 01/18/2024 9:21 AM [facility] Blood Structure of peripheral vein / Unknown 01/17/2024 1:57 PM EST 01/18/2024 2:54 AM EST Narrative [facility] - 01/24/2024 1:58 PM EST FASTING:NO us Jadon Dunn MD LAB BLOOD ORDERABLES Final Res ult Performing Organization Address City/[facility]/ZIP Co de Phone Number [facility] [address], [place] [address], [facility] [address] [address] * Hepatitis Panel, Acute (04/05/2016 11:38 AM EST) Hepatitis A IgM NON-REACT LUCA NON-REACT LUCA [employer] [facility] Hepatitis B Surface Antigen NON-REACT LUCA NON-REACT LUCA [employer] [facility] Hepatitis B Core Antibody NON-REACT LUCA NON-REACT LUCA [employer] [facility] Hepatitis C Antibody NON-REACT LUCA NON-REACT LUCA [employer] [facility] Signal To Cut-Off 0.01 <1.00 [employer] [facility] 04/05/2016 11:3 8 AM EST 04/05/2016 3:02 PM EST Narrative [employer] [facility] - 04/05/2016 7:15 PM EST Report Comments: Received Date: [id number] Jadon Dunn MD LAB BLOOD ORDERABLES Final Res ult Performing Organization Address City/[facility] Co de Phone Number [facility] [address], [facility] [place] [address], [place] [phone] * COLONOSCOPY (11/02/2015 11:14 AM EDT) Narrative [...] and oxygen saturations were monitored continuously. The [id number] was introduced through the anus and advanced [...] Recently Relevant to Health Maintenance Insurance MEDICARE [facility] SUPP Advance Directives Documents on File Type Date Recorded Patient Deputy Clerk Expl anation Health Care Proxy 01/16/2024 3:17 [...] Name Relationship Healthcare Agent Relationshi p Communication July Jorge Spouse Health Care Agent Yesika Guo Daughter Alternate Health Care Agent Chase Patel Son Alternate Health Care Agent Care Teams Equipment Washer Relationship Specialty Start Date End Date Jadon Dunn MD [address] [place] [address] PCP - General Family Medicine 08/25/16
== END 2024-05-21 14:00 | disposition home or self-care (01) ==
LOC: HO.HNS 12:38
PROVIDERS: PCP Family Medicine; Visit Provider Physician Assistant
DX: Z98.890 Other specified postprocedural states (principal)
CPT/HCPCS: 99024

== ENCOUNTER → 2024-05-21 12:38 | Outpatient (BNVA) | payer MEDICARE, SELFPAY | PROVIDERS: PCP Family Medicine; Visit Provider Physician Assistant | DX: Z47.89 Encounter for other orthopedic aftercare (principal); Z98.890 Other specified postprocedural states | CPT/HCPCS: 99212 ==